=== PATIENT | male | born 1940 | race Caucasian/White ===

== ENCOUNTER 2018-10-17 14:52 | Inpatient (IN) | payer MEDICARE, OTHER ==
[2018-10-17] MEDS ORDERED: Albuterol/Ipratropium 3.0-0.5 MG/3 ML Neb Soln NEB ONE (15:00)
[2018-10-17] MEDS ORDERED: Albuterol/Ipratropium 3.0-0.5 MG/3 ML Neb Soln ONE (15:10)
[2018-10-17] MEDS ORDERED: Sodium Chloride 0.9% 10 ML Syringe FLUSH PRN (15:14)
[2018-10-17] MEDS ORDERED: Sodium Chloride 0.9% 2.5 ML Syringe FLUSH PRN (15:14)
--- NOTE | 2018-10-17 15:30 | EDM.PDOC ---
ED HPI GENERAL MEDICAL PROBLEM - General Chief Complaint: Respiratory Problem Stated Complaint: FLU SYMPTOMS Time Seen by Provider: 10/17/18 14:58 Source of Information: Reports: Patient History Limitations: Reports: No Limitations - History of Present Illness INITIAL COMMENTS - FREE TEXT/NARRATIVE: Presents to the ER reporting a 2 to three-day history of cough, fatigue, headache, low-grade fever. [id number] smoking history but quit 25 years ago. Long-standing chronic sinus problems with left deviated septum and inability to breathe through nose long-standing. No chest pain and denies a true sensation of shortness of breath. Headache Pain Score (Numeric/FACES): 9 - Related Data Allergies Allergy/AdvReac Type Severity Reaction Status Date / Time Penicillins Allergy Hives Verified 10/17/18 15:11 Home Meds: Home Meds Gabapentin [Neurontin] 10/17/18 [History] Hydrochlorothiazide [Microzide] 10/17/18 [History] Lisinopril 10/17/18 [History] Tamsulosin [Flomax] 10/17/18 [History] metFORMIN [Glucophage XR] 10/17/18 [History] Past Medical History Cardiovascular History: Reports: High Cholesterol, Hypertension Genitourinary History: Reports: BPH Neurological History: Reports: Neuropathy, Peripheral Endocrine/Metabolic History: Reports: Other (See Below) Other Endocrine/Metabolic History: pre-diabetic - Infectious Disease History Infectious Disease History: Reports: Chicken Pox, Measles, Mumps Social & Family History - Family History Family Medical History: Noncontributory - Tobacco Use Smoking Status *Q: Former Smoker Used Tobacco, but Quit: Yes Month/Year Tobacco Last Used: 25 years - Recreational Drug Use Recreational Drug Use: No ED ROS GENERAL - Review of Systems Review Of Systems: ROS reveals no pertinent complaints other than HPI. ED EXAM, GENERAL - Physical Exam Exam: See Below Exam Limited By: No Limitations General Appearance: Alert, Mild Distress Ears: Normal External Exam, Normal TMs Throat/Mouth: Normal Inspection, Normal Oropharynx Head: Atraumatic, Normocephalic Neck: Normal Inspection, Supple, Non-Tender. No: Lymphadenopathy (L), Lymphadenopathy (R) Respiratory/Chest: No Respiratory Distress, Lungs Clear, Normal Breath Sounds, No Accessory Muscle Use Cardiovascular: Normal Peripheral Pulses, Regular Rate, Rhythm Psychiatric: Normal Affect, Normal Mood Skin Exam: Warm, Dry, Intact, Normal Color, No Rash Lymphatic: No Adenopathy Course - Vital Signs Last Recorded V/S: Last Vital Signs Temp 37.2 C 10/17/18 15:00 Pulse 86 10/17/18 15:20 Resp 20 10/17/18 15:00 BP 125/71 10/17/18 15:00 Pulse Ox 78 L 10/17/18 15:00 - Orders/Labs/Meds Orders: Active Orders 24 hr Category Date Time Status EKG Documentation Completion [RC] STAT Care 10/17/18 15:14 Active RT Aerosol Therapy [RC] ASDIRECTED Care 10/17/18 15:50 Active CULTURE STREP A CONFIRMATION [] Stat Lab 10/17/18 15:27 Results STREP SCRN A RAPID W CULT CONF [] Stat Lab 10/17/18 15:27 Results Sodium Chloride 0.9% [Saline Flush] Med 10/17/18 15:14 Active 10 ml FLUSH ASDIRECTED PRN Sodium Chloride 0.9% [Saline Flush] Med 10/17/18 15:14 Active 2.5 ml FLUSH ASDIRECTED PRN Saline Lock Insert [OM.PC] Stat Oth 10/17/18 15:15 Ordered Medication Orders Sodium Chloride (Saline Flush) 10 ml FLUSH ASDIRECTED PRN PRN Reason: Keep Vein Open Sodium Chloride (Saline Flush) 2.5 ml FLUSH ASDIRECTED PRN PRN Reason: Keep Vein Open Labs: Laboratory Tests 10/17/18 10/17/18 10/17/18 Range/Units 15:20 15:20 15:20 WBC 6.27 (4.0-11.0) K/uL RBC 5.19 (4.50-5.90) M/uL Hgb 15.6 (13.0-17.0) g/dL Hct 49.7 (38.0-50.0) % MCV 95.8 (80.0-98.0) fL MCH 30.1 (27.0-32.0) pg MCHC 31.4 (31.0-37.0) g/dL RDW Std Deviation 55.0 (28.0-62.0) fl RDW Coeff of Edson 16 H (11.0-15.0) % Plt Count 151 (150-400) K/uL MPV 11.00 (7.40-12.00) fL Add Manual Diff YES Neutrophils % (Manual) 59 (48.0-80.0) % Band Neutrophils % 3 % Lymphocytes % (Manual) 21 (16.0-40.0) % Monocytes % (Manual) 16 H (0.0-15.0) % Eosinophils % (Manual) 1 (0.0-7.0) % Nucleated RBC % 0.0 /100WBC Absolute Seg Neuts 3.7 (1.4-5.7) Band Neutrophils # 0.2 Lymphocytes # (Manual) 1.3 (0.6-2.4) Monocytes # (Manual) 1.0 H (0.0-0.8) Eosinophils # (Manual) 0.1 (0.0-0.7) Nucleated RBCs # 0 K/uL Sodium 140 (136-148) mmol/L Potassium 3.9 (3.5-5.1) mmol/L Chloride 102 (98-107) mmol/L Carbon Dioxide 33.8 H (21.0-32.0) mmol/L BUN 25 H (7.0-18.0) mg/dL Creatinine 1.3 (0.8-1.3) mg/dL Est Cr Clr Drug Dosing 49.10 mL/min Estimated GFR (MDRD) 53.8 ml/min Glucose 119 H (74-106) mg/dL Calcium 9.4 (8.5-10.1) mg/dL Total Bilirubin 0.7 (0.2-1.0) mg/dL AST 31 (15-37) IU/L ALT 26 (14-63) IU/L Alkaline Phosphatase 104 (46-116) U/L Troponin I < 0.050 (0.000-0.056) ng/mL Total Protein 8.2 (6.4-8.2) g/dL Albumin 3.9 (3.4-5.0) g/dL Globulin 4.3 H (2.6-4.0) g/dL Albumin/Globulin Ratio 0.9 (0.9-1.6) Meds: Medications Generic Name Dose Route Start Last Admin Trade Name Freq PRN Reason Stop Dose Admin Sodium Chloride 10 ml 10/17/18 15:14 Saline Flush FLUSH ASDIRECTED PRN Keep Vein Open Sodium Chloride 2.5 ml 10/17/18 15:14 Saline Flush FLUSH ASDIRECTED PRN Keep Vein Open Discontinued Medications Generic Name Dose Route Start Last Admin Trade Name Adiel PRN Reason Stop Dose Admin Albuterol/Ipratropium Confirm 10/17/18 15:10 10/17/18 15:50 Duoneb 3.0-0.5 Mg/3 Ml Administered 10/17/18 15:11 Not Given Dose 3 ml .ROUTE .STK-MED ONE Albuterol/Ipratropium 3 ml 10/17/18 15:00 10/17/18 15:51 Duoneb 3.0-0.5 Mg/3 Ml NEB 10/17/18 15:01 3 ml ONETIME ONE Administration - Re-Assessments/Exams Free Text/Narrative Re-Assessment/Exam: 10/17/18 16:33 Dr. Allen here and reviewed case. Requires oxygen by mask at 8 L to keep his sat at 90%. Otherwise asymptomatic. Refer to observation Departure - Departure Time of Disposition: 16:33 Disposition: Refer to Observation Condition: Fair Clinical Impression: Influenza A - Discharge Information Referrals: PCP,None [Primary Care Provider] - Forms: ED Department Discharge - My Orders Last 24 Hours: My Active Orders 10/17/18 15:14 EKG Documentation Completion [RC] STAT Sodium Chloride 0.9% [Saline Flush] 10 ml FLUSH ASDIRECTED PRN Sodium Chloride 0.9% [Saline Flush] 2.5 ml FLUSH ASDIRECTED PRN 10/17/18 15:15 Saline Lock Insert [OM.PC] Stat 10/17/18 15:27 CULTURE STREP A CONFIRMATION [RM] Stat STREP SCRN A RAPID W CULT CONF [RM] Stat 10/17/18 15:50 RT Aerosol Therapy [RC] ASDIRECTED - Assessment/Plan Last 24 Hours: My Active Orders 10/17/18 15:14 EKG Documentation Completion [RC] STAT Sodium Chloride 0.9% [Saline Flush] 10 ml FLUSH ASDIRECTED PRN Sodium Chloride 0.9% [Saline Flush] 2.5 ml FLUSH ASDIRECTED PRN 10/17/18 15:15 Saline Lock Insert [OM.PC] Stat 10/17/18 15:27 CULTURE STREP A CONFIRMATION [RM] Stat STREP SCRN A RAPID W CULT CONF [RM] Stat 10/17/18 15:50 RT Aerosol Therapy [RC] ASDIRECTED
--- NOTE | 2018-10-17 15:52 | CR ---
EXAMINATION: Two-view chest (PA and Lateral views). HISTORY: Hypoxia. FINDINGS: The trachea is midline. The cardiomediastinal silhouette is within normal limits. Mild atelectasis and/or infiltrate within the lung bases. No pleural effusion. Interstitial prominence is also noted, likely representing emphysema. Osseous structures appear unremarkable. IMPRESSION: 1. Mild atelectasis and/or infiltrate.
[2018-10-17] MEDS ORDERED: Oseltamivir 75 MG Cap PO ONE (16:32)
[2018-10-17] MEDS ORDERED: Acetaminophen 500 MG Tab PO ONE (16:34)
[2018-10-17] MEDS ORDERED: Morphine 10 MG/ML Syringe IVPUSH PRN (16:48)
[2018-10-17] MEDS ORDERED: Ondansetron 4 MG Tab.DIS PO PRN (16:48)
[2018-10-17] MEDS ORDERED: Temazepam 15 MG Cap PO PRN (16:48)
[2018-10-17] MEDS ORDERED: Acetaminophen 325 MG Tab PO PRN (16:48)
[2018-10-17] MEDS ORDERED: Docusate Sodium 100 MG Cap PO PRN (16:48)
--- NOTE | 2018-10-17 16:57 | PCM.HP ---
H&P History of Present Illness - General Date of Service: 10/17/18 Admit Problem/Dx: Admission Diagnosis/Problem Admission Diagnosis/Problem Influenza Source of Information: Patient History Limitations: Reports: No Limitations - History of Present Illness Initial Comments - Free Text/Narative: The patient is a 77-year-old gentleman who has presented to the emergency department primarily with cough, chronic sinus congestion along with fever and chills. The patient says that he has been sick with these symptoms for approximately 2 days. The patient does not seek medical care locally. He was tested positive for influenza A in the emergency department. The patient has denied any pain. He has dizziness when coughing. The patient also has denied any nausea or vomiting. Patient says that other members in his family are sick as well. The patient's cough is dry although he feels like he needs to cough up something. He takes medication for prediabetes, hypertension and dyslipidemia. He has no other complaints presently. Onset of Symptoms: Reports: Gradual Duration of Symptoms: Reports: Day(s): Location: Reports: Chest Quality: Reports: Ache Severity: Moderate Improves with: Reports: Medication, Rest Worsens with: Reports: Breathing, Movement Context: Reports: Sick Contact Associated Symptoms: Reports: Cough, Fever/Chills Headache Pain Score (Numeric/FACES): 9 - Related Data Allergies/Adverse Reactions: Allergies Allergy/AdvReac Type Severity Reaction Status Date / Time Penicillins Allergy Hives Verified 10/17/18 15:11 Home Medications: Home Meds Gabapentin [Neurontin] 10/17/18 [History] Hydrochlorothiazide [Microzide] 10/17/18 [History] Lisinopril 10/17/18 [History] Tamsulosin [Flomax] 10/17/18 [History] metFORMIN [Glucophage XR] 10/17/18 [History] Past Medical History HEENT History: Reports: None Cardiovascular History: Reports: High Cholesterol, Hypertension Respiratory History: Reports: None Gastrointestinal History: Reports: None Genitourinary History: Reports: BPH Musculoskeletal History: Reports: None Neurological History: Reports: Neuropathy, Peripheral Psychiatric History: Reports: None Endocrine/Metabolic History: Reports: Other (See Below) Other Endocrine/Metabolic History: pre-diabetic Hematologic History: Reports: None Immunologic History: Reports: None Oncologic (Cancer) History: Reports: None Dermatologic History: Reports: None - Infectious Disease History Infectious Disease History: Reports: Chicken Pox, Measles, Mumps Social & Family History - Family History Family Medical History: Noncontributory - Tobacco Use Smoking Status *Q: Former Smoker Used Tobacco, but Quit: Yes Month/Year Tobacco Last Used: 25 years - Recreational Drug Use Recreational Drug Use: No - Living Situation & Occupation Living situation: Reports: , with Family Occupation: Retired H&P Review of Systems - Review of Systems: Review Of Systems: See Below General: Reports: Fever, Chills, Weakness HEENT: Reports: No Symptoms, Headaches Pulmonary: Reports: Shortness of Breath, Wheezing, Cough. Denies: Sputum, Hemoptysis Cardiovascular: Reports: Lightheadedness Gastrointestinal: Reports: No Symptoms Genitourinary: Reports: Retention Musculoskeletal: Reports: No Symptoms Skin: Reports: No Symptoms Psychiatric: Reports: No Symptoms Neurological: Reports: No Symptoms Hematologic/Lymphatic: Reports: No Symptoms Immunologic: Reports: No Symptoms Exam - Exam Exam: See Below - Vital Signs Vital Signs: Last Vital Signs Temp 36.6 C 10/17/18 16:33 Pulse 80 10/17/18 16:33 Resp 18 10/17/18 16:33 BP 166/75 H 10/17/18 16:33 Pulse Ox 90 L 10/17/18 16:33 Weight: 110.677 kg - Exam Quality Assessment: Supplemental Oxygen General: Alert, Oriented, Cooperative, Mild Distress HEENT: EACs Clear, EOMI, Hearing Intact, Nares Patent, PERRLA. No: Conjunctiva Clear (Inflamed), Mucosa Moist & [place] (Inflamed without pustular formations) Neck: Supple, Trachea Midline Lungs: Rales (Bibasilar) Cardiovascular: Regular Rate, Regular Rhythm GI/Abdominal Exam: Normal Bowel Sounds, Non-Tender, No Distention, Other (Obese) (Male) Exam: Deferred Rectal (Males) Exam: Deferred Back Exam: Normal Inspection, Full Range of Motion Extremities: Normal Inspection, No Pedal Edema Skin: Warm, Dry, Intact Neurological: Cranial Nerves Intact Neuro Extensive - Motor, Sensory, Reflexes: CN II-XII Intact Psychiatric: Alert, Normal Affect, Normal Mood - Patient Data Lab Results Last 24 hrs: Laboratory Results - last 24 hr 10/17/18 10/17/18 10/17/18 Range/Units 15:20 15:20 15:20 WBC 6.27 (4.0-11.0) K/uL RBC 5.19 (4.50-5.90) M/uL Hgb 15.6 (13.0-17.0) g/dL Hct 49.7 (38.0-50.0) % MCV 95.8 (80.0-98.0) fL MCH 30.1 (27.0-32.0) pg MCHC 31.4 (31.0-37.0) g/dL RDW Std Deviation 55.0 (28.0-62.0) fl RDW Coeff of Edson 16 H (11.0-15.0) % Plt Count 151 (150-400) K/uL MPV 11.00 (7.40-12.00) fL Add Manual Diff YES Neutrophils % (Manual) 59 (48.0-80.0) % Band Neutrophils % 3 % Lymphocytes % (Manual) 21 (16.0-40.0) % Monocytes % (Manual) 16 H (0.0-15.0) % Eosinophils % (Manual) 1 (0.0-7.0) % Nucleated RBC % 0.0 /100WBC Absolute Seg Neuts 3.7 (1.4-5.7) Band Neutrophils # 0.2 Lymphocytes # (Manual) 1.3 (0.6-2.4) Monocytes # (Manual) 1.0 H (0.0-0.8) Eosinophils # (Manual) 0.1 (0.0-0.7) Nucleated RBCs # 0 K/uL Sodium 140 (136-148) mmol/L Potassium 3.9 (3.5-5.1) mmol/L Chloride 102 (98-107) mmol/L Carbon Dioxide 33.8 H (21.0-32.0) mmol/L BUN 25 H (7.0-18.0) mg/dL Creatinine 1.3 (0.8-1.3) mg/dL Est Cr Clr Drug Dosing 49.10 mL/min Estimated GFR (MDRD) 53.8 ml/min Glucose 119 H (74-106) mg/dL Calcium 9.4 (8.5-10.1) mg/dL Total Bilirubin 0.7 (0.2-1.0) mg/dL AST 31 (15-37) IU/L ALT 26 (14-63) IU/L Alkaline Phosphatase 104 (46-116) U/L Troponin I < 0.050 (0.000-0.056) ng/mL Total Protein 8.2 (6.4-8.2) g/dL Albumin 3.9 (3.4-5.0) g/dL Globulin 4.3 H (2.6-4.0) g/dL Albumin/Globulin Ratio 0.9 (0.9-1.6) Result Diagrams: 10/18/18 06:00 10/18/18 06:00 Sammy Results Last 24 hrs: Microbiology 10/17/18 15:27 Group A Streptococcus Rapid Screen - Final Throat NEGATIVE STREP A SCREEN 10/17/18 15:27 Influenza Type A Antigen Screen - Final Nasopharyngeal Swab Positive Influenza A Ag Influenza Type B Antigen Screen - Final NEGATIVE INFLUENZA B VIRUS AG - Problem List (1) Acute respiratory failure SNOMED Code(s): 85579316 ICD Code: J96.00 - ACUTE RESPIRATORY FAILURE, UNSP W HYPOXIA OR HYPERCAPNIA Status: Acute Priority: High Current Visit: Yes Qualifiers: Respiratory failure complication: hypoxia Qualified Code(s): J96.01 - Acute respiratory failure with hypoxia (2) Influenza A SNOMED Code(s): 423107728 ICD Code: J10.1 - FLU DUE TO OTH IDENT INFLUENZA VIRUS W OTH RESP MANIFEST Status: Acute Priority: High Current Visit: Yes (3) BPH (benign prostatic hyperplasia) SNOMED Code(s): 441717281 ICD Code: N40.0 - BENIGN PROSTATIC HYPERPLASIA WITHOUT LOWER URINRY TRACT SYMP Status: Chronic Priority: Medium Current Visit: Yes Qualifiers: Lower urinary tract symptom presence: symptoms present Lower urinary tract symptom detail: urinary hesitancy Qualified Code(s): N40.1 - Benign prostatic hyperplasia with lower urinary tract symptoms; R39.11 - Hesitancy of micturition (4) Dyslipidemia associated with type 2 diabetes mellitus SNOMED Code(s): 60563394 ICD Code: E11.69 - TYPE 2 DIABETES MELLITUS WITH OTHER SPECIFIED COMPLICATION ; E78.5 - HYPERLIPIDEMIA, UNSPECIFIED Status: Chronic Priority: High Current Visit: Yes (5) Hypertension SNOMED Code(s): 97169087 ICD Code: I10 - ESSENTIAL (PRIMARY) HYPERTENSION Status: Chronic Priority : High Current Visit: Yes Qualifiers: Hypertension type: essential hypertension Qualified Code(s): I10 - Essential (primary) hypertension (6) Obesity (BMI 30-39.9) SNOMED Code(s): 429772780, 527846972 ICD Code: E66.9 - OBESITY, UNSPECIFIED Status: Chronic Priority: Medium Current Visit: Yes (7) Pre-diabetes SNOMED Code(s): 988686138 ICD Code: R73.03 - PREDIABETES Status: Chronic Priority: Medium Current Visit: Yes Problem List Initiated/Reviewed/Updated: Yes Orders Last 24hrs: Active Orders 24 hr Category Date Time Status Patient Status [ADT] Stat ADT 10/17/18 16:34 Active Blood Glucose Check, Bedside [RC] WITHMEALSANDBED Care 10/17/18 16:48 Active Blood Glucose Check, Bedside [RC] WITHMEALSANDBED Care 10/17/18 16:48 Active Diabetes Education [RC] Click to Edit Care 10/17/18 16:53 Active EKG Documentation Completion [RC] STAT Care 10/17/18 15:14 Active Oxygen Therapy [RC] PRN Care 10/17/18 16:48 Active RT Aerosol Therapy [RC] ASDIRECTED Care 10/17/18 15:50 Active RT Aerosol Therapy [RC] ASDIRECTED Care 10/17/18 16:53 Active Up ad Zahraa [RC] ASDIRECTED Care 10/17/18 16:48 Active VTE/DVT Education [RC] PER UNIT ROUTINE Care 10/17/18 16:48 Active Vital Signs [RC] Q4H Care 10/17/18 16:48 Active Consistent Carbohydrate Diet [DIET] Diet 10/17/18 Breakfast Active CBC WITH AUTO DIFF [HEME] AM Lab 10/18/18 05:11 Ordered COMPREHENSIVE METABOLIC PN,CMP [CHEM] AM Lab 10/18/18 05:11 Ordered CULTURE STREP A CONFIRMATION [RM] Stat Lab 10/17/18 15:27 Results STREP SCRN A RAPID W CULT CONF [RM] Stat Lab 10/17/18 15:27 Results Acetaminophen [Tylenol] Med 10/17/18 16:48 Active 650 mg PO Q4H PRN Albuterol/Ipratropium [DuoNeb 3.0-0.5 MG/3 ML] Med 10/17/18 16:48 Active 3 ml NEB Q4HRRT PRN Azithromycin [Zithromax] 500 mg Med 10/17/18 17:00 Active Sodium Chloride 0.9% [Normal Saline] 250 ml IV Q24H Docusate Sodium [Colace] Med 10/17/18 16:48 Active 100 mg PO BID PRN Enoxaparin [Lovenox] Med 10/17/18 17:00 Active 30 mg SUBCUT Q24H Insulin Aspart [NovoLOG] Med 10/17/18 21:00 Active See Protocol SUBCUT ACBREAKFASTANDBED Morphine Med 10/17/18 16:48 Active 2 mg IVPUSH Q2H PRN Ondansetron [Zofran ODT] Med 10/17/18 16:48 Active 4 mg PO Q4H PRN Oseltamivir [Tamiflu] Med 10/18/18 09:00 Active 75 mg PO DAILY Sodium Chloride 0.9% [Normal Saline] 1,000 ml Med 10/17/18 17:00 Active IV ASDIRECTED Sodium Chloride 0.9% [Saline Flush] Med 10/17/18 15:14 Active 10 ml FLUSH ASDIRECTED PRN Sodium Chloride 0.9% [Saline Flush] Med 10/17/18 15:14 Active 2.5 ml FLUSH ASDIRECTED PRN Temazepam [Restoril] Med 10/17/18 16:48 Active 15 mg PO BEDTIME PRN oxyCODONE Med 10/17/18 16:48 Active 5 mg PO Q4H PRN Glucose Management Sub Q Reflex [OM.PC] Click To Edit Oth 10/17/18 16:48 Ordered Saline Lock Insert [OM.PC] Stat Oth 10/17/18 15:15 Ordered Resuscitation Status Routine Resus Stat 10/17/18 16:48 Ordered Medication Orders Acetaminophen (Tylenol) 650 mg PO Q4H PRN PRN Reason: Pain (Mild 1-3)/fever Albuterol/Ipratropium (Duoneb 3.0-0.5 Mg/3 Ml) 3 ml NEB Q4HRRT PRN PRN Reason: Shortness Of Breath/wheezing Docusate Sodium (Colace) 100 mg PO BID PRN PRN Reason: Constipation Enoxaparin Sodium (Lovenox) 30 mg SUBCUT Q24H JANAE Sodium Chloride (Normal Saline) 1,000 mls @ 75 mls/hr IV ASDIRECTED JANAE Azithromycin 500 mg/ Sodium (Chloride) 250 mls @ 250 mls/hr IV Q24H [facility] Insulin Aspart (Novolog) 0 unit SUBCUT ACBREAKFASTANDBED JANAE; Protocol Morphine Sulfate (Morphine) 2 mg IVPUSH Q2H PRN PRN Reason: Pain (severe 7-10) Stop: 10/18/18 16:50 Ondansetron HCl (Zofran Odt) 4 mg PO Q4H PRN PRN Reason: nausea, able to take PO Oseltamivir Phosphate (Tamiflu) 75 mg PO DAILY [facility] Oxycodone HCl (Oxycodone) 5 mg PO Q4H PRN PRN Reason: Pain (moderate 4-6) Sodium Chloride (Saline Flush) 10 ml FLUSH ASDIRECTED PRN PRN Reason: Keep Vein Open Last Admin: 10/17/18 16:40 Dose: 10 ml Sodium Chloride (Saline Flush) 2.5 ml FLUSH ASDIRECTED PRN PRN Reason: Keep Vein Open Last Admin: 10/17/18 16:40 Dose: 2.5 ml Temazepam (Restoril) 15 mg PO BEDTIME PRN PRN Reason: Sleep Assessment/Plan Comment:: The patient is a 77-year-old gentleman who had been admitted to the emergency department secondary to respiratory distress from influenza A. His home medication had also included hydrochlorothiazide, lisinopril, metformin and tamsulosin. These problems were addressed and his problem list. The patient will be admitted as an inpatient and he will be kept on an appropriate ADA diet along with Accu-Cheks before meals and at bedtime. Patient had previously denied being diabetic however, he says that his metformin was designed to prevent diabetes. Hemoglobin A1c was ordered. I've also ordered repeat laboratory studies in the morning. The patient will be kept on Lovenox for DVT prophylaxis at 30 mg subcutaneous daily. The patient also has been started on Tamiflu as he is with in 48-72 hour window for this to be effective. Because of the patient's respiratory status I've also elected to start him on azithromycin 500 mg IV daily to assist with any other coinfections. The patient says that he has had to use CPAP at home however this is been extremely uncomfortable for him. He quit using this many years ago. Patient says that he has extreme difficulty in breathing out of the left side of his naris and this has been going on for many years.
[2018-10-17] MEDS ORDERED: Azithromycin 500 MG in Sodium Chloride 0.9% 250 ML IV SCH ×3 (17:00→18:00)
[2018-10-17 17:36] LABS: HEMOGLOBIN A1C 6.2 % (4.5-6.2)
[2018-10-17] MEDS: Azithromycin 500 MG in Sodium Chloride 0.9% 250 ML IV SCH (17:58)
[2018-10-17] MEDS: Enoxaparin 30 MG/0.3 ML Syringe SUBCUT SCH (18:01)
[2018-10-17] MEDS: Sodium Chloride 0.9% 1,000 ML IV SCH (18:01)
[2018-10-17] MEDS ORDERED: Insulin Aspart 100 Units/ML 3 ML Pen SUBCUT SCH (21:00)
[2018-10-17] MEDS: Insulin Aspart 100 Units/ML 3 ML Pen SUBCUT SCH (22:35)
[2018-10-18] MEDS: Albuterol/Ipratropium 3.0-0.5 MG/3 ML Neb Soln NEB PRN (06:20)
[2018-10-18] MEDS: Insulin Aspart 100 Units/ML 3 ML Pen SUBCUT SCH ×4 (06:50→21:10)
[2018-10-18] MEDS: Sodium Chloride 0.9% 1,000 ML IV SCH ×2 (07:40→21:58)
--- NOTE | 2018-10-18 07:47 | PCM.PN ---
- General Info Date of Service: 10/18/18 Admission Dx/Problem (Free Text): Admission Diagnosis/Problem Admission Diagnosis/Problem Influenza Subjective Update: The patient is a 77-year-old gentleman who had presented to the emergency department with cough, chronic sinus congestion fever and chills. He was positive for influenza A. Overnight the patient had required intervention with BiPAP to help maintain oxygen saturations. The patient tolerated this poorly. He has had difficulty with CPAP in the past. The patient today has improved somewhat. He is requiring less FiO2 and his oxygen demands have improved. Patient says that his pain is controlled. Functional Status: Reports: Pain Controlled, Tolerating Diet - Review of Systems General: Reports: Weakness HEENT: Reports: Headaches Pulmonary: Reports: Shortness of Breath, Wheezing Cardiovascular: Reports: No Symptoms Gastrointestinal: Reports: No Symptoms Genitourinary: Reports: No Symptoms Musculoskeletal: Reports: No Symptoms Skin: Reports: No Symptoms Neurological: Reports: No Symptoms Psychiatric: Reports: No Symptoms - Patient Data Vitals - Most Recent: Last Vital Signs Temp 37.7 C 10/18/18 04:00 Pulse 81 10/18/18 00:49 Resp 23 H 10/18/18 04:00 BP 145/78 H 10/18/18 04:00 Pulse Ox 95 10/18/18 04:00 Weight - Most Recent: 110.677 kg I&O - Last 24 Hours: Intake & Output 10/17/18 10/18/18 10/18/18 22:59 06:59 14:59 Intake Total 250 820 Output Total 380 Balance 250 440 Lab Results Last 24 Hours: Laboratory Results - last 24 hr 10/17/18 10/17/18 10/17/18 Range/Units 15:20 15:20 15:20 WBC 6.27 (4.0-11.0) K/uL RBC 5.19 (4.50-5.90) M/uL Hgb 15.6 (13.0-17.0) g/dL Hct 49.7 (38.0-50.0) % MCV 95.8 (80.0-98.0) fL MCH 30.1 (27.0-32.0) pg MCHC 31.4 (31.0-37.0) g/dL RDW Std Deviation 55.0 (28.0-62.0) fl RDW Coeff of Edson 16 H (11.0-15.0) % Plt Count 151 (150-400) K/uL MPV 11.00 (7.40-12.00) fL Neut % (Auto) (48.0-80.0) % Lymph % (Auto) (16.0-40.0) % [place] % (Auto) (0.0-15.0) % Eos % (Auto) (0.0-7.0) % Baso % (Auto) (0.0-1.5) % Neut # (Auto) (1.4-5.7) K/uL Lymph # (Auto) (0.6-2.4) K/uL [place] # (Auto) (0.0-0.8) K/uL Eos # (Auto) (0.0-0.7) K/uL Baso # (Auto) (0.0-0.1) K/uL Add Manual Diff YES Neutrophils % (Manual) 59 (48.0-80.0) % Band Neutrophils % 3 % Lymphocytes % (Manual) 21 (16.0-40.0) % Monocytes % (Manual) 16 H (0.0-15.0) % Eosinophils % (Manual) 1 (0.0-7.0) % Nucleated RBC % 0.0 /100WBC Absolute Seg Neuts 3.7 (1.4-5.7) Band Neutrophils # 0.2 Lymphocytes # (Manual) 1.3 (0.6-2.4) Monocytes # (Manual) 1.0 H (0.0-0.8) Eosinophils # (Manual) 0.1 (0.0-0.7) Nucleated RBCs # 0 K/uL ABG pH (7.35-7.45) ABG pCO2 (35-45) mmHG ABG pO2 (75-100) mmHG ABG HCO3 (22-26) mEq/L ABG Total CO2 ABG Base Excess (-2.0-2.0) Sodium 140 (136-148) mmol/L Potassium 3.9 (3.5-5.1) mmol/L Chloride 102 (98-107) mmol/L Carbon Dioxide 33.8 H (21.0-32.0) mmol/L BUN 25 H (7.0-18.0) mg/dL Creatinine 1.3 (0.8-1.3) mg/dL Est Cr Clr Drug Dosing 49.10 mL/min Estimated GFR (MDRD) 53.8 ml/min Glucose 119 H (74-106) mg/dL POC Glucose (60-110) mg/dL Hemoglobin A1c (4.5-6.2) % Calcium 9.4 (8.5-10.1) mg/dL Total Bilirubin 0.7 (0.2-1.0) mg/dL AST 31 (15-37) IU/L ALT 26 (14-63) IU/L Alkaline Phosphatase 104 (46-116) U/L Troponin I < 0.050 (0.000-0.056) ng/mL Total Protein 8.2 (6.4-8.2) g/dL Albumin 3.9 (3.4-5.0) g/dL Globulin 4.3 H (2.6-4.0) g/dL Albumin/Globulin Ratio 0.9 (0.9-1.6) 10/17/18 10/17/18 10/17/18 Range/Units 15:20 17:43 19:38 WBC (4.0-11.0) K/uL RBC (4.50-5.90) M/uL Hgb (13.0-17.0) g/dL Hct (38.0-50.0) % MCV (80.0-98.0) fL MCH (27.0-32.0) pg MCHC (31.0-37.0) g/dL RDW Std Deviation (28.0-62.0) fl RDW Coeff of Edson (11.0-15.0) % Plt Count (150-400) K/uL MPV (7.40-12.00) fL Neut % (Auto) (48.0-80.0) % Lymph % (Auto) (16.0-40.0) % [place] % (Auto) (0.0-15.0) % Eos % (Auto) (0.0-7.0) % Baso % (Auto) (0.0-1.5) % Neut # (Auto) (1.4-5.7) K/uL Lymph # (Auto) (0.6-2.4) K/uL [place] # (Auto) (0.0-0.8) K/uL Eos # (Auto) (0.0-0.7) K/uL Baso # (Auto) (0.0-0.1) K/uL Add Manual Diff Neutrophils % (Manual) (48.0-80.0) % Band Neutrophils % % Lymphocytes % (Manual) (16.0-40.0) % Monocytes % (Manual) (0.0-15.0) % Eosinophils % (Manual) (0.0-7.0) % Nucleated RBC % /100WBC Absolute Seg Neuts (1.4-5.7) Band Neutrophils # Lymphocytes # (Manual) (0.6-2.4) Monocytes # (Manual) (0.0-0.8) Eosinophils # (Manual) (0.0-0.7) Nucleated RBCs # K/uL ABG pH 7.278 L (7.35-7.45) ABG pCO2 73 H (35-45) mmHG ABG pO2 78 (75-100) mmHG ABG HCO3 34 H (22-26) mEq/L ABG Total CO2 30.8 ABG Base Excess 4.5 H (-2.0-2.0) Sodium (136-148) mmol/L Potassium (3.5-5.1) mmol/L Chloride (98-107) mmol/L Carbon Dioxide (21.0-32.0) mmol/L BUN (7.0-18.0) mg/dL Creatinine (0.8-1.3) mg/dL Est Cr Clr Drug Dosing mL/min Estimated GFR (MDRD) ml/min Glucose (74-106) mg/dL POC Glucose 86 (60-110) mg/dL Hemoglobin A1c 6.2 (4.5-6.2) % Calcium (8.5-10.1) mg/dL Total Bilirubin (0.2-1.0) mg/dL AST (15-37) IU/L ALT (14-63) IU/L Alkaline Phosphatase (46-116) U/L Troponin I (0.000-0.056) ng/mL Total Protein (6.4-8.2) g/dL Albumin (3.4-5.0) g/dL Globulin (2.6-4.0) g/dL Albumin/Globulin Ratio (0.9-1.6) 02/05/19 02/05/19 02/06/19 Range/Units 21:41 22:26 06:00 WBC 6.23 (4.0-11.0) K/uL RBC 4.85 (4.50-5.90) M/uL Hgb 14.5 (13.0-17.0) g/dL Hct 47.4 (38.0-50.0) % MCV 97.7 (80.0-98.0) fL MCH 29.9 (27.0-32.0) pg MCHC 30.6 L (31.0-37.0) g/dL RDW Std Deviation 56.6 (28.0-62.0) fl RDW Coeff of Edson 16 H (11.0-15.0) % Plt Count 130 L (150-400) K/uL MPV 10.60 (7.40-12.00) fL Neut % (Auto) 63.0 (48.0-80.0) % Lymph % (Auto) 20.1 (16.0-40.0) % [place] % (Auto) 16.7 H (0.0-15.0) % Eos % (Auto) 0.2 (0.0-7.0) % Baso % (Auto) 0.0 (0.0-1.5) % Neut # (Auto) 3.9 (1.4-5.7) K/uL Lymph # (Auto) 1.3 (0.6-2.4) K/uL [place] # (Auto) 1.0 H (0.0-0.8) K/uL Eos # (Auto) 0.0 (0.0-0.7) K/uL Baso # (Auto) 0.0 (0.0-0.1) K/uL Add Manual Diff Neutrophils % (Manual) (48.0-80.0) % Band Neutrophils % % Lymphocytes % (Manual) (16.0-40.0) % Monocytes % (Manual) (0.0-15.0) % Eosinophils % (Manual) (0.0-7.0) % Nucleated RBC % 0.0 /100WBC Absolute Seg Neuts (1.4-5.7) Band Neutrophils # Lymphocytes # (Manual) (0.6-2.4) Monocytes # (Manual) (0.0-0.8) Eosinophils # (Manual) (0.0-0.7) Nucleated RBCs # 0 K/uL ABG pH 7.286 L (7.35-7.45) ABG pCO2 73 H (35-45) mmHG ABG pO2 80 (75-100) mmHG ABG HCO3 35 H (22-26) mEq/L ABG Total CO2 31.3 ABG Base Excess 5.2 H (-2.0-2.0) Sodium (136-148) mmol/L Potassium (3.5-5.1) mmol/L Chloride (98-107) mmol/L Carbon Dioxide (21.0-32.0) mmol/L BUN (7.0-18.0) mg/dL Creatinine (0.8-1.3) mg/dL Est Cr Clr Drug Dosing mL/min Estimated GFR (MDRD) ml/min Glucose (74-106) mg/dL POC Glucose 95 (60-110) mg/dL Hemoglobin A1c (4.5-6.2) % Calcium (8.5-10.1) mg/dL Total Bilirubin (0.2-1.0) mg/dL AST (15-37) IU/L ALT (14-63) IU/L Alkaline Phosphatase (46-116) U/L Troponin I (0.000-0.056) ng/mL Total Protein (6.4-8.2) g/dL Albumin (3.4-5.0) g/dL Globulin (2.6-4.0) g/dL Albumin/Globulin Ratio (0.9-1.6) 10/18/18 10/18/18 Range/Units 06:00 06:10 WBC (4.0-11.0) K/uL RBC (4.50-5.90) M/uL Hgb (13.0-17.0) g/dL Hct (38.0-50.0) % MCV (80.0-98.0) fL MCH (27.0-32.0) pg MCHC (31.0-37.0) g/dL RDW Std Deviation (28.0-62.0) fl RDW Coeff of Edson (11.0-15.0) % Plt Count (150-400) K/uL MPV (7.40-12.00) fL Neut % (Auto) (48.0-80.0) % Lymph % (Auto) (16.0-40.0) % [place] % (Auto) (0.0-15.0) % Eos % (Auto) (0.0-7.0) % Baso % (Auto) (0.0-1.5) % Neut # (Auto) (1.4-5.7) K/uL Lymph # (Auto) (0.6-2.4) K/uL [place] # (Auto) (0.0-0.8) K/uL Eos # (Auto) (0.0-0.7) K/uL Baso # (Auto) (0.0-0.1) K/uL Add Manual Diff Neutrophils % (Manual) (48.0-80.0) % Band Neutrophils % % Lymphocytes % (Manual) (16.0-40.0) % Monocytes % (Manual) (0.0-15.0) % Eosinophils % (Manual) (0.0-7.0) % Nucleated RBC % /100WBC Absolute Seg Neuts (1.4-5.7) Band Neutrophils # Lymphocytes # (Manual) (0.6-2.4) Monocytes # (Manual) (0.0-0.8) Eosinophils # (Manual) (0.0-0.7) Nucleated RBCs # K/uL ABG pH 7.304 L (7.35-7.45) ABG pCO2 70 H (35-45) mmHG ABG pO2 84 (75-100) mmHG ABG HCO3 35 H (22-26) mEq/L ABG Total CO2 31.4 ABG Base Excess 5.7 H (-2.0-2.0) Sodium 140 (136-148) mmol/L Potassium 4.6 (3.5-5.1) mmol/L Chloride 102 (98-107) mmol/L Carbon Dioxide 33.3 H (21.0-32.0) mmol/L BUN 20 H (7.0-18.0) mg/dL Creatinine 1.3 (0.8-1.3) mg/dL Est Cr Clr Drug Dosing 49.10 mL/min Estimated GFR (MDRD) 53.8 ml/min Glucose 109 H (74-106) mg/dL POC Glucose (60-110) mg/dL Hemoglobin A1c (4.5-6.2) % Calcium 8.8 (8.5-10.1) mg/dL Total Bilirubin 0.6 (0.2-1.0) mg/dL AST 33 (15-37) IU/L ALT 22 (14-63) IU/L Alkaline Phosphatase 93 (46-116) U/L Troponin I (0.000-0.056) ng/mL Total Protein 7.5 (6.4-8.2) g/dL Albumin 3.4 (3.4-5.0) g/dL Globulin 4.1 H (2.6-4.0) g/dL Albumin/Globulin Ratio 0.8 L (0.9-1.6) Sammy Results Last 24 Hours: Microbiology 10/17/18 15:27 Group A Streptococcus Rapid Screen - Final Throat NEGATIVE STREP A SCREEN 10/17/18 15:27 Influenza Type A Antigen Screen - Final Nasopharyngeal Swab Positive Influenza A Ag Influenza Type B Antigen Screen - Final NEGATIVE INFLUENZA B VIRUS AG Med Orders - Current: Current Medications Acetaminophen (Tylenol) 650 mg PO Q4H PRN PRN Reason: Pain (Mild 1-3)/fever Albuterol/Ipratropium (Duoneb 3.0-0.5 Mg/3 Ml) 3 ml NEB Q4HRRT PRN PRN Reason: Shortness Of Breath/wheezing Last Admin: 10/18/18 06:20 Dose: 3 ml Docusate Sodium (Colace) 100 mg PO BID PRN PRN Reason: Constipation Enoxaparin Sodium (Lovenox) 30 mg SUBCUT Q24H [facility] Last Admin: 10/17/18 18:01 Dose: 30 mg Sodium Chloride (Normal Saline) 1,000 mls @ 75 mls/hr IV ASDIRECTED [facility] Last Admin: 10/18/18 07:40 Dose: 75 mls/hr Azithromycin 500 mg/ Sodium (Chloride) 250 mls @ 250 mls/hr IV Q24H [facility] Last Admin: 10/17/18 17:58 Dose: 250 mls/hr Insulin Aspart (Novolog) 0 unit SUBCUT QIDACANDBED [facility]; Protocol Last Admin: 10/18/18 06:50 Dose: Not Given Morphine Sulfate (Morphine) 2 mg IVPUSH Q2H PRN PRN Reason: Pain (severe 7-10) Stop: 10/18/18 16:50 Ondansetron HCl (Zofran Odt) 4 mg PO Q4H PRN PRN Reason: nausea, able to take PO Oseltamivir Phosphate (Tamiflu) 75 mg PO DAILY [facility] Oxycodone HCl (Oxycodone) 5 mg PO Q4H PRN PRN Reason: Pain (moderate 4-6) Sodium Chloride (Saline Flush) 10 ml FLUSH ASDIRECTED PRN PRN Reason: Keep Vein Open Last Admin: 10/17/18 16:40 Dose: 10 ml Sodium Chloride (Saline Flush) 2.5 ml FLUSH ASDIRECTED PRN PRN Reason: Keep Vein Open Last Admin: 10/17/18 16:40 Dose: 2.5 ml Temazepam (Restoril) 15 mg PO BEDTIME PRN PRN Reason: Sleep Discontinued Medications Acetaminophen (Tylenol Extra Strength) 1,000 mg PO ONETIME ONE Stop: 10/17/18 16:35 Last Admin: 10/17/18 16:39 Dose: 1,000 mg Albuterol/Ipratropium (Duoneb 3.0-0.5 Mg/3 Ml) Confirm Administered Dose 3 ml .ROUTE .STK-MED ONE Stop: 10/17/18 15:11 Last Admin: 10/17/18 15:50 Dose: Not Given Albuterol/Ipratropium (Duoneb 3.0-0.5 Mg/3 Ml) 3 ml NEB ONETIME ONE Stop: 10/17/18 15:01 Last Admin: 10/17/18 15:51 Dose: 3 ml Azithromycin 500 mg/ Sodium (Chloride) 250 mls @ 250 mls/hr IV Q24H [facility] Last Admin: 10/17/18 18:08 Dose: Not Given Azithromycin 500 mg/ Sodium (Chloride) 250 mls @ 250 mls/hr IV Q24H [facility] Last Admin: 10/17/18 18:08 Dose: Not Given Azithromycin 500 mg/ Sodium (Chloride) 250 mls @ 250 mls/hr IV Q24H [facility] Insulin Aspart (Novolog) 0 unit SUBCUT ACBREAKFASTANDBED [facility]; Protocol Oseltamivir Phosphate (Tamiflu) 75 mg PO ONETIME ONE Stop: 10/17/18 16:33 Last Admin: 10/17/18 16:39 Dose: 75 mg - Exam Quality Assessment: Supplemental Oxygen General: Alert, Oriented, Cooperative, Mild Distress HEENT: Pupils Equal, Pupils Reactive, EOMI. No: Mucous Membr. Moist/[place] (Dry) Neck: Supple, Trachea Midline Lungs: Decreased Breath Sounds, Crackles, Rales Cardiovascular: Regular Rate, Regular Rhythm GI/Abdominal Exam: Normal Bowel Sounds, Soft, No Distention (Male) Exam: Deferred Back Exam: Normal Inspection, Full Range of Motion Extremities: Normal Inspection, No Pedal Edema Skin: Warm, Dry, Intact Psy/Mental Status: Alert, Normal Mood, Agitated - Problem List & Annotations (1) Acute respiratory failure SNOMED Code(s): 58074751 Code(s): J96.00 - ACUTE RESPIRATORY FAILURE, UNSP W HYPOXIA OR HYPERCAPNIA Status: Acute Priority: High Current Visit: Yes Qualifiers: Respiratory failure complication: hypoxia Qualified Code(s): J96.01 - Acute respiratory failure with hypoxia (2) Influenza A SNOMED Code(s): 064676492 Code(s): J10.1 - FLU DUE TO OTH IDENT INFLUENZA VIRUS W OTH RESP MANIFEST Status: Acute Priority: High Current Visit: Yes (3) BPH (benign prostatic hyperplasia) SNOMED Code(s): 322979535 Code(s): N40.0 - BENIGN PROSTATIC HYPERPLASIA WITHOUT LOWER URINRY TRACT SYMP Status: Chronic Priority: Medium Current Visit: Yes Qualifiers: Lower urinary tract symptom presence: symptoms present Lower urinary tract symptom detail: urinary hesitancy Qualified Code(s): N40.1 - Benign prostatic hyperplasia with lower urinary tract symptoms; R39.11 - Hesitancy of micturition (4) Dyslipidemia associated with type 2 diabetes mellitus SNOMED Code(s): 03802777 Code(s): E11.69 - TYPE 2 DIABETES MELLITUS WITH OTHER SPECIFIED COMPLICATION ; E78.5 - HYPERLIPIDEMIA, UNSPECIFIED Status: Resolved Priority: High Current Visit: Yes (5) Hypertension SNOMED Code(s): 10106351 Code(s): I10 - ESSENTIAL (PRIMARY) HYPERTENSION Status: Chronic Priority : High Current Visit: Yes Qualifiers: Hypertension type: essential hypertension Qualified Code(s): I10 - Essential (primary) hypertension (6) Obesity (BMI 30-39.9) SNOMED Code(s): 852989568, 294135452 Code(s): E66.9 - OBESITY, UNSPECIFIED Status: Chronic Priority: Medium Current Visit: Yes (7) Pre-diabetes SNOMED Code(s): 634647111 Code(s): R73.03 - PREDIABETES Status: Chronic Priority: Medium Current Visit: Yes - Problem List Review Problem List Initiated/Reviewed/Updated: Yes - My Orders Last 24 Hours: My Active Orders 10/17/18 16:48 Blood Glucose Check, Bedside [RC] WITHMEALSANDBED Oxygen Therapy [RC] PRN Up ad Zahraa [RC] ASDIRECTED VTE/DVT Education [RC] PER UNIT ROUTINE Vital Signs [RC] Q4HR Acetaminophen [Tylenol] 650 mg PO Q4H PRN Albuterol/Ipratropium [DuoNeb 3.0-0.5 MG/3 ML] 3 ml NEB Q4HRRT PRN Docusate Sodium [Colace] 100 mg PO BID PRN Morphine 2 mg IVPUSH Q2H PRN Ondansetron [Zofran ODT] 4 mg PO Q4H PRN Temazepam [Restoril] 15 mg PO BEDTIME PRN oxyCODONE 5 mg PO Q4H PRN Glucose Management Sub Q Reflex [OM.PC] Click To Edit Resuscitation Status Routine 10/17/18 16:53 Diabetes Education [RC] Click to Edit RT Aerosol Therapy [RC] ASDIRECTED 10/17/18 17:00 Enoxaparin [Lovenox] 30 mg SUBCUT Q24H Sodium Chloride 0.9% [Normal Saline] 1,000 ml IV ASDIRECTED 10/17/18 17:02 Isolation [COMM] Routine 10/17/18 18:00 Azithromycin [Zithromax] 500 mg Sodium Chloride 0.9% [Normal Saline] 250 ml IV Q24H 10/17/18 20:26 BIPAP [RT BiPAP/CPAP] [RC] ASDIRECTED 10/17/18 21:00 Insulin Aspart [NovoLOG] See Protocol SUBCUT QIDACANDBED 10/18/18 07:07 Admission Status [Patient Status] [ADT] Routine 10/18/18 09:00 Oseltamivir [Tamiflu] 75 mg PO DAILY - Plan Plan:: The patient is a 77-year-old gentleman who has influenza A with pneumonia as per chest x-ray. For now the patient with kept on high flow oxygen. This is to keep his saturations above 90%. The patient previously had been taking metformin and his hemoglobin A1c was at 6.2 indicating prediabetes. Regardless, the patient be kept on appropriate ADA diet while in hospital. Repeat laboratory studies have been ordered for the morning. The patient will be monitored by respiratory therapy and provided SVNs as necessary and also have his vital signs followed for signs of further respiratory distress the patient be placed back on BiPAP as necessary to ensure adequate oxygenation. A repeat blood gases been ordered. The patient will also be kept on Lovenox for DVT prophylaxis. He's been encouraged to ambulate.
--- NOTE | 2018-10-18 08:59 | CR ---
EXAMINATION: Portable chest radiograph. HISTORY: Hypoxia. FINDINGS: The image demonstrates moderate motion artifact. The trachea is midline. The cardiomediastinal silhouette is within normal limits. Mild bibasilar atelectasis and/or infiltrate. A trace left pleural effusion is not excluded. Osseous structures appear unremarkable. IMPRESSION: 1. Bibasilar atelectasis and/or infiltrate with likely a trace left pleural effusion.
[2018-10-18] MEDS: Oseltamivir 75 MG Cap PO SCH (09:37)
[2018-10-18] MEDS: Azithromycin 500 MG in Sodium Chloride 0.9% 250 ML IV SCH (18:01)
[2018-10-18] MEDS: oxyCODONE 5 MG Tab PO PRN (18:04)
[2018-10-18] MEDS: Enoxaparin 30 MG/0.3 ML Syringe SUBCUT SCH (18:04)
[2018-10-19] MEDS: oxyCODONE 5 MG Tab PO PRN (04:28)
[2018-10-19] MEDS: Insulin Aspart 100 Units/ML 3 ML Pen SUBCUT SCH ×4 (06:55→22:00)
[2018-10-19] MEDS: Oseltamivir 75 MG Cap PO SCH (08:37)
[2018-10-19] MEDS: Naproxen 500 MG Tab PO PRN ×2 (08:37→21:41)
--- NOTE | 2018-10-19 09:24 | PCM.PN ---
- General Info Date of Service: 10/19/18 Admission Dx/Problem (Free Text): Admission Diagnosis/Problem Admission Diagnosis/Problem Influenza Subjective Update: The patient is a 77-year-old gentleman who had been admitted through the emergency department on October 17, 2018 secondary to influenza A. The patient had been initially hypoxic however, he is improved today. The patient reports that he still has a nonproductive cough. He also admits to having pain in his back and lying in bed. The patient has been tolerating diet. The patient has no other complaints today. Functional Status: Reports: Pain Controlled, Tolerating Diet - Review of Systems General: Reports: Weakness, Fatigue HEENT: Reports: Sinus Congestion (Chronic) Pulmonary: Reports: Shortness of Breath, Wheezing Cardiovascular: Reports: No Symptoms Gastrointestinal: Reports: No Symptoms Genitourinary: Reports: No Symptoms Musculoskeletal: Reports: No Symptoms Skin: Reports: No Symptoms Neurological: Reports: No Symptoms Psychiatric: Reports: No Symptoms - Patient Data Vitals - Most Recent: Last Vital Signs Temp 37.3 C 10/19/18 08:00 Pulse 72 10/19/18 08:00 Resp 16 10/19/18 08:00 BP 143/72 H 10/19/18 08:00 Pulse Ox 91 L 10/19/18 08:00 Weight - Most Recent: 110.677 kg I&O - Last 24 Hours: Intake & Output 10/18/18 10/19/18 10/19/18 22:59 06:59 14:59 Intake Total 1524 979 Output Total 875 550 Balance 649 429 Lab Results Last 24 Hours: Laboratory Results - last 24 hr 10/18/18 10/18/18 10/18/18 Range/Units 06:31 12:02 12:02 ABG pH 7.309 L (7.35-7.45) ABG pCO2 71 H (35-45) mmHG ABG pO2 93 (75-100) mmHG ABG HCO3 36 H (22-26) mEq/L ABG Total CO2 32.3 ABG Base Excess 6.7 H (-2.0-2.0) POC Glucose 97 84 (60-110) mg/dL 10/18/18 10/18/18 10/19/18 Range/Units 15:49 21:07 06:42 ABG pH (7.35-7.45) ABG pCO2 (35-45) mmHG ABG pO2 (75-100) mmHG ABG HCO3 (22-26) mEq/L ABG Total CO2 ABG Base Excess (-2.0-2.0) POC Glucose 83 83 84 (60-110) mg/dL Med Orders - Current: Current Medications Acetaminophen (Tylenol) 650 mg PO Q4H PRN PRN Reason: Pain (Mild 1-3)/fever Albuterol/Ipratropium (Duoneb 3.0-0.5 Mg/3 Ml) 3 ml NEB Q4HRRT PRN PRN Reason: Shortness Of Breath/wheezing Last Admin: 10/18/18 06:20 Dose: 3 ml Allopurinol (Zyloprim) 300 mg PO BEDTIME [facility]NA[facility] Aspirin (Aspirin) 81 mg PO BEDTIME [facility]NA[facility] Atorvastatin Calcium (Lipitor) 20 mg PO BEDTIME [facility]NA[facility] Benazepril HCl (Lotensin) 40 mg PO BEDTIME [facility] Docusate Sodium (Colace) 100 mg PO BID PRN PRN Reason: Constipation Enoxaparin Sodium (Lovenox) 30 mg SUBCUT Q24H [facility] Last Admin: 10/18/18 18:04 Dose: 30 mg Gabapentin (Neurontin) 600 mg PO BEDTIME JANAE Hydrochlorothiazide (Hydrochlorothiazide) 25 mg PO BEDTIME [facility] Sodium Chloride (Normal Saline) 1,000 mls @ 75 mls/hr IV ASDIRECTED [facility] Last Admin: 10/18/18 21:58 Dose: 75 mls/hr Azithromycin 500 mg/ Sodium (Chloride) 250 mls @ 250 mls/hr IV Q24H [facility] Last Admin: 10/18/18 18:01 Dose: 250 mls/hr Insulin Aspart (Novolog) 0 unit SUBCUT QIDACANDBED [facility]; Protocol Last Admin: 10/19/18 06:55 Dose: Not Given Metformin HCl (Glucophage Xr) 500 mg PO BEDTIME [facility] Naproxen (Naprosyn) 500 mg PO BID PRN PRN Reason: Pain Last Admin: 10/19/18 08:37 Dose: 500 mg Ondansetron HCl (Zofran Odt) 4 mg PO Q4H PRN PRN Reason: nausea, able to take PO Oseltamivir Phosphate (Tamiflu) 75 mg PO DAILY [facility] Last Admin: 10/19/18 08:37 Dose: 75 mg Oxycodone HCl (Oxycodone) 5 mg PO Q4H PRN PRN Reason: Pain (moderate 4-6) Last Admin: 10/19/18 04:28 Dose: 5 mg Sodium Chloride (Saline Flush) 10 ml FLUSH ASDIRECTED PRN PRN Reason: Keep Vein Open Last Admin: 10/17/18 16:40 Dose: 10 ml Sodium Chloride (Saline Flush) 2.5 ml FLUSH ASDIRECTED PRN PRN Reason: Keep Vein Open Last Admin: 10/17/18 16:40 Dose: 2.5 ml Tamsulosin HCl (Flomax) 0.4 mg PO BEDTIME [facility]NAE Temazepam (Restoril) 15 mg PO BEDTIME PRN PRN Reason: Sleep Discontinued Medications Acetaminophen (Tylenol Extra Strength) 1,000 mg PO ONETIME ONE Stop: 10/17/18 16:35 Last Admin: 10/17/18 16:39 Dose: 1,000 mg Albuterol/Ipratropium (Duoneb 3.0-0.5 Mg/3 Ml) Confirm Administered Dose 3 ml .ROUTE .STK-MED ONE Stop: 10/17/18 15:11 Last Admin: 10/17/18 15:50 Dose: Not Given Albuterol/Ipratropium (Duoneb 3.0-0.5 Mg/3 Ml) 3 ml NEB ONETIME ONE Stop: 10/17/18 15:01 Last Admin: 10/17/18 15:51 Dose: 3 ml Azithromycin 500 mg/ Sodium (Chloride) 250 mls @ 250 mls/hr IV Q24H [facility] Last Admin: 10/17/18 18:08 Dose: Not Given Azithromycin 500 mg/ Sodium (Chloride) 250 mls @ 250 mls/hr IV Q24H [facility] Last Admin: 10/17/18 18:08 Dose: Not Given Azithromycin 500 mg/ Sodium (Chloride) 250 mls @ 250 mls/hr IV Q24H [facility] Insulin Aspart (Novolog) 0 unit SUBCUT ACBREAKFASTANDBED [facility]; Protocol Morphine Sulfate (Morphine) 2 mg IVPUSH Q2H PRN PRN Reason: Pain (severe 7-10) Stop: 10/18/18 16:50 Oseltamivir Phosphate (Tamiflu) 75 mg PO ONETIME ONE Stop: 10/17/18 16:33 Last Admin: 10/17/18 16:39 Dose: 75 mg - Exam Quality Assessment: Supplemental Oxygen General: Alert, Oriented, Cooperative, Mild Distress HEENT: Pupils Equal, Pupils Reactive Neck: Supple, Trachea Midline Lungs: Rales (Bibasilar). No: Normal Respiratory Effort (Shallow breathing) Cardiovascular: Regular Rate, Regular Rhythm GI/Abdominal Exam: Normal Bowel Sounds, Soft, Non-Tender, No Distention (Male) Exam: Deferred Back Exam: Normal Inspection (Appropriate for age) Extremities: Normal Inspection, No Pedal Edema Skin: Warm, Dry, Intact Neurological: No New Focal Deficit Psy/Mental Status: Alert, Normal Affect, Normal Mood - Problem List & Annotations (1) Acute respiratory failure SNOMED Code(s): 29447625 Code(s): J96.00 - ACUTE RESPIRATORY FAILURE, UNSP W HYPOXIA OR HYPERCAPNIA Status: Acute Priority: High Current Visit: Yes Qualifiers: Respiratory failure complication: hypoxia Qualified Code(s): J96.01 - Acute respiratory failure with hypoxia (2) Influenza A SNOMED Code(s): 093842568 Code(s): J10.1 - FLU DUE TO OTH IDENT INFLUENZA VIRUS W OTH RESP MANIFEST Status: Acute Priority: High Current Visit: Yes (3) BPH (benign prostatic hyperplasia) SNOMED Code(s): 000982019 Code(s): N40.0 - BENIGN PROSTATIC HYPERPLASIA WITHOUT LOWER URINRY TRACT SYMP Status: Chronic Priority: Medium Current Visit: Yes Qualifiers: Lower urinary tract symptom presence: symptoms present Lower urinary tract symptom detail: urinary hesitancy Qualified Code(s): N40.1 - Benign prostatic hyperplasia with lower urinary tract symptoms; R39.11 - Hesitancy of micturition (4) Dyslipidemia associated with type 2 diabetes mellitus SNOMED Code(s): 92385186 Code(s): E11.69 - TYPE 2 DIABETES MELLITUS WITH OTHER SPECIFIED COMPLICATION ; E78.5 - HYPERLIPIDEMIA, UNSPECIFIED Status: Resolved Priority: High Current Visit: Yes (5) Hypertension SNOMED Code(s): 75634362 Code(s): I10 - ESSENTIAL (PRIMARY) HYPERTENSION Status: Chronic Priority : High Current Visit: Yes Qualifiers: Hypertension type: essential hypertension Qualified Code(s): I10 - Essential (primary) hypertension (6) Obesity (BMI 30-39.9) SNOMED Code(s): 016451191, 030916933 Code(s): E66.9 - OBESITY, UNSPECIFIED Status: Chronic Priority: Medium Current Visit: Yes (7) Pre-diabetes SNOMED Code(s): 222149858 Code(s): R73.03 - PREDIABETES Status: Chronic Priority: Medium Current Visit: Yes - Problem List Review Problem List Initiated/Reviewed/Updated: Yes - My Orders Last 24 Hours: My Active Orders 10/18/18 09:00 Oseltamivir [Tamiflu] 75 mg PO DAILY 10/19/18 07:10 Naproxen [Naprosyn] 500 mg PO BID PRN 10/19/18 21:00 Allopurinol [Zyloprim] 300 mg PO BEDTIME Aspirin 81 mg PO BEDTIME Benazepril [Lotensin] 40 mg PO BEDTIME Gabapentin [Neurontin] 600 mg PO BEDTIME Tamsulosin [Flomax] 0.4 mg PO BEDTIME atorvaSTATin [Lipitor] 20 mg PO BEDTIME hydroCHLOROthiazide 25 mg PO BEDTIME metFORMIN [Glucophage XR] 500 mg PO BEDTIME - Plan Plan:: The patient is a 77-year-old gentleman who has influenza A with pneumonia as per chest x-ray. For now the patient with kept on high flow oxygen. This is to keep his saturations above 90%. The patient previously had been taking metformin and his hemoglobin A1c was at 6.2 indicating prediabetes. Regardless, the patient be kept on appropriate ADA diet while in hospital. Repeat laboratory studies have been ordered for the morning. The patient will be monitored by respiratory therapy and provided SVNs as necessary and also have his vital signs followed for signs of further respiratory distress the patient be placed back on BiPAP as necessary to ensure adequate oxygenation. A repeat blood gases been ordered. The patient will also be kept on Lovenox for DVT prophylaxis. He's been encouraged to ambulate. The patient is a 77-year-old gentleman who has influenza A with pneumonia. The patient's oxygenation has improved somewhat. He will be continued on oxygen support to help keep his saturations above 90%. The patient will also be kept on an ADA diet and Accu-Cheks. Patient has been encouraged to sit in chair. He also had been complaining of inability to sleep at night and temazepam 15 mg by mouth at bedtime as been ordered for him. The patient will also be kept on DVT prophylaxis with the use of Lovenox. PT OT has been ordered for the patient. Repeat laboratory testing is a been ordered. Patient should be appropriate for discharge in 1-2 days.
[2018-10-19 12:02] LABS: CHLORIDE,CL 101 mmol/L (98-107); SODIUM,NA 140 mmol/L (136-148)
[2018-10-19] MEDS: Sodium Chloride 0.9% 1,000 ML IV SCH (12:21)
[2018-10-19] MEDS: Enoxaparin 30 MG/0.3 ML Syringe SUBCUT SCH (17:11)
[2018-10-19] MEDS: Azithromycin 500 MG in Sodium Chloride 0.9% 250 ML IV SCH (17:42)
[2018-10-19] MEDS: Aspirin 81 MG Tab.Chew PO SCH (21:21)
[2018-10-19] MEDS: Gabapentin 300 MG Cap PO SCH (21:23)
[2018-10-19] MEDS: atorvaSTATin 20 MG Tab PO SCH (21:24)
[2018-10-19] MEDS: metFORMIN 500 MG Tab.ER PO SCH (21:24)
[2018-10-19] MEDS: Hydrochlorothiazide 12.5 MG Cap PO SCH (21:25)
[2018-10-19] MEDS: Allopurinol 300 MG Tab PO SCH (21:26)
[2018-10-19] MEDS: Benazepril 10 MG Tab PO SCH (21:30)
[2018-10-19] MEDS: Tamsulosin 0.4 MG Cap.ER PO SCH (21:34)
[2018-10-20] MEDS: Sodium Chloride 0.9% 1,000 ML IV SCH (03:01)
[2018-10-20] MEDS: Albuterol/Ipratropium 3.0-0.5 MG/3 ML Neb Soln NEB PRN ×3 (03:52→16:57)
[2018-10-20 05:15] LABS: CHLORIDE,CL 104 mmol/L (98-107); SODIUM,NA 141 mmol/L (136-148)
--- NOTE | 2018-10-20 08:28 | PCM.PN ---
- General Info Date of Service: 10/20/18 Admission Dx/Problem (Free Text): Admission Diagnosis/Problem Admission Diagnosis/Problem Influenza Subjective Update: The patient is a 78-year-old gentleman who was admitted to the emergency department due to influenza A. The patient has improved. He's been on Tamiflu. He has also been on Rocephin for concern for pneumonia. Patient says that he is tired. He is doing better and breathing better today. He has been setting up in a chair more. Functional Status: Reports: Pain Controlled, Tolerating Diet - Review of Systems General: Reports: Weakness, Fatigue HEENT: Reports: Sinus Congestion Pulmonary: Reports: Shortness of Breath, Wheezing Cardiovascular: Reports: No Symptoms Gastrointestinal: Reports: No Symptoms Genitourinary: Reports: No Symptoms Musculoskeletal: Reports: No Symptoms Skin: Reports: No Symptoms Neurological: Reports: No Symptoms Psychiatric: Reports: No Symptoms - Patient Data Vitals - Most Recent: Last Vital Signs Temp 36.9 C 10/20/18 04:00 Pulse 77 10/20/18 04:00 Resp 16 10/20/18 04:00 BP 128/70 10/20/18 04:00 Pulse Ox 90 L 10/20/18 04:00 Weight - Most Recent: 110.677 kg I&O - Last 24 Hours: Intake & Output 10/19/18 10/20/18 10/20/18 22:59 06:59 14:59 Intake Total 250 718 Output Total 380 Balance 250 338 Lab Results Last 24 Hours: Laboratory Results - last 24 hr 10/19/18 10/19/18 10/19/18 Range/Units 10:45 10:45 11:33 WBC 4.67 (4.0-11.0) K/uL RBC 4.52 (4.50-5.90) M/uL Hgb 13.4 (13.0-17.0) g/dL Hct 43.7 (38.0-50.0) % MCV 96.7 (80.0-98.0) fL MCH 29.6 (27.0-32.0) pg MCHC 30.7 L (31.0-37.0) g/dL RDW Std Deviation 56.2 (28.0-62.0) fl RDW Coeff of Edson 16 H (11.0-15.0) % Plt Count 119 L (150-400) K/uL MPV 10.70 (7.40-12.00) fL Neut % (Auto) 50.8 (48.0-80.0) % Lymph % (Auto) 35.3 (16.0-40.0) % [place] % (Auto) 13.3 (0.0-15.0) % Eos % (Auto) 0.4 (0.0-7.0) % Baso % (Auto) 0.2 (0.0-1.5) % Neut # (Auto) 2.4 (1.4-5.7) K/uL Lymph # (Auto) 1.7 (0.6-2.4) K/uL [place] # (Auto) 0.6 (0.0-0.8) K/uL Eos # (Auto) 0.0 (0.0-0.7) K/uL Baso # (Auto) 0.0 (0.0-0.1) K/uL Add Manual Diff Neutrophils % (Manual) (48.0-80.0) % Band Neutrophils % % Lymphocytes % (Manual) (16.0-40.0) % Monocytes % (Manual) (0.0-15.0) % Eosinophils % (Manual) (0.0-7.0) % Nucleated RBC % 0.0 /100WBC Absolute Seg Neuts (1.4-5.7) Band Neutrophils # Lymphocytes # (Manual) (0.6-2.4) Monocytes # (Manual) (0.0-0.8) Eosinophils # (Manual) (0.0-0.7) Nucleated RBCs # 0 K/uL Sodium 140 (136-148) mmol/L Potassium 4.0 (3.5-5.1) mmol/L Chloride 101 (98-107) mmol/L Carbon Dioxide 33.5 H (21.0-32.0) mmol/L BUN 21 H (7.0-18.0) mg/dL Creatinine 1.1 (0.8-1.3) mg/dL Est Cr Clr Drug Dosing 57.13 mL/min Estimated GFR (MDRD) > 60.0 ml/min Glucose 143 H (74-106) mg/dL POC Glucose 131 H (60-110) mg/dL Calcium 9.2 (8.5-10.1) mg/dL 10/19/18 10/19/18 10/20/18 Range/Units 17:17 21:52 04:44 WBC 5.15 (4.0-11.0) K/uL RBC 4.56 (4.50-5.90) M/uL Hgb 13.3 (13.0-17.0) g/dL Hct 44.3 (38.0-50.0) % MCV 97.1 (80.0-98.0) fL MCH 29.2 (27.0-32.0) pg MCHC 30.0 L (31.0-37.0) g/dL RDW Std Deviation 57.0 (28.0-62.0) fl RDW Coeff of Edson 16 H (11.0-15.0) % Plt Count 127 L (150-400) K/uL MPV 10.40 (7.40-12.00) fL Neut % (Auto) (48.0-80.0) % Lymph % (Auto) (16.0-40.0) % [place] % (Auto) (0.0-15.0) % Eos % (Auto) (0.0-7.0) % Baso % (Auto) (0.0-1.5) % Neut # (Auto) (1.4-5.7) K/uL Lymph # (Auto) (0.6-2.4) K/uL [place] # (Auto) (0.0-0.8) K/uL Eos # (Auto) (0.0-0.7) K/uL Baso # (Auto) (0.0-0.1) K/uL Add Manual Diff YES Neutrophils % (Manual) 38 L (48.0-80.0) % Band Neutrophils % 5 % Lymphocytes % (Manual) 42 H (16.0-40.0) % Monocytes % (Manual) 12 (0.0-15.0) % Eosinophils % (Manual) 3 (0.0-7.0) % Nucleated RBC % 0.0 /100WBC Absolute Seg Neuts 2.0 (1.4-5.7) Band Neutrophils # 0.3 Lymphocytes # (Manual) 2.2 (0.6-2.4) Monocytes # (Manual) 0.6 (0.0-0.8) Eosinophils # (Manual) 0.2 (0.0-0.7) Nucleated RBCs # 0 K/uL Sodium (136-148) mmol/L Potassium (3.5-5.1) mmol/L Chloride (98-107) mmol/L Carbon Dioxide (21.0-32.0) mmol/L BUN (7.0-18.0) mg/dL Creatinine (0.8-1.3) mg/dL Est Cr Clr Drug Dosing mL/min Estimated GFR (MDRD) ml/min Glucose (74-106) mg/dL POC Glucose 143 H 155 H (60-110) mg/dL Calcium (8.5-10.1) mg/dL 10/20/18 10/20/18 Range/Units 04:44 07:03 WBC (4.0-11.0) K/uL RBC (4.50-5.90) M/uL Hgb (13.0-17.0) g/dL Hct (38.0-50.0) % MCV (80.0-98.0) fL MCH (27.0-32.0) pg MCHC (31.0-37.0) g/dL RDW Std Deviation (28.0-62.0) fl RDW Coeff of Edson (11.0-15.0) % Plt Count (150-400) K/uL MPV (7.40-12.00) fL Neut % (Auto) (48.0-80.0) % Lymph % (Auto) (16.0-40.0) % [place] % (Auto) (0.0-15.0) % Eos % (Auto) (0.0-7.0) % Baso % (Auto) (0.0-1.5) % Neut # (Auto) (1.4-5.7) K/uL Lymph # (Auto) (0.6-2.4) K/uL [place] # (Auto) (0.0-0.8) K/uL Eos # (Auto) (0.0-0.7) K/uL Baso # (Auto) (0.0-0.1) K/uL Add Manual Diff Neutrophils % (Manual) (48.0-80.0) % Band Neutrophils % % Lymphocytes % (Manual) (16.0-40.0) % Monocytes % (Manual) (0.0-15.0) % Eosinophils % (Manual) (0.0-7.0) % Nucleated RBC % /100WBC Absolute Seg Neuts (1.4-5.7) Band Neutrophils # Lymphocytes # (Manual) (0.6-2.4) Monocytes # (Manual) (0.0-0.8) Eosinophils # (Manual) (0.0-0.7) Nucleated RBCs # K/uL Sodium 141 (136-148) mmol/L Potassium 4.3 (3.5-5.1) mmol/L Chloride 104 (98-107) mmol/L Carbon Dioxide 35.3 H (21.0-32.0) mmol/L BUN 20 H (7.0-18.0) mg/dL Creatinine 1.1 (0.8-1.3) mg/dL Est Cr Clr Drug Dosing 57.13 mL/min Estimated GFR (MDRD) > 60.0 ml/min Glucose 102 (74-106) mg/dL POC Glucose 101 (60-110) mg/dL Calcium 8.8 (8.5-10.1) mg/dL Sammy Results Last 24 Hours: Microbiology 10/17/18 15:27 Quick Strep Confirmation Culture - Final Throat NO GROUP A STREP ISOLATED Group A Streptococcus Rapid Screen - Final NEGATIVE STREP A SCREEN Med Orders - Current: Current Medications Acetaminophen (Tylenol) 650 mg PO Q4H PRN PRN Reason: Pain (Mild 1-3)/fever Last Admin: 10/20/18 04:30 Dose: 650 mg Albuterol/Ipratropium (Duoneb 3.0-0.5 Mg/3 Ml) 3 ml NEB Q4HRRT PRN PRN Reason: Shortness Of Breath/wheezing Last Admin: 10/20/18 03:52 Dose: 3 ml Allopurinol (Zyloprim) 300 mg PO BEDTIME JANAE Last Admin: 10/19/18 21:26 Dose: 300 mg Aspirin (Aspirin) 81 mg PO BEDTIME [facility]NAE Last Admin: 10/19/18 21:21 Dose: 81 mg Atorvastatin Calcium (Lipitor) 20 mg PO BEDTIME [facility] Last Admin: 10/19/18 21:24 Dose: 20 mg Benazepril HCl (Lotensin) 40 mg PO BEDTIME [facility] Last Admin: 10/19/18 21:30 Dose: 40 mg Docusate Sodium (Colace) 100 mg PO BID PRN PRN Reason: Constipation Enoxaparin Sodium (Lovenox) 30 mg SUBCUT Q24H [facility] Last Admin: 10/19/18 17:11 Dose: 30 mg Gabapentin (Neurontin) 600 mg PO BEDTIME [facility] Last Admin: 10/19/18 21:23 Dose: 600 mg Hydrochlorothiazide (Hydrochlorothiazide) 25 mg PO BEDTIME [facility] Last Admin: 10/19/18 21:25 Dose: 25 mg Sodium Chloride (Normal Saline) 1,000 mls @ 75 mls/hr IV ASDIRECTED [facility] Last Admin: 10/20/18 03:01 Dose: 75 mls/hr Azithromycin 500 mg/ Sodium (Chloride) 250 mls @ 250 mls/hr IV Q24H [facility] Last Admin: 10/19/18 17:42 Dose: 250 mls/hr Insulin Aspart (Novolog) 0 unit SUBCUT QIDACANDBED [facility]; Protocol Last Admin: 10/19/18 22:00 Dose: Not Given Metformin HCl (Glucophage Xr) 500 mg PO BEDTIME [facility] Last Admin: 10/19/18 21:24 Dose: 500 mg Naproxen (Naprosyn) 500 mg PO BID PRN PRN Reason: Pain Last Admin: 10/19/18 21:41 Dose: 500 mg Ondansetron HCl (Zofran Odt) 4 mg PO Q4H PRN PRN Reason: nausea, able to take PO Oseltamivir Phosphate (Tamiflu) 75 mg PO DAILY [facility] Last Admin: 10/19/18 08:37 Dose: 75 mg Oxycodone HCl (Oxycodone) 5 mg PO Q4H PRN PRN Reason: Pain (moderate 4-6) Last Admin: 10/19/18 04:28 Dose: 5 mg Sodium Chloride (Saline Flush) 10 ml FLUSH ASDIRECTED PRN PRN Reason: Keep Vein Open Last Admin: 10/17/18 16:40 Dose: 10 ml Sodium Chloride (Saline Flush) 2.5 ml FLUSH ASDIRECTED PRN PRN Reason: Keep Vein Open Last Admin: 10/17/18 16:40 Dose: 2.5 ml Tamsulosin HCl (Flomax) 0.4 mg PO BEDTIME [facility] Last Admin: 10/19/18 21:34 Dose: 0.4 mg Temazepam (Restoril) 15 mg PO BEDTIME PRN PRN Reason: Sleep Discontinued Medications Acetaminophen (Tylenol Extra Strength) 1,000 mg PO ONETIME ONE Stop: 10/17/18 16:35 Last Admin: 10/17/18 16:39 Dose: 1,000 mg Albuterol/Ipratropium (Duoneb 3.0-0.5 Mg/3 Ml) Confirm Administered Dose 3 ml .ROUTE .STK-MED ONE Stop: 10/17/18 15:11 Last Admin: 10/17/18 15:50 Dose: Not Given Albuterol/Ipratropium (Duoneb 3.0-0.5 Mg/3 Ml) 3 ml NEB ONETIME ONE Stop: 10/17/18 15:01 Last Admin: 10/17/18 15:51 Dose: 3 ml Azithromycin 500 mg/ Sodium (Chloride) 250 mls @ 250 mls/hr IV Q24H [facility] Last Admin: 10/17/18 18:08 Dose: Not Given Azithromycin 500 mg/ Sodium (Chloride) 250 mls @ 250 mls/hr IV Q24H [facility] Last Admin: 10/17/18 18:08 Dose: Not Given Azithromycin 500 mg/ Sodium (Chloride) 250 mls @ 250 mls/hr IV Q24H [facility] Insulin Aspart (Novolog) 0 unit SUBCUT ACBREAKFASTANDBED [facility]; Protocol Morphine Sulfate (Morphine) 2 mg IVPUSH Q2H PRN PRN Reason: Pain (severe 7-10) Stop: 10/18/18 16:50 Oseltamivir Phosphate (Tamiflu) 75 mg PO ONETIME ONE Stop: 10/17/18 16:33 Last Admin: 10/17/18 16:39 Dose: 75 mg - Exam Quality Assessment: Supplemental Oxygen General: Alert, Oriented, Cooperative, No Acute Distress HEENT: Pupils Equal, Pupils Reactive, EOMI. No: Mucous Membr. Moist/[place] (Dry) Neck: Supple, Trachea Midline Lungs: Clear to Auscultation, Normal Respiratory Effort Cardiovascular: Regular Rate, Regular Rhythm GI/Abdominal Exam: Normal Bowel Sounds, Soft, Non-Tender, No Distention (Male) Exam: Deferred Back Exam: Normal Inspection, Full Range of Motion Extremities: Normal Inspection, Normal Range of Motion, No Pedal Edema Skin: Warm, Dry, Intact Neurological: No New Focal Deficit Psy/Mental Status: Alert, Normal Affect, Normal Mood - Problem List & Annotations (1) Acute respiratory failure SNOMED Code(s): 67547770 Code(s): J96.00 - ACUTE RESPIRATORY FAILURE, UNSP W HYPOXIA OR HYPERCAPNIA Status: Acute Priority: High Current Visit: Yes Qualifiers: Respiratory failure complication: hypoxia Qualified Code(s): J96.01 - Acute respiratory failure with hypoxia Annotation/Comment:: Improved (2) Influenza A SNOMED Code(s): 603722787 Code(s): J10.1 - FLU DUE TO OTH IDENT INFLUENZA VIRUS W OTH RESP MANIFEST Status: Acute Priority: High Current Visit: Yes (3) BPH (benign prostatic hyperplasia) SNOMED Code(s): 884180354 Code(s): N40.0 - BENIGN PROSTATIC HYPERPLASIA WITHOUT LOWER URINRY TRACT SYMP Status: Chronic Priority: Medium Current Visit: Yes Qualifiers: Lower urinary tract symptom presence: symptoms present Lower urinary tract symptom detail: urinary hesitancy Qualified Code(s): N40.1 - Benign prostatic hyperplasia with lower urinary tract symptoms; R39.11 - Hesitancy of micturition (4) Dyslipidemia associated with type 2 diabetes mellitus SNOMED Code(s): 70077022 Code(s): E11.69 - TYPE 2 DIABETES MELLITUS WITH OTHER SPECIFIED COMPLICATION ; E78.5 - HYPERLIPIDEMIA, UNSPECIFIED Status: Resolved Priority: High Current Visit: Yes (5) Hypertension SNOMED Code(s): 04520374 Code(s): I10 - ESSENTIAL (PRIMARY) HYPERTENSION Status: Chronic Priority : High Current Visit: Yes Qualifiers: Hypertension type: essential hypertension Qualified Code(s): I10 - Essential (primary) hypertension (6) Obesity (BMI 30-39.9) SNOMED Code(s): 242708673, 522916164 Code(s): E66.9 - OBESITY, UNSPECIFIED Status: Chronic Priority: Medium Current Visit: Yes (7) Pre-diabetes SNOMED Code(s): 529096806 Code(s): R73.03 - PREDIABETES Status: Chronic Priority: Medium Current Visit: Yes - Problem List Review Problem List Initiated/Reviewed/Updated: Yes - My Orders Last 24 Hours: My Active Orders 10/19/18 10:45 Consult to Physical Therapy [PT Evaluation and Treatment] [CONS] Routine OT Evaluation and Treatment [CONS] Routine 10/19/18 21:00 Allopurinol [Zyloprim] 300 mg PO BEDTIME Aspirin 81 mg PO BEDTIME Benazepril [Lotensin] 40 mg PO BEDTIME Gabapentin [Neurontin] 600 mg PO BEDTIME Tamsulosin [Flomax] 0.4 mg PO BEDTIME atorvaSTATin [Lipitor] 20 mg PO BEDTIME hydroCHLOROthiazide 25 mg PO BEDTIME metFORMIN [Glucophage XR] 500 mg PO BEDTIME - Plan Plan:: The patient is a 77-year-old gentleman who has influenza A with pneumonia as per chest x-ray. For now the patient with kept on high flow oxygen. This is to keep his saturations above 90%. The patient previously had been taking metformin and his hemoglobin A1c was at 6.2 indicating prediabetes. Regardless, the patient be kept on appropriate ADA diet while in hospital. Repeat laboratory studies have been ordered for the morning. The patient will be monitored by respiratory therapy and provided SVNs as necessary and also have his vital signs followed for signs of further respiratory distress the patient be placed back on BiPAP as necessary to ensure adequate oxygenation. A repeat blood gases been ordered. The patient will also be kept on Lovenox for DVT prophylaxis. He's been encouraged to ambulate. The patient is a 77-year-old gentleman who has influenza A with pneumonia. The patient's oxygenation has improved somewhat. He will be continued on oxygen support to help keep his saturations above 90%. The patient will also be kept on an ADA diet and Accu-Cheks. Patient has been encouraged to sit in chair. He also had been complaining of inability to sleep at night and temazepam 15 mg by mouth at bedtime as been ordered for him. The patient will also be kept on DVT prophylaxis with the use of Lovenox. PT OT has been ordered for the patient. Repeat laboratory testing is a been ordered. Patient should be appropriate for discharge in 1-2 days. The patient is a 78-year-old gentleman who had been previously diagnosed by laboratory standard of influenza A. His oxygenation has improved. Overall the patient has improved and will continue on his current antibiotics. We'll continue the Tamiflu for now. He is also on oxygen support to keep his saturation above 90%. The patient has had temazepam to help with his sleep and this is improved somewhat. He'll also be kept on Lovenox for DVT prophylaxis. PT OT will be following patient. Repeat laboratory studies a been ordered. He should be appropriate for discharge once his oxygen demands have improved and he is able to adequately care for himself.
[2018-10-20] MEDS: Insulin Aspart 100 Units/ML 3 ML Pen SUBCUT SCH ×4 (08:30→21:13)
[2018-10-20] MEDS: Oseltamivir 75 MG Cap PO SCH (09:13)
[2018-10-20] MEDS: Enoxaparin 30 MG/0.3 ML Syringe SUBCUT SCH (16:57)
[2018-10-20] MEDS: Azithromycin 500 MG in Sodium Chloride 0.9% 250 ML IV SCH (17:04)
[2018-10-20] MEDS: Tamsulosin 0.4 MG Cap.ER PO SCH (21:08)
[2018-10-20] MEDS: Aspirin 81 MG Tab.Chew PO SCH (21:09)
[2018-10-20] MEDS: metFORMIN 500 MG Tab.ER PO SCH (21:09)
[2018-10-20] MEDS: atorvaSTATin 20 MG Tab PO SCH (21:09)
[2018-10-20] MEDS: Allopurinol 300 MG Tab PO SCH (21:10)
[2018-10-20] MEDS: Hydrochlorothiazide 12.5 MG Cap PO SCH (21:11)
[2018-10-20] MEDS: Gabapentin 300 MG Cap PO SCH (21:12)
[2018-10-20] MEDS: Benazepril 10 MG Tab PO SCH (21:12)
[2018-10-20] MEDS: Naproxen 500 MG Tab PO PRN (22:58)
[2018-10-21] MEDS: Insulin Aspart 100 Units/ML 3 ML Pen SUBCUT SCH ×4 (06:35→20:43)
[2018-10-21 08:01] LABS: CHLORIDE,CL 103 mmol/L (98-107); SODIUM,NA 141 mmol/L (136-148)
[2018-10-21] MEDS: Oseltamivir 75 MG Cap PO SCH (08:32)
--- NOTE | 2018-10-21 11:08 | PCM.PN ---
- General Info Date of Service: 10/21/18 Admission Dx/Problem (Free Text): Admission Diagnosis/Problem Admission Diagnosis/Problem Influenza Subjective Update: The patient is a 77-year-old gentleman who had been admitted to acute hospitalization on October 17, 2018. He was diagnosed with influenza A and is also being treated for pneumonia. Today the patient says that he has not been sleeping very well. He's had some nasal congestion which is chronic for him. Patient says that he still somewhat short of breath. Still on oxygen. He has denied any additional pain. Functional Status: Reports: Pain Controlled, Tolerating Diet - Review of Systems General: Reports: Weakness, Fatigue HEENT: Reports: No Symptoms Pulmonary: Reports: Cough Cardiovascular: Reports: No Symptoms Gastrointestinal: Reports: No Symptoms Genitourinary: Reports: No Symptoms Musculoskeletal: Reports: No Symptoms Skin: Reports: No Symptoms Neurological: Reports: No Symptoms Psychiatric: Reports: No Symptoms - Patient Data Vitals - Most Recent: Last Vital Signs Temp 36.3 C 10/21/18 08:00 Pulse 68 10/21/18 08:00 Resp 18 10/21/18 08:00 BP 136/66 10/21/18 08:00 Pulse Ox 92 L 10/21/18 08:00 Weight - Most Recent: 110.677 kg I&O - Last 24 Hours: Intake & Output 10/20/18 10/21/18 10/21/18 22:59 06:59 14:59 Intake Total 400 100 Output Total 300 Balance 100 100 Lab Results Last 24 Hours: Laboratory Results - last 24 hr 10/20/18 10/20/18 10/20/18 Range/Units 11:44 16:49 20:55 WBC (4.0-11.0) K/uL RBC (4.50-5.90) M/uL Hgb (13.0-17.0) g/dL Hct (38.0-50.0) % MCV (80.0-98.0) fL MCH (27.0-32.0) pg MCHC (31.0-37.0) g/dL RDW Std Deviation (28.0-62.0) fl RDW Coeff of Edson (11.0-15.0) % Plt Count (150-400) K/uL MPV (7.40-12.00) fL Neut % (Auto) (48.0-80.0) % Lymph % (Auto) (16.0-40.0) % [place] % (Auto) (0.0-15.0) % Eos % (Auto) (0.0-7.0) % Baso % (Auto) (0.0-1.5) % Neut # (Auto) (1.4-5.7) K/uL Lymph # (Auto) (0.6-2.4) K/uL [place] # (Auto) (0.0-0.8) K/uL Eos # (Auto) (0.0-0.7) K/uL Baso # (Auto) (0.0-0.1) K/uL Nucleated RBC % /100WBC Nucleated RBCs # K/uL Sodium (136-148) mmol/L Potassium (3.5-5.1) mmol/L Chloride (98-107) mmol/L Carbon Dioxide (21.0-32.0) mmol/L BUN (7.0-18.0) mg/dL Creatinine (0.8-1.3) mg/dL Est Cr Clr Drug Dosing mL/min Estimated GFR (MDRD) ml/min Glucose (74-106) mg/dL POC Glucose 97 141 H 80 (60-110) mg/dL Calcium (8.5-10.1) mg/dL 10/21/18 10/21/18 Range/Units 07:40 07:40 WBC 5.42 (4.0-11.0) K/uL RBC 4.50 (4.50-5.90) M/uL Hgb 13.4 (13.0-17.0) g/dL Hct 43.6 (38.0-50.0) % MCV 96.9 (80.0-98.0) fL MCH 29.8 (27.0-32.0) pg MCHC 30.7 L (31.0-37.0) g/dL RDW Std Deviation 55.5 (28.0-62.0) fl RDW Coeff of Edson 16 H (11.0-15.0) % Plt Count 105 L (150-400) K/uL MPV 10.40 (7.40-12.00) fL Neut % (Auto) 50.2 (48.0-80.0) % Lymph % (Auto) 34.3 (16.0-40.0) % [place] % (Auto) 12.5 (0.0-15.0) % Eos % (Auto) 2.8 (0.0-7.0) % Baso % (Auto) 0.2 (0.0-1.5) % Neut # (Auto) 2.7 (1.4-5.7) K/uL Lymph # (Auto) 1.9 (0.6-2.4) K/uL [place] # (Auto) 0.7 (0.0-0.8) K/uL Eos # (Auto) 0.2 (0.0-0.7) K/uL Baso # (Auto) 0.0 (0.0-0.1) K/uL Nucleated RBC % 0.0 /100WBC Nucleated RBCs # 0 K/uL Sodium 141 (136-148) mmol/L Potassium 4.6 (3.5-5.1) mmol/L Chloride 103 (98-107) mmol/L Carbon Dioxide 37.8 H (21.0-32.0) mmol/L BUN 19 H (7.0-18.0) mg/dL Creatinine 1.1 (0.8-1.3) mg/dL Est Cr Clr Drug Dosing 57.13 mL/min Estimated GFR (MDRD) > 60.0 ml/min Glucose 102 (74-106) mg/dL POC Glucose (60-110) mg/dL Calcium 9.0 (8.5-10.1) mg/dL Med Orders - Current: Current Medications Acetaminophen (Tylenol) 650 mg PO Q4H PRN PRN Reason: Pain (Mild 1-3)/fever Last Admin: 10/20/18 04:30 Dose: 650 mg Albuterol/Ipratropium (Duoneb 3.0-0.5 Mg/3 Ml) 3 ml NEB Q4HRRT PRN PRN Reason: Shortness Of Breath/wheezing Last Admin: 10/20/18 16:57 Dose: 3 ml Allopurinol (Zyloprim) 300 mg PO BEDTIME [facility] Last Admin: 10/20/18 21:10 Dose: 300 mg Aspirin (Aspirin) 81 mg PO BEDTIME [facility] Last Admin: 10/20/18 21:09 Dose: 81 mg Atorvastatin Calcium (Lipitor) 20 mg PO BEDTIME [facility] Last Admin: 10/20/18 21:09 Dose: 20 mg Benazepril HCl (Lotensin) 40 mg PO BEDTIME [facility] Last Admin: 10/20/18 21:12 Dose: 40 mg Docusate Sodium (Colace) 100 mg PO BID PRN PRN Reason: Constipation Enoxaparin Sodium (Lovenox) 30 mg SUBCUT Q24H [facility] Last Admin: 10/20/18 16:57 Dose: 30 mg Gabapentin (Neurontin) 600 mg PO BEDTIME [facility] Last Admin: 10/20/18 21:12 Dose: 600 mg Hydrochlorothiazide (Hydrochlorothiazide) 25 mg PO BEDTIME [facility] Last Admin: 10/20/18 21:11 Dose: 25 mg Azithromycin 500 mg/ Sodium (Chloride) 250 mls @ 250 mls/hr IV Q24H [facility] Last Admin: 10/20/18 17:04 Dose: 250 mls/hr Insulin Aspart (Novolog) 0 unit SUBCUT QIDACANDBED [facility]; Protocol Last Admin: 10/21/18 06:35 Dose: Not Given Metformin HCl (Glucophage Xr) 500 mg PO BEDTIME [facility] Last Admin: 10/20/18 21:09 Dose: 500 mg Naproxen (Naprosyn) 500 mg PO BID PRN PRN Reason: Pain Last Admin: 10/20/18 22:58 Dose: 500 mg Ondansetron HCl (Zofran Odt) 4 mg PO Q4H PRN PRN Reason: nausea, able to take PO Oseltamivir Phosphate (Tamiflu) 75 mg PO DAILY [facility] Last Admin: 10/21/18 08:32 Dose: 75 mg Oxycodone HCl (Oxycodone) 5 mg PO Q4H PRN PRN Reason: Pain (moderate 4-6) Last Admin: 10/19/18 04:28 Dose: 5 mg Sodium Chloride (Saline Flush) 10 ml FLUSH ASDIRECTED PRN PRN Reason: Keep Vein Open Last Admin: 10/17/18 16:40 Dose: 10 ml Sodium Chloride (Saline Flush) 2.5 ml FLUSH ASDIRECTED PRN PRN Reason: Keep Vein Open Last Admin: 10/17/18 16:40 Dose: 2.5 ml Tamsulosin HCl (Flomax) 0.4 mg PO BEDTIME [facility] Last Admin: 10/20/18 21:08 Dose: 0.4 mg Temazepam (Restoril) 15 mg PO BEDTIME PRN PRN Reason: Sleep Discontinued Medications Acetaminophen (Tylenol Extra Strength) 1,000 mg PO ONETIME ONE Stop: 10/17/18 16:35 Last Admin: 10/17/18 16:39 Dose: 1,000 mg Albuterol/Ipratropium (Duoneb 3.0-0.5 Mg/3 Ml) Confirm Administered Dose 3 ml .ROUTE .STK-MED ONE Stop: 10/17/18 15:11 Last Admin: 10/17/18 15:50 Dose: Not Given Albuterol/Ipratropium (Duoneb 3.0-0.5 Mg/3 Ml) 3 ml NEB ONETIME ONE Stop: 10/17/18 15:01 Last Admin: 10/17/18 15:51 Dose: 3 ml Sodium Chloride (Normal Saline) 1,000 mls @ 75 mls/hr IV ASDIRECTED [facility] Last Admin: 10/20/18 03:01 Dose: 75 mls/hr Azithromycin 500 mg/ Sodium (Chloride) 250 mls @ 250 mls/hr IV Q24H [facility] Last Admin: 10/17/18 18:08 Dose: Not Given Azithromycin 500 mg/ Sodium (Chloride) 250 mls @ 250 mls/hr IV Q24H [facility] Last Admin: 10/17/18 18:08 Dose: Not Given Azithromycin 500 mg/ Sodium (Chloride) 250 mls @ 250 mls/hr IV Q24H [facility] Insulin Aspart (Novolog) 0 unit SUBCUT ACBREAKFASTANDBED [facility]; Protocol Morphine Sulfate (Morphine) 2 mg IVPUSH Q2H PRN PRN Reason: Pain (severe 7-10) Stop: 10/18/18 16:50 Oseltamivir Phosphate (Tamiflu) 75 mg PO ONETIME ONE Stop: 10/17/18 16:33 Last Admin: 10/17/18 16:39 Dose: 75 mg - Exam Quality Assessment: Supplemental Oxygen General: Alert, Oriented, Cooperative, No Acute Distress HEENT: Pupils Equal, Pupils Reactive, EOMI. No: Mucous Membr. Moist/[place] ( Currently) Neck: Supple, Trachea Midline Lungs: Clear to Auscultation, Normal Respiratory Effort Cardiovascular: Regular Rate, Regular Rhythm GI/Abdominal Exam: Normal Bowel Sounds, Soft, No Distention (Male) Exam: Deferred Back Exam: Normal Inspection (Age-appropriate), Full Range of Motion Extremities: Normal Inspection, No Pedal Edema Skin: Warm, Dry, Intact Neurological: No New Focal Deficit Psy/Mental Status: Alert, Normal Affect, Normal Mood - Problem List & Annotations (1) Acute respiratory failure SNOMED Code(s): 78467030 Code(s): J96.00 - ACUTE RESPIRATORY FAILURE, UNSP W HYPOXIA OR HYPERCAPNIA Status: Acute Priority: High Current Visit: Yes Qualifiers: Respiratory failure complication: hypoxia Qualified Code(s): J96.01 - Acute respiratory failure with hypoxia Annotation/Comment:: Improved (2) Influenza A SNOMED Code(s): 803757066 Code(s): J10.1 - FLU DUE TO OTH IDENT INFLUENZA VIRUS W OTH RESP MANIFEST Status: Acute Priority: High Current Visit: Yes (3) BPH (benign prostatic hyperplasia) SNOMED Code(s): 252397098 Code(s): N40.0 - BENIGN PROSTATIC HYPERPLASIA WITHOUT LOWER URINRY TRACT SYMP Status: Chronic Priority: Medium Current Visit: Yes Qualifiers: Lower urinary tract symptom presence: symptoms present Lower urinary tract symptom detail: urinary hesitancy Qualified Code(s): N40.1 - Benign prostatic hyperplasia with lower urinary tract symptoms; R39.11 - Hesitancy of micturition (4) Dyslipidemia associated with type 2 diabetes mellitus SNOMED Code(s): 23707279 Code(s): E11.69 - TYPE 2 DIABETES MELLITUS WITH OTHER SPECIFIED COMPLICATION ; E78.5 - HYPERLIPIDEMIA, UNSPECIFIED Status: Resolved Priority: High Current Visit: Yes (5) Hypertension SNOMED Code(s): 14956951 Code(s): I10 - ESSENTIAL (PRIMARY) HYPERTENSION Status: Chronic Priority : High Current Visit: Yes Qualifiers: Hypertension type: essential hypertension Qualified Code(s): I10 - Essential (primary) hypertension (6) Obesity (BMI 30-39.9) SNOMED Code(s): 652667222, 546851667 Code(s): E66.9 - OBESITY, UNSPECIFIED Status: Chronic Priority: Medium Current Visit: Yes (7) Pre-diabetes SNOMED Code(s): 030239295 Code(s): R73.03 - PREDIABETES Status: Chronic Priority: Medium Current Visit: Yes - Problem List Review Problem List Initiated/Reviewed/Updated: Yes - Plan Plan:: The patient is a 78-year-old gentleman who is doing better today. He had been diagnosed originally upon admission with influenza A. Since that time the patient has been on Tamiflu. This will be discontinued. I've also ordered repeat laboratories on with a chest x-ray in the morning. It may be necessary or appropriate to discontinue his antibiotics. Cultures thus far are negative. The patient will be continued on temazepam to help in to sleep. He also be kept on Lovenox for DVT prophylaxis. PT OT is also following patient and this will continue.
[2018-10-21] MEDS: Enoxaparin 30 MG/0.3 ML Syringe SUBCUT SCH (17:40)
[2018-10-21] MEDS: Azithromycin 500 MG in Sodium Chloride 0.9% 250 ML IV SCH (17:40)
[2018-10-21] MEDS: Aspirin 81 MG Tab.Chew PO SCH (20:33)
[2018-10-21] MEDS: Tamsulosin 0.4 MG Cap.ER PO SCH (20:36)
[2018-10-21] MEDS: Allopurinol 300 MG Tab PO SCH (20:36)
[2018-10-21] MEDS: atorvaSTATin 20 MG Tab PO SCH (20:36)
[2018-10-21] MEDS: Gabapentin 300 MG Cap PO SCH (20:36)
[2018-10-21] MEDS: Hydrochlorothiazide 12.5 MG Cap PO SCH (20:38)
[2018-10-21] MEDS: Benazepril 10 MG Tab PO SCH (20:43)
[2018-10-21] MEDS: metFORMIN 500 MG Tab.ER PO SCH (20:45)
[2018-10-22 06:09] LABS: CHLORIDE,CL 104 mmol/L (98-107); SODIUM,NA 141 mmol/L (136-148)
[2018-10-22] MEDS: Insulin Aspart 100 Units/ML 3 ML Pen SUBCUT SCH ×4 (07:05→20:59)
--- NOTE | 2018-10-22 08:47 | PCM.PN ---
- General Info Date of Service: 10/22/18 Admission Dx/Problem (Free Text): Admission Diagnosis/Problem Admission Diagnosis/Problem Influenza Subjective Update: The patient is a 77-year-old gentleman who was admitted previously to acute hospitalization on October 17, 2018 secondary to influenza A and pneumonia. The patient has been complaining of nasal congestion which has been chronic for him for many decades. Reportedly he has a deviated septum and has been questioning that his oxygen levels might be low because of this. He is still on oxygen. The patient says that he still feels somewhat short of breath. He has been tolerating diet. He does feel weak and fatigued. Functional Status: Reports: Pain Controlled, Tolerating Diet - Review of Systems General: Reports: Weakness, Fatigue HEENT: Reports: Sinus Congestion Pulmonary: Reports: Shortness of Breath, Cough Cardiovascular: Reports: No Symptoms Gastrointestinal: Reports: No Symptoms Genitourinary: Reports: No Symptoms Musculoskeletal: Reports: Back Pain Skin: Reports: No Symptoms Neurological: Reports: No Symptoms Psychiatric: Reports: No Symptoms - Patient Data Vitals - Most Recent: Last Vital Signs Temp 36.3 C 10/22/18 08:00 Pulse 64 10/22/18 08:00 Resp 17 10/22/18 08:00 BP 129/61 10/22/18 08:00 Pulse Ox 90 L 10/22/18 08:00 Weight - Most Recent: 110.677 kg I&O - Last 24 Hours: Intake & Output 10/21/18 10/22/18 10/22/18 22:59 06:59 14:59 Intake Total 400 330 Balance 400 330 Lab Results Last 24 Hours: Laboratory Results - last 24 hr 10/21/18 10/21/18 10/21/18 Range/Units 06:21 12:08 16:32 WBC (4.0-11.0) K/uL RBC (4.50-5.90) M/uL Hgb (13.0-17.0) g/dL Hct (38.0-50.0) % MCV (80.0-98.0) fL MCH (27.0-32.0) pg MCHC (31.0-37.0) g/dL RDW Std Deviation (28.0-62.0) fl RDW Coeff of Edson (11.0-15.0) % Plt Count (150-400) K/uL MPV (7.40-12.00) fL Neut % (Auto) (48.0-80.0) % Lymph % (Auto) (16.0-40.0) % [place] % (Auto) (0.0-15.0) % Eos % (Auto) (0.0-7.0) % Baso % (Auto) (0.0-1.5) % Neut # (Auto) (1.4-5.7) K/uL Lymph # (Auto) (0.6-2.4) K/uL [place] # (Auto) (0.0-0.8) K/uL Eos # (Auto) (0.0-0.7) K/uL Baso # (Auto) (0.0-0.1) K/uL Nucleated RBC % /100WBC Nucleated RBCs # K/uL Sodium (136-148) mmol/L Potassium (3.5-5.1) mmol/L Chloride (98-107) mmol/L Carbon Dioxide (21.0-32.0) mmol/L BUN (7.0-18.0) mg/dL Creatinine (0.8-1.3) mg/dL Est Cr Clr Drug Dosing mL/min Estimated GFR (MDRD) ml/min Glucose (74-106) mg/dL POC Glucose 94 85 147 H (60-110) mg/dL Calcium (8.5-10.1) mg/dL 10/21/18 10/22/18 10/22/18 Range/Units 20:41 05:46 05:46 WBC 5.12 (4.0-11.0) K/uL RBC 4.63 (4.50-5.90) M/uL Hgb 13.5 (13.0-17.0) g/dL Hct 44.5 (38.0-50.0) % MCV 96.1 (80.0-98.0) fL MCH 29.2 (27.0-32.0) pg MCHC 30.3 L (31.0-37.0) g/dL RDW Std Deviation 54.0 (28.0-62.0) fl RDW Coeff of Edson 15 (11.0-15.0) % Plt Count 108 L (150-400) K/uL MPV 10.20 (7.40-12.00) fL Neut % (Auto) 47.3 L (48.0-80.0) % Lymph % (Auto) 37.9 (16.0-40.0) % [place] % (Auto) 12.1 (0.0-15.0) % Eos % (Auto) 2.5 (0.0-7.0) % Baso % (Auto) 0.2 (0.0-1.5) % Neut # (Auto) 2.4 (1.4-5.7) K/uL Lymph # (Auto) 1.9 (0.6-2.4) K/uL [place] # (Auto) 0.6 (0.0-0.8) K/uL Eos # (Auto) 0.1 (0.0-0.7) K/uL Baso # (Auto) 0.0 (0.0-0.1) K/uL Nucleated RBC % 0.0 /100WBC Nucleated RBCs # 0 K/uL Sodium 141 (136-148) mmol/L Potassium 4.2 (3.5-5.1) mmol/L Chloride 104 (98-107) mmol/L Carbon Dioxide 37.0 H (21.0-32.0) mmol/L BUN 20 H (7.0-18.0) mg/dL Creatinine 1.1 (0.8-1.3) mg/dL Est Cr Clr Drug Dosing 57.13 mL/min Estimated GFR (MDRD) > 60.0 ml/min Glucose 103 (74-106) mg/dL POC Glucose 155 H (60-110) mg/dL Calcium 9.1 (8.5-10.1) mg/dL 10/22/18 Range/Units 07:00 WBC (4.0-11.0) K/uL RBC (4.50-5.90) M/uL Hgb (13.0-17.0) g/dL Hct (38.0-50.0) % MCV (80.0-98.0) fL MCH (27.0-32.0) pg MCHC (31.0-37.0) g/dL RDW Std Deviation (28.0-62.0) fl RDW Coeff of Edson (11.0-15.0) % Plt Count (150-400) K/uL MPV (7.40-12.00) fL Neut % (Auto) (48.0-80.0) % Lymph % (Auto) (16.0-40.0) % [place] % (Auto) (0.0-15.0) % Eos % (Auto) (0.0-7.0) % Baso % (Auto) (0.0-1.5) % Neut # (Auto) (1.4-5.7) K/uL Lymph # (Auto) (0.6-2.4) K/uL [place] # (Auto) (0.0-0.8) K/uL Eos # (Auto) (0.0-0.7) K/uL Baso # (Auto) (0.0-0.1) K/uL Nucleated RBC % /100WBC Nucleated RBCs # K/uL Sodium (136-148) mmol/L Potassium (3.5-5.1) mmol/L Chloride (98-107) mmol/L Carbon Dioxide (21.0-32.0) mmol/L BUN (7.0-18.0) mg/dL Creatinine (0.8-1.3) mg/dL Est Cr Clr Drug Dosing mL/min Estimated GFR (MDRD) ml/min Glucose (74-106) mg/dL POC Glucose 92 (60-110) mg/dL Calcium (8.5-10.1) mg/dL Med Orders - Current: Current Medications Acetaminophen (Tylenol) 650 mg PO Q4H PRN PRN Reason: Pain (Mild 1-3)/fever Last Admin: 10/20/18 04:30 Dose: 650 mg Albuterol/Ipratropium (Duoneb 3.0-0.5 Mg/3 Ml) 3 ml NEB Q4HRRT PRN PRN Reason: Shortness Of Breath/wheezing Last Admin: 10/20/18 16:57 Dose: 3 ml Allopurinol (Zyloprim) 300 mg PO BEDTIME [facility] Last Admin: 10/21/18 20:36 Dose: 300 mg Aspirin (Aspirin) 81 mg PO BEDTIME [facility] Last Admin: 10/21/18 20:33 Dose: 81 mg Atorvastatin Calcium (Lipitor) 20 mg PO BEDTIME [facility] Last Admin: 10/21/18 20:36 Dose: 20 mg Benazepril HCl (Lotensin) 40 mg PO BEDTIME [facility] Last Admin: 10/21/18 20:43 Dose: 40 mg Docusate Sodium (Colace) 100 mg PO BID PRN PRN Reason: Constipation Enoxaparin Sodium (Lovenox) 30 mg SUBCUT Q24H [facility] Last Admin: 10/21/18 17:40 Dose: 30 mg Gabapentin (Neurontin) 600 mg PO BEDTIME [facility] Last Admin: 10/21/18 20:36 Dose: 600 mg Hydrochlorothiazide (Hydrochlorothiazide) 25 mg PO BEDTIME [facility] Last Admin: 10/21/18 20:38 Dose: 25 mg Azithromycin 500 mg/ Sodium (Chloride) 250 mls @ 250 mls/hr IV Q24H [facility] Last Admin: 10/21/18 17:40 Dose: 250 mls/hr Insulin Aspart (Novolog) 0 unit SUBCUT QIDACANDBED [facility]; Protocol Last Admin: 10/22/18 07:05 Dose: Not Given Metformin HCl (Glucophage Xr) 500 mg PO BEDTIME [facility] Last Admin: 10/21/18 20:45 Dose: 500 mg Naproxen (Naprosyn) 500 mg PO BID PRN PRN Reason: Pain Last Admin: 10/20/18 22:58 Dose: 500 mg Ondansetron HCl (Zofran Odt) 4 mg PO Q4H PRN PRN Reason: nausea, able to take PO Oseltamivir Phosphate (Tamiflu) 75 mg PO DAILY [facility] Last Admin: 10/21/18 08:32 Dose: 75 mg Oxycodone HCl (Oxycodone) 5 mg PO Q4H PRN PRN Reason: Pain (moderate 4-6) Last Admin: 10/19/18 04:28 Dose: 5 mg Sodium Chloride (Saline Flush) 10 ml FLUSH ASDIRECTED PRN PRN Reason: Keep Vein Open Last Admin: 10/17/18 16:40 Dose: 10 ml Sodium Chloride (Saline Flush) 2.5 ml FLUSH ASDIRECTED PRN PRN Reason: Keep Vein Open Last Admin: 10/17/18 16:40 Dose: 2.5 ml Tamsulosin HCl (Flomax) 0.4 mg PO BEDTIME [facility] Last Admin: 10/21/18 20:36 Dose: 0.4 mg Temazepam (Restoril) 15 mg PO BEDTIME PRN PRN Reason: Sleep Discontinued Medications Acetaminophen (Tylenol Extra Strength) 1,000 mg PO ONETIME ONE Stop: 10/17/18 16:35 Last Admin: 10/17/18 16:39 Dose: 1,000 mg Albuterol/Ipratropium (Duoneb 3.0-0.5 Mg/3 Ml) Confirm Administered Dose 3 ml .ROUTE .STK-MED ONE Stop: 10/17/18 15:11 Last Admin: 10/17/18 15:50 Dose: Not Given Albuterol/Ipratropium (Duoneb 3.0-0.5 Mg/3 Ml) 3 ml NEB ONETIME ONE Stop: 10/17/18 15:01 Last Admin: 10/17/18 15:51 Dose: 3 ml Sodium Chloride (Normal Saline) 1,000 mls @ 75 mls/hr IV ASDIRECTED [facility] Last Admin: 10/20/18 03:01 Dose: 75 mls/hr Azithromycin 500 mg/ Sodium (Chloride) 250 mls @ 250 mls/hr IV Q24H [facility] Last Admin: 10/17/18 18:08 Dose: Not Given Azithromycin 500 mg/ Sodium (Chloride) 250 mls @ 250 mls/hr IV Q24H [facility] Last Admin: 10/17/18 18:08 Dose: Not Given Azithromycin 500 mg/ Sodium (Chloride) 250 mls @ 250 mls/hr IV Q24H [facility] Insulin Aspart (Novolog) 0 unit SUBCUT ACBREAKFASTANDBED [facility]; Protocol Morphine Sulfate (Morphine) 2 mg IVPUSH Q2H PRN PRN Reason: Pain (severe 7-10) Stop: 10/18/18 16:50 Oseltamivir Phosphate (Tamiflu) 75 mg PO ONETIME ONE Stop: 10/17/18 16:33 Last Admin: 10/17/18 16:39 Dose: 75 mg - Exam Quality Assessment: Supplemental Oxygen General: Alert, Oriented, Cooperative HEENT: Pupils Equal, Pupils Reactive. No: Mucous Membr. Moist/[place] (Dry) Neck: Supple, Trachea Midline Lungs: Rales (Bibasilar) Cardiovascular: Regular Rate, Regular Rhythm GI/Abdominal Exam: Normal Bowel Sounds, Soft, Non-Tender, No Distention (Male) Exam: Deferred Back Exam: Normal Inspection, Full Range of Motion (Age appropriate changes) Extremities: Normal Inspection, No Pedal Edema Skin: Warm, Dry, Intact Neurological: No New Focal Deficit Psy/Mental Status: Alert, Normal Affect - Problem List & Annotations (1) Acute respiratory failure SNOMED Code(s): 59875856 Code(s): J96.00 - ACUTE RESPIRATORY FAILURE, UNSP W HYPOXIA OR HYPERCAPNIA Status: Acute Priority: High Current Visit: Yes Qualifiers: Respiratory failure complication: hypoxia Qualified Code(s): J96.01 - Acute respiratory failure with hypoxia Annotation/Comment:: Improved (2) Influenza A SNOMED Code(s): 132200191 Code(s): J10.1 - FLU DUE TO OTH IDENT INFLUENZA VIRUS W OTH RESP MANIFEST Status: Acute Priority: High Current Visit: Yes (3) BPH (benign prostatic hyperplasia) SNOMED Code(s): 281090350 Code(s): N40.0 - BENIGN PROSTATIC HYPERPLASIA WITHOUT LOWER URINRY TRACT SYMP Status: Chronic Priority: Medium Current Visit: Yes Qualifiers: Lower urinary tract symptom presence: symptoms present Lower urinary tract symptom detail: urinary hesitancy Qualified Code(s): N40.1 - Benign prostatic hyperplasia with lower urinary tract symptoms; R39.11 - Hesitancy of micturition (4) Dyslipidemia associated with type 2 diabetes mellitus SNOMED Code(s): 72558068 Code(s): E11.69 - TYPE 2 DIABETES MELLITUS WITH OTHER SPECIFIED COMPLICATION ; E78.5 - HYPERLIPIDEMIA, UNSPECIFIED Status: Resolved Priority: High Current Visit: Yes (5) Hypertension SNOMED Code(s): 29934939 Code(s): I10 - ESSENTIAL (PRIMARY) HYPERTENSION Status: Chronic Priority : High Current Visit: Yes Qualifiers: Hypertension type: essential hypertension Qualified Code(s): I10 - Essential (primary) hypertension (6) Obesity (BMI 30-39.9) SNOMED Code(s): 069735669, 859541654 Code(s): E66.9 - OBESITY, UNSPECIFIED Status: Chronic Priority: Medium Current Visit: Yes (7) Pre-diabetes SNOMED Code(s): 366612135 Code(s): R73.03 - PREDIABETES Status: Chronic Priority: Medium Current Visit: Yes - Problem List Review Problem List Initiated/Reviewed/Updated: Yes - My Orders Last 24 Hours: My Active Orders 10/22/18 05:11 Chest 1V Frontal [CR] AM - Plan Plan:: The patient is a 78-year-old gentleman who is doing better today. He had been diagnosed originally upon admission with influenza A. Since that time the patient has been on Tamiflu. This will be discontinued. I've also ordered repeat laboratories on with a chest x-ray in the morning. It may be necessary or appropriate to discontinue his antibiotics. Cultures thus far are negative. The patient will be continued on temazepam to help in to sleep. He also be kept on Lovenox for DVT prophylaxis. PT OT is also following patient and this will continue. The patient is a 78-year-old gentleman who has been admitted secondary initially to influenza A with pneumonia. The Tamiflu is been discontinued. The patient is still having some issues with shortness of breath and he'll be kept on oxygen support to keep his saturations around 92%. Repeat chest x-ray does show bibasilar atelectasis and the patient has been encouraged to continue to use incentive spirometer. The patient does have difficulty in taking a full deep breath although this is chronic for him. The patient will be continued on his diabetic diet as tolerated. He'll have Accu-Cheks before meals and at bedtime. The patient also be afforded insulin for glycemic control. It should be noted that patient has refused at times insulin coverage. He is also on Lovenox for DVT prophylaxis. The patient has been encouraged to ambulate. Repeat laboratory studies have been ordered and he should be appropriate for discharge in 1-2 days.
[2018-10-22] MEDS: Oseltamivir 75 MG Cap PO SCH (08:57)
--- NOTE | 2018-10-22 09:29 | CR ---
INDICATION: PNA. FINDINGS: A portable AP upright view of the chest was obtained. The cardiac silhouette and pulmonary vasculature are within normal limits. There is bibasilar atelectasis. There is atelectasis or scarring in the right midlung. The lungs otherwise are clear. IMPRESSION : Bibasilar atelectasis. Dictated by Kole Kent MD @ 10/22/2018 9:26:58 AM Dictated by: Kole Kent MD @ 10/22/2018 09:27:05 (Electronically Signed)
[2018-10-22] MEDS: Benzonatate 100 MG Cap PO PRN (10:53)
[2018-10-22] MEDS: Azithromycin 500 MG in Sodium Chloride 0.9% 250 ML IV SCH (17:32)
[2018-10-22] MEDS: Enoxaparin 30 MG/0.3 ML Syringe SUBCUT SCH (17:33)
[2018-10-22] MEDS: Aspirin 81 MG Tab.Chew PO SCH (20:50)
[2018-10-22] MEDS: metFORMIN 500 MG Tab.ER PO SCH (20:52)
[2018-10-22] MEDS: Gabapentin 300 MG Cap PO SCH (20:52)
[2018-10-22] MEDS: Benazepril 10 MG Tab PO SCH (20:52)
[2018-10-22] MEDS: Tamsulosin 0.4 MG Cap.ER PO SCH (20:53)
[2018-10-22] MEDS: atorvaSTATin 20 MG Tab PO SCH (20:54)
[2018-10-22] MEDS: Hydrochlorothiazide 12.5 MG Cap PO SCH (20:54)
[2018-10-22] MEDS: Allopurinol 300 MG Tab PO SCH (20:55)
[2018-10-23] MEDS: Insulin Aspart 100 Units/ML 3 ML Pen SUBCUT SCH ×4 (06:36→21:15)
[2018-10-23 06:54] LABS: CHLORIDE,CL 100 mmol/L (98-107); SODIUM,NA 139 mmol/L (136-148)
[2018-10-23] MEDS: Azithromycin 250 MG Tab PO SCH (11:26)
[2018-10-23] MEDS: Fluticasone Propionate Nasal Spray 16 GM Bottle NASBOTH SCH (11:26)
[2018-10-23] MEDS: Albuterol/Ipratropium 3.0-0.5 MG/3 ML Neb Soln NEB SCH ×3 (13:20→21:14)
--- NOTE | 2018-10-23 14:00 | PCM.PN ---
- General Info Date of Service: 10/23/18 Subjective Update: Pt doing well from a infection standpoint, still requiring O2 supplementation due to desaturation once on RA. Pt still complaining of cough and nasal congestion as well. He has had nose bleeds likely secondary to the deviated septum. - Patient Data Vitals - Most Recent: Last Vital Signs Temp 36.4 C 10/23/18 11:56 Pulse 65 10/23/18 11:56 Resp 18 10/23/18 11:56 BP 136/73 10/23/18 11:56 Pulse Ox 97 10/23/18 11:56 Weight - Most Recent: 110.677 kg I&O - Last 24 Hours: Intake & Output 10/22/18 10/23/18 10/23/18 22:59 06:59 14:59 Intake Total 600 200 Balance 600 200 Lab Results Last 24 Hours: Laboratory Results - last 24 hr 10/22/18 10/22/18 10/23/18 Range/Units 17:15 20:49 06:10 WBC 5.07 (4.0-11.0) K/uL RBC 4.68 (4.50-5.90) M/uL Hgb 13.7 (13.0-17.0) g/dL Hct 44.6 (38.0-50.0) % MCV 95.3 (80.0-98.0) fL MCH 29.3 (27.0-32.0) pg MCHC 30.7 L (31.0-37.0) g/dL RDW Std Deviation 53.3 (28.0-62.0) fl RDW Coeff of Edson 15 (11.0-15.0) % Plt Count 120 L (150-400) K/uL MPV 10.50 (7.40-12.00) fL Neut % (Auto) 49.0 (48.0-80.0) % Lymph % (Auto) 39.1 (16.0-40.0) % [place] % (Auto) 8.5 (0.0-15.0) % Eos % (Auto) 3.2 (0.0-7.0) % Baso % (Auto) 0.2 (0.0-1.5) % Neut # (Auto) 2.5 (1.4-5.7) K/uL Lymph # (Auto) 2.0 (0.6-2.4) K/uL [place] # (Auto) 0.4 (0.0-0.8) K/uL Eos # (Auto) 0.2 (0.0-0.7) K/uL Baso # (Auto) 0.0 (0.0-0.1) K/uL Nucleated RBC % 0.0 /100WBC Nucleated RBCs # 0 K/uL Sodium (136-148) mmol/L Potassium (3.5-5.1) mmol/L Chloride (98-107) mmol/L Carbon Dioxide (21.0-32.0) mmol/L BUN (7.0-18.0) mg/dL Creatinine (0.8-1.3) mg/dL Est Cr Clr Drug Dosing mL/min Estimated GFR (MDRD) ml/min Glucose (74-106) mg/dL POC Glucose 143 H 83 (60-110) mg/dL Calcium (8.5-10.1) mg/dL 10/23/18 10/23/18 10/23/18 Range/Units 06:10 06:35 11:44 WBC (4.0-11.0) K/uL RBC (4.50-5.90) M/uL Hgb (13.0-17.0) g/dL Hct (38.0-50.0) % MCV (80.0-98.0) fL MCH (27.0-32.0) pg MCHC (31.0-37.0) g/dL RDW Std Deviation (28.0-62.0) fl RDW Coeff of Edson (11.0-15.0) % Plt Count (150-400) K/uL MPV (7.40-12.00) fL Neut % (Auto) (48.0-80.0) % Lymph % (Auto) (16.0-40.0) % [place] % (Auto) (0.0-15.0) % Eos % (Auto) (0.0-7.0) % Baso % (Auto) (0.0-1.5) % Neut # (Auto) (1.4-5.7) K/uL Lymph # (Auto) (0.6-2.4) K/uL [place] # (Auto) (0.0-0.8) K/uL Eos # (Auto) (0.0-0.7) K/uL Baso # (Auto) (0.0-0.1) K/uL Nucleated RBC % /100WBC Nucleated RBCs # K/uL Sodium 139 (136-148) mmol/L Potassium 4.2 (3.5-5.1) mmol/L Chloride 100 (98-107) mmol/L Carbon Dioxide 34.0 H (21.0-32.0) mmol/L BUN 21 H (7.0-18.0) mg/dL Creatinine 1.0 (0.8-1.3) mg/dL Est Cr Clr Drug Dosing 62.84 mL/min Estimated GFR (MDRD) > 60.0 ml/min Glucose 104 (74-106) mg/dL POC Glucose 99 98 (60-110) mg/dL Calcium 9.1 (8.5-10.1) mg/dL Med Orders - Current: Current Medications Acetaminophen (Tylenol) 650 mg PO Q4H PRN PRN Reason: Pain (Mild 1-3)/fever Last Admin: 10/20/18 04:30 Dose: 650 mg Albuterol/Ipratropium (Duoneb 3.0-0.5 Mg/3 Ml) 3 ml NEB Q4HRRT [facility] Last Admin: 10/23/18 13:20 Dose: 3 ml Allopurinol (Zyloprim) 300 mg PO BEDTIME [facility] Last Admin: 10/22/18 20:55 Dose: 300 mg Aspirin (Aspirin) 81 mg PO BEDTIME [facility] Last Admin: 10/22/18 20:50 Dose: 81 mg Atorvastatin Calcium (Lipitor) 20 mg PO BEDTIME [facility] Last Admin: 10/22/18 20:54 Dose: 20 mg Azithromycin (Zithromax) 250 mg PO Q24H [facility] Last Admin: 10/23/18 11:26 Dose: 250 mg Benazepril HCl (Lotensin) 40 mg PO BEDTIME [facility] Last Admin: 10/22/18 20:52 Dose: 40 mg Benzonatate (Tessalon Perles) 100 mg PO Q8H PRN PRN Reason: Cough Last Admin: 10/22/18 10:53 Dose: 100 mg Docusate Sodium (Colace) 100 mg PO BID PRN PRN Reason: Constipation Last Admin: 10/22/18 09:24 Dose: 100 mg Enoxaparin Sodium (Lovenox) 40 mg SUBCUT Q24H [facility] Fluticasone Propionate (Flonase) 0 gm NASBOTH DAILY [facility] Last Admin: 10/23/18 11:26 Dose: 1 sprays Gabapentin (Neurontin) 600 mg PO BEDTIME [facility] Last Admin: 10/22/18 20:52 Dose: 600 mg Hydrochlorothiazide (Hydrochlorothiazide) 25 mg PO BEDTIME [facility] Last Admin: 10/22/18 20:54 Dose: 25 mg Insulin Aspart (Novolog) 0 unit SUBCUT QIDACANDBED [facility]; Protocol Last Admin: 10/23/18 11:54 Dose: Not Given Metformin HCl (Glucophage Xr) 500 mg PO BEDTIME [facility] Last Admin: 10/22/18 20:52 Dose: 500 mg Ondansetron HCl (Zofran Odt) 4 mg PO Q4H PRN PRN Reason: nausea, able to take PO Oxycodone HCl (Oxycodone) 5 mg PO Q4H PRN PRN Reason: Pain (moderate 4-6) Last Admin: 10/19/18 04:28 Dose: 5 mg Sodium Chloride (Saline Flush) 10 ml FLUSH ASDIRECTED PRN PRN Reason: Keep Vein Open Last Admin: 10/17/18 16:40 Dose: 10 ml Sodium Chloride (Saline Flush) 2.5 ml FLUSH ASDIRECTED PRN PRN Reason: Keep Vein Open Last Admin: 10/17/18 16:40 Dose: 2.5 ml Tamsulosin HCl (Flomax) 0.4 mg PO BEDTIME [facility] Last Admin: 10/22/18 20:53 Dose: 0.4 mg Temazepam (Restoril) 15 mg PO BEDTIME PRN PRN Reason: Sleep Discontinued Medications Acetaminophen (Tylenol Extra Strength) 1,000 mg PO ONETIME ONE Stop: 10/17/18 16:35 Last Admin: 10/17/18 16:39 Dose: 1,000 mg Albuterol/Ipratropium (Duoneb 3.0-0.5 Mg/3 Ml) Confirm Administered Dose 3 ml .ROUTE .STK-MED ONE Stop: 10/17/18 15:11 Last Admin: 10/17/18 15:50 Dose: Not Given Albuterol/Ipratropium (Duoneb 3.0-0.5 Mg/3 Ml) 3 ml NEB ONETIME ONE Stop: 10/17/18 15:01 Last Admin: 10/17/18 15:51 Dose: 3 ml Albuterol/Ipratropium (Duoneb 3.0-0.5 Mg/3 Ml) 3 ml NEB Q4HRRT PRN PRN Reason: Shortness Of Breath/wheezing Last Admin: 10/20/18 16:57 Dose: 3 ml Enoxaparin Sodium (Lovenox) 30 mg SUBCUT Q24H [facility] Last Admin: 10/22/18 17:33 Dose: 30 mg Sodium Chloride (Normal Saline) 1,000 mls @ 75 mls/hr IV ASDIRECTED [facility] Last Admin: 10/20/18 03:01 Dose: 75 mls/hr Azithromycin 500 mg/ Sodium (Chloride) 250 mls @ 250 mls/hr IV Q24H [facility] Last Admin: 10/17/18 18:08 Dose: Not Given Azithromycin 500 mg/ Sodium (Chloride) 250 mls @ 250 mls/hr IV Q24H [facility] Last Admin: 10/17/18 18:08 Dose: Not Given Azithromycin 500 mg/ Sodium (Chloride) 250 mls @ 250 mls/hr IV Q24H [facility] Azithromycin 500 mg/ Sodium (Chloride) 250 mls @ 250 mls/hr IV Q24H [facility] Last Admin: 10/22/18 17:32 Dose: 250 mls/hr Insulin Aspart (Novolog) 0 unit SUBCUT ACBREAKFASTANDBED [facility]; Protocol Morphine Sulfate (Morphine) 2 mg IVPUSH Q2H PRN PRN Reason: Pain (severe 7-10) Stop: 10/18/18 16:50 Naproxen (Naprosyn) 500 mg PO BID PRN PRN Reason: Pain Last Admin: 10/20/18 22:58 Dose: 500 mg Oseltamivir Phosphate (Tamiflu) 75 mg PO ONETIME ONE Stop: 10/17/18 16:33 Last Admin: 10/17/18 16:39 Dose: 75 mg Oseltamivir Phosphate (Tamiflu) 75 mg PO DAILY [facility] Last Admin: 10/22/18 08:57 Dose: 75 mg - Exam Quality Assessment: Supplemental Oxygen General: Alert, Oriented Lungs: Clear to Auscultation, Normal Respiratory Effort, Decreased Breath Sounds Cardiovascular: Regular Rate, Regular Rhythm Extremities: Normal Inspection - Problem List Review Problem List Initiated/Reviewed/Updated: Yes - My Orders Last 24 Hours: My Active Orders 10/23/18 10:30 Azithromycin [Zithromax] 250 mg PO Q24H 10/23/18 10:45 Fluticasone Propionate [Flonase] See Dose Instructions NASBOTH DAILY 10/23/18 14:00 Albuterol/Ipratropium [DuoNeb 3.0-0.5 MG/3 ML] 3 ml NEB Q4HRRT - Plan Plan:: The patient is a 78-year-old gentleman who is doing better today. He had been diagnosed originally upon admission with influenza A. Since that time the patient has been on Tamiflu. This will be discontinued. I've also ordered repeat laboratories on with a chest x-ray in the morning. It may be necessary or appropriate to discontinue his antibiotics. Cultures thus far are negative. The patient will be continued on temazepam to help in to sleep. He also be kept on Lovenox for DVT prophylaxis. PT OT is also following patient and this will continue. Problems: #1. Influenza and Pna coinfection -Pt has completed his tamiflu dosing -Pt to be switched from IV 500mg of Azithromycin to 250mg Oral azithromycin. -WBC within normal limits. -Continue with contact precautions #2. Hypoxia secondary to coinfection in #1. - PT on O2 3L currently -Titrate as tolerated -PT to get scheduled dounebs Q4hr, Flonase -PT to do incentive spirometry every 1-2 hours for his bibasilar atelectasis which is also contributing to the hypoxia.
[2018-10-23] MEDS ORDERED: Enoxaparin 40 MG/0.4 ML Syringe SUBCUT SCH (17:00)
[2018-10-23] MEDS: Aspirin 81 MG Tab.Chew PO SCH (21:06)
[2018-10-23] MEDS: Allopurinol 300 MG Tab PO SCH (21:07)
[2018-10-23] MEDS: atorvaSTATin 20 MG Tab PO SCH (21:07)
[2018-10-23] MEDS: Gabapentin 300 MG Cap PO SCH (21:07)
[2018-10-23] MEDS: Tamsulosin 0.4 MG Cap.ER PO SCH (21:07)
[2018-10-23] MEDS: Benazepril 10 MG Tab PO SCH (21:07)
[2018-10-23] MEDS: Hydrochlorothiazide 12.5 MG Cap PO SCH (21:07)
[2018-10-23] MEDS: Benzonatate 100 MG Cap PO PRN (21:08)
[2018-10-23] MEDS: metFORMIN 500 MG Tab.ER PO SCH (21:08)
[2018-10-24] MEDS: Albuterol/Ipratropium 3.0-0.5 MG/3 ML Neb Soln NEB SCH ×6 (01:27→21:02)
[2018-10-24] MEDS: Insulin Aspart 100 Units/ML 3 ML Pen SUBCUT SCH ×4 (06:52→20:55)
[2018-10-24] MEDS: Fluticasone Propionate Nasal Spray 16 GM Bottle NASBOTH SCH (09:56)
[2018-10-24] MEDS: Azithromycin 250 MG Tab PO SCH (10:13)
--- NOTE | 2018-10-24 18:39 | PCM.PN ---
- General Info Date of Service: 10/24/18 Subjective Update: Patient doing better from a respiratory standpoint, however still having nosebleeds, when being assessed T had an active nosebleed. - Patient Data Vitals - Most Recent: Last Vital Signs Temp 36.6 C 10/24/18 15:56 Pulse 72 10/24/18 15:56 Resp 18 10/24/18 15:56 BP 129/61 10/24/18 15:56 Pulse Ox 92 L 10/24/18 15:56 Weight - Most Recent: 110.677 kg I&O - Last 24 Hours: Intake & Output 10/24/18 10/24/18 10/24/18 06:59 14:59 22:59 Intake Total 600 600 Balance 600 600 Lab Results Last 24 Hours: Laboratory Results - last 24 hr 10/24/18 10/24/18 10/24/18 Range/Units 05:28 05:28 06:17 WBC 5.77 (4.0-11.0) K/uL RBC 4.65 (4.50-5.90) M/uL Hgb 13.5 (13.0-17.0) g/dL Hct 43.9 (38.0-50.0) % MCV 94.4 (80.0-98.0) fL MCH 29.0 (27.0-32.0) pg MCHC 30.8 L (31.0-37.0) g/dL RDW Std Deviation 52.9 (28.0-62.0) fl RDW Coeff of Edson 15 (11.0-15.0) % Plt Count 133 L (150-400) K/uL MPV 10.80 (7.40-12.00) fL Neut % (Auto) 47.5 L (48.0-80.0) % Lymph % (Auto) 39.3 (16.0-40.0) % [place] % (Auto) 11.1 (0.0-15.0) % Eos % (Auto) 1.9 (0.0-7.0) % Baso % (Auto) 0.2 (0.0-1.5) % Neut # (Auto) 2.7 (1.4-5.7) K/uL Lymph # (Auto) 2.3 (0.6-2.4) K/uL [place] # (Auto) 0.6 (0.0-0.8) K/uL Eos # (Auto) 0.1 (0.0-0.7) K/uL Baso # (Auto) 0.0 (0.0-0.1) K/uL Nucleated RBC % 0.0 /100WBC Nucleated RBCs # 0 K/uL Sodium 139 (136-148) mmol/L Potassium 3.9 (3.5-5.1) mmol/L Chloride 100 (98-107) mmol/L Carbon Dioxide 35.1 H (21.0-32.0) mmol/L BUN 24 H (7.0-18.0) mg/dL Creatinine 1.2 (0.8-1.3) mg/dL Est Cr Clr Drug Dosing 52.37 mL/min Estimated GFR (MDRD) 58.9 ml/min Glucose 100 (74-106) mg/dL POC Glucose 96 (60-110) mg/dL Calcium 9.2 (8.5-10.1) mg/dL Total Bilirubin 0.6 (0.2-1.0) mg/dL AST 27 (15-37) IU/L ALT 22 (14-63) IU/L Alkaline Phosphatase 78 (46-116) U/L Total Protein 7.0 (6.4-8.2) g/dL Albumin 3.2 L (3.4-5.0) g/dL Globulin 3.8 (2.6-4.0) g/dL Albumin/Globulin Ratio 0.8 L (0.9-1.6) 10/24/18 10/24/18 Range/Units 11:10 16:09 WBC (4.0-11.0) K/uL RBC (4.50-5.90) M/uL Hgb (13.0-17.0) g/dL Hct (38.0-50.0) % MCV (80.0-98.0) fL MCH (27.0-32.0) pg MCHC (31.0-37.0) g/dL RDW Std Deviation (28.0-62.0) fl RDW Coeff of Edson (11.0-15.0) % Plt Count (150-400) K/uL MPV (7.40-12.00) fL Neut % (Auto) (48.0-80.0) % Lymph % (Auto) (16.0-40.0) % [place] % (Auto) (0.0-15.0) % Eos % (Auto) (0.0-7.0) % Baso % (Auto) (0.0-1.5) % Neut # (Auto) (1.4-5.7) K/uL Lymph # (Auto) (0.6-2.4) K/uL [place] # (Auto) (0.0-0.8) K/uL Eos # (Auto) (0.0-0.7) K/uL Baso # (Auto) (0.0-0.1) K/uL Nucleated RBC % /100WBC Nucleated RBCs # K/uL Sodium (136-148) mmol/L Potassium (3.5-5.1) mmol/L Chloride (98-107) mmol/L Carbon Dioxide (21.0-32.0) mmol/L BUN (7.0-18.0) mg/dL Creatinine (0.8-1.3) mg/dL Est Cr Clr Drug Dosing mL/min Estimated GFR (MDRD) ml/min Glucose (74-106) mg/dL POC Glucose 94 141 H (60-110) mg/dL Calcium (8.5-10.1) mg/dL Total Bilirubin (0.2-1.0) mg/dL AST (15-37) IU/L ALT (14-63) IU/L Alkaline Phosphatase (46-116) U/L Total Protein (6.4-8.2) g/dL Albumin (3.4-5.0) g/dL Globulin (2.6-4.0) g/dL Albumin/Globulin Ratio (0.9-1.6) Med Orders - Current: Current Medications Acetaminophen (Tylenol) 650 mg PO Q4H PRN PRN Reason: Pain (Mild 1-3)/fever Last Admin: 10/20/18 04:30 Dose: 650 mg Albuterol/Ipratropium (Duoneb 3.0-0.5 Mg/3 Ml) 3 ml NEB Q4HRRT [facility] Last Admin: 10/24/18 17:35 Dose: 3 ml Allopurinol (Zyloprim) 300 mg PO BEDTIME [facility] Last Admin: 10/23/18 21:07 Dose: 300 mg Aspirin (Aspirin) 81 mg PO BEDTIME [facility] Last Admin: 10/23/18 21:06 Dose: 81 mg Atorvastatin Calcium (Lipitor) 20 mg PO BEDTIME [facility] Last Admin: 10/23/18 21:07 Dose: 20 mg Azithromycin (Zithromax) 250 mg PO Q24H [facility] Last Admin: 10/24/18 10:13 Dose: 250 mg Benazepril HCl (Lotensin) 40 mg PO BEDTIME [facility] Last Admin: 10/23/18 21:07 Dose: 40 mg Benzonatate (Tessalon Perles) 100 mg PO Q8H PRN PRN Reason: Cough Last Admin: 10/23/18 21:08 Dose: 100 mg Docusate Sodium (Colace) 100 mg PO BID PRN PRN Reason: Constipation Last Admin: 10/22/18 09:24 Dose: 100 mg Fluticasone Propionate (Flonase) 0 gm NASBOTH DAILY [facility] Last Admin: 10/24/18 09:56 Dose: 1 sprays Gabapentin (Neurontin) 600 mg PO BEDTIME [facility] Last Admin: 10/23/18 21:07 Dose: 600 mg Hydrochlorothiazide (Hydrochlorothiazide) 25 mg PO BEDTIME [facility] Last Admin: 10/23/18 21:07 Dose: 25 mg Insulin Aspart (Novolog) 0 unit SUBCUT QIDACANDBED [facility]; Protocol Last Admin: 10/24/18 17:09 Dose: Not Given Latanoprost (Xalatan 0.005% Ophth Soln) 2.5 ml EYEBOTH BEDTIME [facility] Metformin HCl (Glucophage Xr) 500 mg PO BEDTIME [facility] Last Admin: 10/23/18 21:08 Dose: 500 mg Ondansetron HCl (Zofran Odt) 4 mg PO Q4H PRN PRN Reason: nausea, able to take PO Oxycodone HCl (Oxycodone) 5 mg PO Q4H PRN PRN Reason: Pain (moderate 4-6) Last Admin: 10/19/18 04:28 Dose: 5 mg Sodium Chloride (Saline Flush) 10 ml FLUSH ASDIRECTED PRN PRN Reason: Keep Vein Open Last Admin: 10/17/18 16:40 Dose: 10 ml Sodium Chloride (Saline Flush) 2.5 ml FLUSH ASDIRECTED PRN PRN Reason: Keep Vein Open Last Admin: 10/17/18 16:40 Dose: 2.5 ml Tamsulosin HCl (Flomax) 0.4 mg PO BEDTIME [facility] Last Admin: 10/23/18 21:07 Dose: 0.4 mg Temazepam (Restoril) 15 mg PO BEDTIME PRN PRN Reason: Sleep Last Admin: 10/23/18 21:08 Dose: 15 mg Timolol Maleate (Timoptic 0.5% Ophth Soln) 15 ml EYELF BID [facility] Discontinued Medications Acetaminophen (Tylenol Extra Strength) 1,000 mg PO ONETIME ONE Stop: 10/17/18 16:35 Last Admin: 10/17/18 16:39 Dose: 1,000 mg Albuterol/Ipratropium (Duoneb 3.0-0.5 Mg/3 Ml) Confirm Administered Dose 3 ml .ROUTE .STK-MED ONE Stop: 10/17/18 15:11 Last Admin: 10/17/18 15:50 Dose: Not Given Albuterol/Ipratropium (Duoneb 3.0-0.5 Mg/3 Ml) 3 ml NEB ONETIME ONE Stop: 10/17/18 15:01 Last Admin: 10/17/18 15:51 Dose: 3 ml Albuterol/Ipratropium (Duoneb 3.0-0.5 Mg/3 Ml) 3 ml NEB Q4HRRT PRN PRN Reason: Shortness Of Breath/wheezing Last Admin: 10/20/18 16:57 Dose: 3 ml Enoxaparin Sodium (Lovenox) 30 mg SUBCUT Q24H [facility] Last Admin: 10/22/18 17:33 Dose: 30 mg Enoxaparin Sodium (Lovenox) 40 mg SUBCUT Q24H [facility] Last Admin: 10/23/18 18:15 Dose: 40 mg Sodium Chloride (Normal Saline) 1,000 mls @ 75 mls/hr IV ASDIRECTED [facility] Last Admin: 10/20/18 03:01 Dose: 75 mls/hr Azithromycin 500 mg/ Sodium (Chloride) 250 mls @ 250 mls/hr IV Q24H [facility] Last Admin: 10/17/18 18:08 Dose: Not Given Azithromycin 500 mg/ Sodium (Chloride) 250 mls @ 250 mls/hr IV Q24H [facility] Last Admin: 10/17/18 18:08 Dose: Not Given Azithromycin 500 mg/ Sodium (Chloride) 250 mls @ 250 mls/hr IV Q24H [facility] Azithromycin 500 mg/ Sodium (Chloride) 250 mls @ 250 mls/hr IV Q24H [facility] Last Admin: 10/22/18 17:32 Dose: 250 mls/hr Insulin Aspart (Novolog) 0 unit SUBCUT ACBREAKFASTANDBED [facility]; Protocol Morphine Sulfate (Morphine) 2 mg IVPUSH Q2H PRN PRN Reason: Pain (severe 7-10) Stop: 10/18/18 16:50 Naproxen (Naprosyn) 500 mg PO BID PRN PRN Reason: Pain Last Admin: 10/20/18 22:58 Dose: 500 mg Oseltamivir Phosphate (Tamiflu) 75 mg PO ONETIME ONE Stop: 10/17/18 16:33 Last Admin: 10/17/18 16:39 Dose: 75 mg Oseltamivir Phosphate (Tamiflu) 75 mg PO DAILY [facility] Last Admin: 10/22/18 08:57 Dose: 75 mg - Exam Quality Assessment: Supplemental Oxygen General: Alert, Oriented Lungs: Clear to Auscultation, Normal Respiratory Effort Cardiovascular: Regular Rate, Regular Rhythm Extremities: Normal Inspection - Problem List Review Problem List Initiated/Reviewed/Updated: Yes - My Orders Last 24 Hours: My Active Orders 10/24/18 21:00 Latanoprost [Xalatan 0.005% Ophth Soln] 2.5 ml EYEBOTH BEDTIME Timolol Maleate [Timoptic 0.5% Ophth Soln] 15 ml EYELF BID - Plan Plan:: The patient is a 78-year-old who has been diagnosed with an influenza infection along with possible pneumonia infection he is been treated with Tamiflu already and has completed his therapy and is also on azithromycin for his pneumonia infection. Problems: #1. Influenza and Pna coinfection -Pt has completed his tamiflu dosing -Pt to be switched from IV 500mg of Azithromycin to 250mg Oral azithromycin. -His white blood cell count continues to be within normal limits -Continue with contact precautions #2. Hypoxia secondary to coinfection in #1. - PT on O2 4L currently which is an increase from his O2 requirements yesterday -Patient likely will need to be discharged home on oxygen while requiring oxygen test to qualify for home O2. -There is likely an underlying COPD component as well patient likely one discharge will also need to be on COPD medications and have a follow-up arranged with her primary care physician for spirometry assessment. -PT to get scheduled dounebs Q4hr, Flonase -PT to do incentive spirometry every 1-2 hours for his bibasilar atelectasis which is also contributing to the hypoxia. #3. Nosebleeds in [place] to a deviated septum - Patient continues to have nosebleeds shall discontinue the Lovenox which is there for DVT prophylaxis and simply have the patient on SCDs this hopefully should control the extent of the patient's nosebleeds. Anticipated discharge shall be in the a.m.
[2018-10-24] MEDS: Aspirin 81 MG Tab.Chew PO SCH (20:56)
[2018-10-24] MEDS: Tamsulosin 0.4 MG Cap.ER PO SCH (20:57)
[2018-10-24] MEDS: metFORMIN 500 MG Tab.ER PO SCH (20:57)
[2018-10-24] MEDS: atorvaSTATin 20 MG Tab PO SCH (20:58)
[2018-10-24] MEDS: Hydrochlorothiazide 12.5 MG Cap PO SCH (20:58)
[2018-10-24] MEDS: Gabapentin 300 MG Cap PO SCH (20:59)
[2018-10-24] MEDS: Allopurinol 300 MG Tab PO SCH (20:59)
[2018-10-24] MEDS: Benazepril 10 MG Tab PO SCH (21:00)
[2018-10-24] MEDS ORDERED: Latanoprost 0.005% Ophth Soln 2.5 ML Bottle EYEBOTH SCH (21:00)
[2018-10-24] MEDS: Timolol Maleate 0.5% Ophth Soln 15 ML Bottle EYELF SCH (21:03)
[2018-10-25] MEDS: Albuterol/Ipratropium 3.0-0.5 MG/3 ML Neb Soln NEB SCH ×3 (02:35→09:56)
[2018-10-25] MEDS: Insulin Aspart 100 Units/ML 3 ML Pen SUBCUT SCH ×2 (06:36→14:25)
[2018-10-25] MEDS: Fluticasone Propionate Nasal Spray 16 GM Bottle NASBOTH SCH (10:10)
[2018-10-25] MEDS: Timolol Maleate 0.5% Ophth Soln 15 ML Bottle EYELF SCH (10:12)
[2018-10-25] MEDS: Azithromycin 250 MG Tab PO SCH (11:08)
--- NOTE | 2018-10-25 11:57 | PCM.DCSUM1 ---
Discharge Summary - Hospital Course HPI Initial Comments: Discharge Summary Date of admission: 10/18/18 Date of discharge: 10/25/18 Admitting diagnosis: #1. Acute respiratory distress secondary to a positive influenza #2. Co-infection with pneumonia infection based on imaging #3. Deviated septum resulting in sinusitis/nasal congestion/history of nosebleeds Discharge diagnoses: #1. Acute respiratory distress secondary to positive influenza and pneumonia improving #2. Patient is hypoxic and will require home O2 #3. Deviated septum resulting in nasal congestion nosebleeds now under better control #4. Likely underlying COPD #5. Consultations: None Procedures: None Hospitalization course: Patient was admitted secondary to his respiratory distress due to his positive influenza infection and imaging indicating a co- infection with possible pneumonia. Patient was treated with Tamiflu for a total of 6 days at therapeutic dose as well as treated for his pneumonia with azithromycin. Patient was clinically improving however continued to be hypoxic requiring increased levels of O2 support to maintain a saturation above 88%. Patient likely had complications secondary to post viral syndrome due to his influenza diagnosis along with likely underlying undiagnosed COPD that have prolonged his symptoms and resulted in his hypoxia. For the patient's deviated septum he was having nosebleeds whenever he would blow his nose very hard as a result we did end up stopping any anticoagulation which did result in cessation of his nosebleeds. By date of discharge patient still continue to be hypoxic so requiring 3-4 L of O2 support to maintain a saturation above 88% at rest, patient however was comfortable being discharged home. Decision was made to have the patient discharged home on home O2 as he qualified , also be placed on a long-acting inhaler Advair, patient is to have establish care with the [facility] residency clinic here in [place], where it is recommended that the resident get a outpatient spirometry to assess for any underlying COPD that the patient may have as well as assess the deviated septum issues as the patient improves clinically. Patient was agreeable to this plan as was subsequently discharged on 10/25/18. Diagnosis: Stroke: No Modified Crocheron Scale: No Symptoms at All Modified Crocheron Scale Score: 0 - Discharge Data Discharge Date: 10/25/18 Discharge Disposition: Home, Self-Care 01 Condition: Fair - Patient Summary/Data Consults: Consultations 10/19/18 10:45 Consult to Physical Therapy [PT Evaluation and Treatment] [CONS] Routine OT Evaluation and Treatment [CONS] Routine - Patient Instructions Diet: Usual Diet as Tolerated Activity: As Tolerated Driving: Do Not Drive Showering/Bathing: May Shower Notify Provider of: Fever, Increased Pain, Swelling and Redness, Drainage, Nausea and/or Vomiting - Discharge Plan Prescriptions/Med Rec: Benzonatate [Tessalon Perle] 100 mg PO TID PRN 10 Days #30 capsule PRN Reason: Cough Fluticasone Propionate [Flonase Allergy Relief] 9.9 ml NS DAILY 30 Days #1 spray.susp Fluticasone/Salmeterol [Advair 250-50] 2 puff INH BID 30 Days #1 diskus predniSONE [Prednisone] 5 mg PO DAILY 7 Days #1 tab.ds.pk Home Medications: Home Meds Gabapentin [Neurontin] 600 mg PO BEDTIME 10/17/18 [History] Hydrochlorothiazide [Microzide] 25 mg PO BEDTIME 10/17/18 [History] Tamsulosin [Flomax] 0.4 mg PO BEDTIME 10/17/18 [History] Allopurinol [Zyloprim] 300 mg PO BEDTIME 10/18/18 [History] Aspirin 81 mg PO BEDTIME 10/18/18 [History] Benazepril HCl [Lotensin] 40 mg PO BEDTIME 10/18/18 [History] Naproxen 500 mg PO BID PRN 10/18/18 [History] atorvaSTATin [Lipitor] 20 mg PO BEDTIME 10/18/18 [History] Latanoprost 1 drop EYEBOTH BEDTIME 10/23/18 [History] Timolol Maleate [Timoptic 0.5% Ophth Soln] 1 drop EYELF BID 10/23/18 [History] metFORMIN HCl [Metformin HCl] 500 mg PO DAILY@0800 10/23/18 [History] Benzonatate [Tessalon Perle] 100 mg PO TID PRN 10 Days #30 capsule 10/25/18 [Rx] Fluticasone Propionate [Flonase Allergy Relief] 9.9 ml NS DAILY 30 Days #1 spray.susp 10/25/18 [Rx] Fluticasone/Salmeterol [Advair 250-50] 2 puff INH BID 30 Days #1 diskus [Rx] predniSONE [Prednisone] 5 mg PO DAILY 7 Days #1 tab.ds.pk 10/25/18 [Rx] Oxygen Therapy Mode: Nasal Cannula Forms: ED Department Discharge Referrals: PCP,None [Primary Care Provider] - Amadeo Hutchins MD [Resident] - - Discharge Summary/Plan Comment DC Time >30 min.: No - Patient Data Vitals - Most Recent: Last Vital Signs Temp 36.6 C 10/25/18 08:00 Pulse 70 10/25/18 08:00 Resp 18 10/25/18 08:00 BP 109/56 L 10/25/18 08:00 Pulse Ox 89 L 10/25/18 08:00 Weight - Most Recent: 110.677 kg I&O - Last 24 hours: Intake & Output 10/24/18 10/25/18 10/25/18 22:59 06:59 14:59 Intake Total 600 390 Balance 600 390 Lab Results - Last 24 hrs: Laboratory Results - last 24 hr 10/24/18 10/24/18 10/25/18 Range/Units 16:09 20:48 06:31 POC Glucose 141 H 144 H 91 (60-110) mg/dL 10/25/18 Range/Units 11:22 POC Glucose 83 (60-110) mg/dL Med Orders - Current: Current Medications Acetaminophen (Tylenol) 650 mg PO Q4H PRN PRN Reason: Pain (Mild 1-3)/fever Last Admin: 10/20/18 04:30 Dose: 650 mg Albuterol/Ipratropium (Duoneb 3.0-0.5 Mg/3 Ml) 3 ml NEB Q4HRRT [facility] Last Admin: 10/25/18 09:56 Dose: Not Given Allopurinol (Zyloprim) 300 mg PO BEDTIME [facility] Last Admin: 10/24/18 20:59 Dose: 300 mg Aspirin (Aspirin) 81 mg PO BEDTIME [facility] Last Admin: 10/24/18 20:56 Dose: 81 mg Atorvastatin Calcium (Lipitor) 20 mg PO BEDTIME [facility] Last Admin: 10/24/18 20:58 Dose: 20 mg Azithromycin (Zithromax) 250 mg PO Q24H [facility] Last Admin: 10/25/18 11:08 Dose: 250 mg Benazepril HCl (Lotensin) 40 mg PO BEDTIME [facility] Last Admin: 10/24/18 21:00 Dose: 40 mg Benzonatate (Tessalon Perles) 100 mg PO Q8H PRN PRN Reason: Cough Last Admin: 10/23/18 21:08 Dose: 100 mg Docusate Sodium (Colace) 100 mg PO BID PRN PRN Reason: Constipation Last Admin: 10/22/18 09:24 Dose: 100 mg Fluticasone Propionate (Flonase) 0 gm NASBOTH DAILY [facility] Last Admin: 10/25/18 10:10 Dose: 1 sprays Gabapentin (Neurontin) 600 mg PO BEDTIME [facility] Last Admin: 10/24/18 20:59 Dose: 600 mg Hydrochlorothiazide (Hydrochlorothiazide) 25 mg PO BEDTIME [facility] Last Admin: 10/24/18 20:58 Dose: 25 mg Insulin Aspart (Novolog) 0 unit SUBCUT QIDACANDBED [facility]; Protocol Last Admin: 10/25/18 06:36 Dose: Not Given Latanoprost (Xalatan 0.005% Ophth Soln) 2.5 ml EYEBOTH BEDTIME [facility] Last Admin: 10/24/18 21:04 Dose: 1 drop Metformin HCl (Glucophage Xr) 500 mg PO BEDTIME [facility] Last Admin: 10/24/18 20:57 Dose: 500 mg Ondansetron HCl (Zofran Odt) 4 mg PO Q4H PRN PRN Reason: nausea, able to take PO Oxycodone HCl (Oxycodone) 5 mg PO Q4H PRN PRN Reason: Pain (moderate 4-6) Last Admin: 10/19/18 04:28 Dose: 5 mg Sodium Chloride (Saline Flush) 10 ml FLUSH ASDIRECTED PRN PRN Reason: Keep Vein Open Last Admin: 10/17/18 16:40 Dose: 10 ml Sodium Chloride (Saline Flush) 2.5 ml FLUSH ASDIRECTED PRN PRN Reason: Keep Vein Open Last Admin: 10/17/18 16:40 Dose: 2.5 ml Tamsulosin HCl (Flomax) 0.4 mg PO BEDTIME [facility] Last Admin: 10/24/18 20:57 Dose: 0.4 mg Temazepam (Restoril) 15 mg PO BEDTIME PRN PRN Reason: Sleep Last Admin: 10/23/18 21:08 Dose: 15 mg Timolol Maleate (Timoptic 0.5% Ophth Soln) 15 ml EYELF BID [facility] Last Admin: 10/25/18 10:12 Dose: 1 drop Discontinued Medications Acetaminophen (Tylenol Extra Strength) 1,000 mg PO ONETIME ONE Stop: 10/17/18 16:35 Last Admin: 10/17/18 16:39 Dose: 1,000 mg Albuterol/Ipratropium (Duoneb 3.0-0.5 Mg/3 Ml) Confirm Administered Dose 3 ml .ROUTE .STK-MED ONE Stop: 10/17/18 15:11 Last Admin: 10/17/18 15:50 Dose: Not Given Albuterol/Ipratropium (Duoneb 3.0-0.5 Mg/3 Ml) 3 ml NEB ONETIME ONE Stop: 10/17/18 15:01 Last Admin: 10/17/18 15:51 Dose: 3 ml Albuterol/Ipratropium (Duoneb 3.0-0.5 Mg/3 Ml) 3 ml NEB Q4HRRT PRN PRN Reason: Shortness Of Breath/wheezing Last Admin: 10/20/18 16:57 Dose: 3 ml Enoxaparin Sodium (Lovenox) 30 mg SUBCUT Q24H [facility] Last Admin: 10/22/18 17:33 Dose: 30 mg Enoxaparin Sodium (Lovenox) 40 mg SUBCUT Q24H [facility] Last Admin: 10/23/18 18:15 Dose: 40 mg Sodium Chloride (Normal Saline) 1,000 mls @ 75 mls/hr IV ASDIRECTED [facility] Last Admin: 10/20/18 03:01 Dose: 75 mls/hr Azithromycin 500 mg/ Sodium (Chloride) 250 mls @ 250 mls/hr IV Q24H [facility] Last Admin: 10/17/18 18:08 Dose: Not Given Azithromycin 500 mg/ Sodium (Chloride) 250 mls @ 250 mls/hr IV Q24H [facility] Last Admin: 10/17/18 18:08 Dose: Not Given Azithromycin 500 mg/ Sodium (Chloride) 250 mls @ 250 mls/hr IV Q24H [facility] Azithromycin 500 mg/ Sodium (Chloride) 250 mls @ 250 mls/hr IV Q24H [facility] Last Admin: 10/22/18 17:32 Dose: 250 mls/hr Insulin Aspart (Novolog) 0 unit SUBCUT ACBREAKFASTANDBED [facility]; Protocol Morphine Sulfate (Morphine) 2 mg IVPUSH Q2H PRN PRN Reason: Pain (severe 7-10) Stop: 10/18/18 16:50 Naproxen (Naprosyn) 500 mg PO BID PRN PRN Reason: Pain Last Admin: 10/20/18 22:58 Dose: 500 mg Oseltamivir Phosphate (Tamiflu) 75 mg PO ONETIME ONE Stop: 10/17/18 16:33 Last Admin: 10/17/18 16:39 Dose: 75 mg Oseltamivir Phosphate (Tamiflu) 75 mg PO DAILY [facility] Last Admin: 10/22/18 08:57 Dose: 75 mg
== END 2018-10-25 15:35 | disposition home or self-care (01) | DRG 193 ==
LOC: MW.ED 14:52 → MW.MS 16:43 → OBSVTOIN 10-18 07:07
PROVIDERS: ADMIT Internal Medicine; ATTEND Internal Medicine
PROC: 5A09357 Assistance with Respiratory Ventilation, Less than 24 Consecutive Hours, Continuous Positive Airway Pressure (ICD-10-PCS; principal; 2018-10-17)
DX: J10.1 Influenza due to other identified influenza virus with other respiratory manifestations (principal); J10.00 Influenza due to other identified influenza virus with unspecified type of pneumonia; J96.01 Acute respiratory failure with hypoxia; J44.0 Chronic obstructive pulmonary disease with (acute) lower respiratory infection; N40.0 Benign prostatic hyperplasia without lower urinary tract symptoms; J34.2 Deviated nasal septum; R73.03 Prediabetes; E78.00 Pure hypercholesterolemia, unspecified; E78.5 Hyperlipidemia, unspecified; I10 Essential (primary) hypertension; R50.9 Fever, unspecified; R53.83 Other fatigue; R05 Cough; R51 Headache; G62.9 Polyneuropathy, unspecified; N40.1 Benign prostatic hyperplasia with lower urinary tract symptoms; R39.11 Hesitancy of micturition; E66.9 Obesity, unspecified; J18.9 Pneumonia, unspecified organism; R04.0 Epistaxis; E11.69 Type 2 diabetes mellitus with other specified complication; Z88.0 Allergy status to penicillin; Z79.899 Other long term (current) drug therapy; Z79.84 Long term (current) use of oral hypoglycemic drugs; Z87.891 Personal history of nicotine dependence
CPT/HCPCS: 36415; 36600; 71045; 71045-26; 71046; 71046-26; 80048; 80053; 82803; 82962; 83036; 84484; 85025; 87081; 87804; 87880-QW; 93005; 94640; 94660; 96361; 96365; 96372; 97161-GP; 97165-GO; 99285-25; A9270-GY; G0378; J0456; J1650; J7040; J7050; J7620-GY

== ENCOUNTER 2021-03-24 21:43 | Inpatient (IN) | payer MEDICARE, OTHER ==
[2021-03-24 23:24] LABS: BLOOD UREA NITROGEN,BUN 25 mg/dL (7.0-18.0); CARBON DIOXIDE,CO2 31.9 mmol/L (21.0-32.0); CHLORIDE,CL 101 mmol/L (98-107); GLUCOSE RANDOM 156 mg/dL (74-106); POTASSIUM,K 4.2 mmol/L (3.5-5.1); SODIUM,NA 140 mmol/L (136-148)
--- NOTE | 2021-03-24 23:25 | PCM.EKG ---
#1 Interpretation EKG Date: 03/24/21 Time: 23:14 Rhythm: NSR Rate (Beats/Min): 76 Willard: LAD-Left Willard Deviation P-Wave: Present QRS: Normal ST-T: Normal QT: Normal (Anterolateral and inferior Q waves) Comparison: No Change (10/27/18) EKG Interpretation Comments: Sinus Rhythm unchanged from prior
[2021-03-25] MEDS ORDERED: Iopamidol 755 MG/ML 500 ML Multipack Bottle IVPUSH STA (00:08)
--- NOTE | 2021-03-25 00:29 | CT ---
INDICATION: Lower abdominal pain TECHNIQUE: CT abdomen and pelvis acquired with 100 cc Isovue 370 IV contrast. COMPARISON: None FINDINGS: Lower chest: Atelectasis at both lung bases. Liver: Unremarkable. Spleen: Calcified granulomata. Pancreas: Unremarkable. Gallbladder and bile ducts: Questionable gallbladder wall thickening. Adrenal glands: Unremarkable. Kidneys: Left extrarenal pelvis. Simple cysts on both kidneys. GI tract: Colonic diverticulosis. Appendix is normal. Vascular structures: Unremarkable. Lymph nodes: Unremarkable. Miscellaneous: Unremarkable. No free air or significant free fluid. Pelvic Organs: Unremarkable. Bones: Unremarkable for age. IMPRESSION: Questionable gallbladder wall thickening. Consider right upper quadrant ultrasound for further evaluation. Colonic diverticulosis. Atelectasis at both lung bases. Please note that all CT scans at this facility use dose modulation, iterative reconstruction, and/or weight-based dosing when appropriate to reduce radiation dose to as low as reasonably achievable. Dictated by Yumiko Ramon MD @ 03/25/2021 12:29:[address] Yumiko Ramon @ Mar 25 2021 12:29AM
--- NOTE | 2021-03-25 00:48 | CT ---
INDICATION: Hypoxia TECHNIQUE: CT chest pulmonary PE protocol acquired with 100 cc Omnipaque 350 IV contrast. COMPARISON: None FINDINGS: Cardiovascular structures: Normal vascular enhancement of the pulmonary arteries, no sign of pulmonary embolism. Heart size is normal. Coronary artery calcifications. No sign of aneurysm or dissection in the thoracic aorta. Mediastinum and judi: No mass or adenopathy. Lungs: Dependent atelectasis at both lung bases. Emphysema. 3 mm pulmonary nodule right upper lobe image 38 series 402. Pleura and pericardium: No effusions. Chest wall and axilla: No mass or adenopathy. Upper abdomen: Calcified splenic granulomata. Bones: No significant findings. IMPRESSION: No pulmonary embolism or pneumonia. Emphysema. 3 mm pulmonary nodule on the right upper lobe. Recommend follow-up per Fleischner society guidelines, as listed below. Coronary artery disease. FLEISCHNER SOCIETY GUIDELINES - SOLID NODULES: SINGLE LOW RISK - nodule less than 6 mm: No routine follow-up. - nodule 6-8 mm: CT at 6-12 months, then consider CT at 18-24 months. - nodule greater than 8 mm: Consider CT at 3 months, PET/CT or tissue sampling. SINGLE HIGH RISK - nodule less than 6 mm: Optional CT at 12 months. - nodule 6-8 mm: CT at 6-12 months, then CT at 18-24 months. - nodule greater than 8 mm: Consider CT at 3 months, PET/CT or tissue sampling. Please note that all CT scans at this facility use dose modulation, iterative reconstruction, and/or weight-based dosing when appropriate to reduce radiation dose to as low as reasonably achievable. Dictated by Yumiko Ramon MD @ 03/25/2021 12:48:[address] Yumiko Ramon @ Mar 25 2021 12:48AM
[2021-03-25] MEDS ORDERED: Albuterol/Ipratropium 3.0-0.5 MG/3 ML Neb Soln NEB ONE (00:59)
[2021-03-25] MEDS ORDERED: Morphine 2 MG/ML SYRINGE IVPUSH ONE (01:57)
--- NOTE | 2021-03-25 03:12 | US ---
INDICATION: Right upper quadrant abdomen pain TECHNIQUE: Ultrasound abdomen limited. Sonographic images of the right upper quadrant were obtained using bailey-scale and color Doppler images. COMPARISON: None FINDINGS: Liver: Mild hepatomegaly. No masses. No intrahepatic biliary dilatation. Gallbladder: Gallbladder sludge with gallbladder wall and cholelithiasis positive sonographic Brar sign. Common bile duct: 2 mm. Pancreas: Obscured by bowel gas. Right kidney: Normal in size. Normal echotexture and cortex. No masses, stones, or hydronephrosis. IMPRESSION: 1. Cholelithiasis with gallbladder sludge, gallbladder wall thickening and positive sonographic Brar sign suggesting acute cholecystitis. 2. Mild hepatomegaly. Dictated by Param Torre MD @ 03/25/2021 3:10:[address] Param Torre @ Mar 25 2021 3:10AM
[2021-03-25] MEDS ORDERED: methylPREDNISolone Sodium Succinate 40 MG/1 ML SDV IVPUSH ONE ×2 (03:15→08:12)
[2021-03-25] MEDS ORDERED: Lactated Ringers 1,000 ML IV SCH ×2 (03:15→09:15)
[2021-03-25] MEDS ORDERED: Piperacillin/Tazobactam 4.5 GM in Sodium Chloride 0.9% 100 ML IV ONE (03:16)
--- NOTE | 2021-03-25 03:42 | EDM.PDOC ---
ED HPI GENERAL MEDICAL PROBLEM - General Chief Complaint: Abdominal Pain Stated Complaint: ABDOMINAL PAIN Time Seen by Provider: 03/24/21 22:06 - History of Present Illness INITIAL COMMENTS - FREE TEXT/NARRATIVE: CHIEF COMPLAINT(S): "I got a whole bunch of pain." HISTORY OF PRESENT ILLNESS: This is a 80-year-old man with a past medical history of diabetes mellitus, hypertension, hyperlipidemia, BPH, and possible COPD not on home oxygen who comes to the emergency department with a chief complaint of "I got a whole bunch of pain." The patient states "I got a whole bunch of pain. The patient states that the pain starts around his waist, goes to his right side and radiates to his back and all over including his chest, back, legs. He describes it as intermittent and it possibly like a knife all over. He denies any shortness of breath, diaphoresis, nausea or vomiting. He states that he cannot sleep when he cannot do anything because of the pain. He rates his pain as 8 out of 10 and it is worse when he takes a deep breath. He states there is no relieving factors as he has tried ibuprofen. In addition he states that his legs are swollen and he is unable to get them to go down. He denies any history of CHF, CAD but states that he is on hydrochlorothiazide but it does not seem to be working. He states that he does have a cough but is not changed for the last 35 years. He states that he was evaluated outpatient in addition for a rash that was on his back which he describes as little knives all over his back when he is exposed to water. He states that they gave him doxycycline which does not seem to be helping. He denies any fevers, purulent drainage. REVIEW OF SYSTEMS: Constitutional: Denies fever, chills. Eyes: Denies eye pain Ears, Nose, Mouth, & Throat: Denies earache Cardiovascular: Positive for chest pain Respiratory: Denies shortness of breath Gastrointestinal: Positive for abdominal pain. Denies nausea, vomiting, diarrhea, hematochezia, hematemesis, bilious emesis Genitourinary: Positive for suprapubic pain. Denies hematuria, dysuria, penile discharge, testicular pain or swelling Skin: Positive for rash to back and chest MSK: Positive for bilateral upper and lower extremity pain, and back pain. Neurological: Denies blurred vision, headache, numbness, tingling, trouble speaking, trouble swallowing Psychiatric: Denies depression PAST MEDICAL HISTORY: As per history of present illness and as reviewed below otherwise noncontributory. SURGICAL HISTORY: As per history of present illness and as reviewed below otherwise noncontributory. SOCIAL HISTORY: As per history of present illness and as reviewed below otherwise noncontributory. FAMILY HISTORY: As per history of present illness and as reviewed below otherwise noncontributory. EXAMINATION OF ORGAN SYSTEMS/BODY AREAS: Constitutional: Blood pressure is 154/80, heart rate 82, respiratory rate 24 with an oxygen saturation of 76% on room air. Temperature 36.2. On 6 L nasal cannula patient is saturating 92 to 94%. General: Elderly man who does not appear to be in any acute respiratory distress but does not overall appear well Psychiatric: Appropriate mood and affect. Eyes: No scleral icterus or conjunctival erythema pupils are equal round and reactive to light. Extraocular movements intact. No nystagmus noted ENMT: Moist mucous membranes. No pharyngeal erythema tongue protrudes midline. No stridor, no trismus, no drooling Cardiovascular: Regular, rate, and rhythm. No gallops, murmurs, or rubs. Bilateral upper extremity pulses symmetric and intact. 3+ lower extremity pitting edema up to the knees bilaterally. No JVD. Respiratory: Lungs clear to auscultation bilaterally. No wheezes, rales, or rhonchi. No prolonged expiratory phase or wheezing. The patient is speaking in full sentences. Gastrointestinal: Soft, non-tender, non-distended. No rebound or guarding. Negative Brar's and McBurney's. Patient has a protuberant abdomen normoactive bowel sounds Genitourinary: There is suprapubic tenderness to palpation. Musculoskeletal: Normal range of motion. No deformity. No midline cervical, thoracic, or lumbar tenderness. Skin: There is a erythematous rash on the patient's posterior back and anterior chest and up to his neck with some papules which are blanchable and nontender to touch. Neurological: Alert, GCS 15 distal sensation is intact. MEDICAL DECISION MAKING AND COURSE IN THE ED WITH INTERPRETATION/REVIEW OF DIAGNOSTIC STUDIES: This is a 80-year-old man with a past medical history of diabetes mellitus, hypertension, hyperlipidemia, BPH, and possible COPD not on home oxygen who comes to the emergency department with essentially total body pain with an examination revealing a protuberant abdomen with clear lung sounds, lower extremity edema and only suprapubic tenderness on examination. At this time differential remains broad. Is uncertain as to what is causing the patient's hypoxia given that he has no wheezing, is speaking in full sentences and has no prolonged expiratory phase. We will treat provide the patient with 1 DuoNeb treatment however differential does include pulmonary embolism. We will obtain a CT angiogram of the chest for further evaluation. In addition given the lower extremity edema and hypoxia new onset CHF is also a consideration. We did obtain an EKG which was unremarkable. 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 Given the protuberant abdomen, lower extremity edema differential also includes acute liver failure or hypoalbuminemia as the cause of the lower extremity edema. Will obtain broad laboratory analysis including CBC, CMP, BNP, troponin, coags, TSH, T4 and urinalysis. Will obtain a Covid swab even though the patient is vaccinated this could be a breakthrough infection given the degree of hypoxia. We did place the patient on bakery technician and pulse oximetry. Given the abdominal pain given that his suprapubic urinary tract infection secondary to BPH is on the differential however given the degree of his pain throughout his body that he is describing will obtain a CT abdomen pelvis for further evaluation. After DuoNeb treatment the patient was saturating 94% on 6 L nasal cannula. Again his lung sounds were clear however we were unable to titrate the patient off oxygen or titrate the oxygen down at this time. We will repeat DuoNeb treatments and provide the patient with Solu-Medrol IV. Laboratory: CBC reveals macrocytosis with an MCV of 100 and thrombocytopenia at 139 otherwise unremarkable. Coags are within normal limits. CMP reveals elevated BUN at 25, hyperglycemia at 156, hypoalbuminemia at 3.0. Troponin and BNP are negative. TSH is 5.45 and T4 0.56 Covid is negative. Urinalysis was a clean catch and was negative for leukocyte esterase, negative for nitrites, and small for blood. Proteinuria interpretation: Microscopic hematuria The radiological images were viewed by myself along with reading the report from the radiologist. CT angiogram of the chest for pulmonary embolism does not reveal any evidence of pulmonary embolism, pneumonia. There is a 3 mm pulmonary nodule on the right upper lobe. The heart is normal in size there is coronary artery calcifications and there is dependent atelectasis at both lung bases. There is emphysema without any evidence of pulmonary edema or pleural effusion. CT abdomen pelvis with contrast reveals questionable gallbladder wall thickening, colonic diverticulosis and atelectasis at both lungs. There are small cysts on both kidneys. On reevaluation I did repeat the patient's abdominal examination he does have a positive Brar sign at this time. Therefore we will obtain a right upper quadrant ultrasound. The patient has pain therefore I did provide him with 2 mg of IV morphine given the hypoxia I did not want to provide any further to decrease his respiratory drive. The radiological images were viewed by myself along with reading the report from the radiologist. Right upper quadrant abdominal ultrasound reveals cholelithiasis with gallbladder sludge, gallbladder wall thickening and positive sonographic Brar sign to suggest acute cholecystitis. There is mild hepatomegaly. No CBD dilation. After ultrasound I did start the patient on Zosyn for acute cholecystitis and made the patient n.p.o. and started him on maintenance fluids with lactated Ringer's. I did schedule the patient's albuterol treatments every 2 hours given the hypoxia. I did discuss the results at this time and he was amenable to admission and consultation with general surgery. I contacted Dr. Cristobal who stated that given the hypoxia she recommends admission to medicine and they will consider surgical intervention tomorrow after reevaluation. Therefore I contacted Dr. Conley who accepted the patient for admission. DISPOSITION: The patient was admitted to the hospital in stable condition CONDITION: Serious PROCEDURES: Cardiac monitoring interpretation, pulse oximetry interpretation FINAL IMPRESSION(S)/DIAGNOSES: 1. Acute hypoxic respiratory failure secondary to COPD exacerbation 2. Acute abdominal pain secondary to acute cholecystitis Critical Care Procedure Note Authorized and performed by: Joshua Gerardo M.D. Critical Care Time: 64 minutes Due to a high probability of clinically significant, life threatening deterioration, the patient required my highest level of preparedness to intervene emergently and I personally spent this critical care time directly and personally managing the patient. This critical care time included obtaining a history, examining the patient, pulse oximetry; ordering and review of studies; arranging urgent treatment with development of a management plan; evaluation of a patients reponse to treatment; frequent assessment; and discussions with other providers. This critical care time was performed to assess and manage the high probability of imminent, life threatening deterioration that could result in multiorgan failure. It was exclusive of separate billable procedures and treating other patients. Please see MDM section and rest of the note for further information on patient assessment and treatment. Please see MDM section and rest of the note for further information on patient assessment and treatment. Joshua Gerardo M.D. Abdomen Pain Score (Numeric/FACES): 8 - Related Data Allergies Allergy/AdvReac Type Severity Reaction Status Date / Time Penicillins Allergy Hives Verified 03/24/21 22:02 Home Meds: Home Meds Tamsulosin [Flomax] 0.4 mg PO BEDTIME 10/17/18 [History] hydroCHLOROthiazide [Microzide] 25 mg PO BEDTIME 10/17/18 [History] Aspirin 81 mg PO BEDTIME 10/18/18 [History] Benazepril HCl [Lotensin] 40 mg PO BEDTIME 10/18/18 [History] Naproxen 500 mg PO BID PRN 10/18/18 [History] allopurinoL [Zyloprim] 300 mg PO BEDTIME 10/18/18 [History] atorvaSTATin [Lipitor] 20 mg PO BEDTIME 10/18/18 [History] Latanoprost 1 drop EYEBOTH BEDTIME 10/23/18 [History] metFORMIN HCl [Metformin HCl] 500 mg PO DAILY@0800 10/23/18 [History] timoloL maleate [Timoptic 0.5% Ophth Soln] 1 drop EYELF BID 10/23/18 [History] Fluticasone Propionate [Flonase Allergy Relief] 9.9 ml NS DAILY 30 Days #1 spray.susp 10/25/18 [Rx] Fluticasone/Salmeterol [Advair 250-50] 2 puff INH BID 30 Days #1 diskus 10/25/18 [Rx] Past Medical History HEENT History: Reports: None Cardiovascular History: Reports: High Cholesterol, Hypertension Respiratory History: Reports: None Gastrointestinal History: Reports: None Genitourinary History: Reports: BPH Musculoskeletal History: Reports: None Neurological History: Reports: Neuropathy, Peripheral Psychiatric History: Reports: None Endocrine/Metabolic History: Reports: Other (See Below) Other Endocrine/Metabolic History: pre-diabetic Hematologic History: Reports: None Immunologic History: Reports: None Oncologic (Cancer) History: Reports: None Dermatologic History: Reports: None - Infectious Disease History Infectious Disease History: Reports: Chicken Pox, Measles, Mumps - Past Surgical History HEENT Surgical History: Reports: Cataract Surgery Cardiovascular Surgical History: Reports: None Musculoskeletal Surgical History: Reports: None Social & Family History - Family History Family Medical History: No Pertinent Family History - Tobacco Use Tobacco Use Status *Q: Former Tobacco User Used Tobacco, but Quit: Yes Month/Year Tobacco Last Used: 1993 - Caffeine Use Caffeine Use: Reports: Coffee, Soda Caffeine Use Comment: 1x/week - Recreational Drug Use Recreational Drug Use: No - Living Situation & Occupation Living situation: Reports: , with Family Occupation: Retired ED ROS GENERAL - Review of Systems Review Of Systems: See Below ED EXAM, GENERAL - Physical Exam Exam: See Below Course - Vital Signs Last Recorded V/S: Last Vital Signs Temp 36.2 C 03/24/21 22:05 Pulse 64 03/25/21 05:02 Resp 20 03/25/21 05:02 BP 153/80 H 03/25/21 05:02 Pulse Ox 93 L 03/25/21 05:02 - Orders/Labs/Meds Orders: Active Orders 24 hr Category Date Time Status Admission Status [Patient Status] [ADT] Stat ADT 03/25/21 03:41 Active EKG Documentation Completion [RC] STAT Care 03/24/21 22:58 Active RT Aerosol Therapy [RC] ASDIRECTED Care 03/25/21 00:59 Active RT Aerosol Therapy [RC] ASDIRECTED Care 03/25/21 03:26 Active NPO [Nothing Per Oral Diet] [DIET] Diet 03/25/21 Breakfast Active Albuterol/Ipratropium [DuoNeb 3.0-0.5 MG/3 ML] Med 03/25/21 03:30 Active 3 ml NEB Q2H Lactated Ringers [Ringers, Lactated] 1,000 ml Med 03/25/21 03:15 Active IV ASDIRECTED Medication Orders Albuterol/Ipratropium (Albuterol/Ipratropium 3.0-0.5 Mg/3 Ml Neb Soln) 3 ml NEB Q2H JANAE Last Admin: 03/25/21 03:48 Dose: 3 ml Documented by: VENESSA Lactated Ringer's (Ringers, Lactated) 1,000 mls @ 120 mls/hr IV ASDIRECTED [facility] Labs: Laboratory Tests 03/24/21 03/24/21 03/24/21 Range/Units 22:20 22:20 22:20 WBC 7.93 (4.0-11.0) K/uL RBC 5.92 H (4.50-5.90) M/uL Hgb 18.5 H (13.0-17.0) g/dL Hct 59.2 H (38.0-50.0) % MCV 100.0 H (80.0-98.0) fL MCH 31.3 (27.0-32.0) pg MCHC 31.3 (31.0-37.0) g/dL RDW Std Deviation 62.3 H (28.0-62.0) fl RDW Coeff of Edson 17 H (11.0-15.0) % Plt Count 139 L (150-400) K/uL MPV 10.60 (7.40-12.00) fL Neut % (Auto) 66.4 (48.0-80.0) % Lymph % (Auto) 21.8 (16.0-40.0) % [place] % (Auto) 10.0 (0.0-15.0) % Eos % (Auto) 1.8 (0.0-7.0) % Baso % (Auto) 0.0 (0.0-1.5) % Neut # (Auto) 5.3 (1.4-5.7) K/uL Lymph # (Auto) 1.7 (0.6-2.4) K/uL [place] # (Auto) 0.8 (0.0-0.8) K/uL Eos # (Auto) 0.1 (0.0-0.7) K/uL Baso # (Auto) 0.0 (0.0-0.1) K/uL Nucleated RBC % 0.0 /100WBC Nucleated RBCs # 0 K/uL INR 1.14 APTT 27.9 (18.6-31.3) SEC Sodium 140 (136-148) mmol/L Potassium 4.2 (3.5-5.1) mmol/L Chloride 101 (98-107) mmol/L Carbon Dioxide 31.9 (21.0-32.0) mmol/L BUN 25 H (7.0-18.0) mg/dL Creatinine 1.1 (0.8-1.3) mg/dL Est Cr Clr Drug Dosing 55.35 mL/min Estimated GFR (MDRD) > 60.0 ml/min Glucose 156 H (74-106) mg/dL Calcium 8.8 (8.5-10.1) mg/dL Phosphorus 3.7 (2.6-4.7) mg/dL Magnesium 2.0 (1.8-2.4) mg/dL Total Bilirubin 0.8 (0.2-1.0) mg/dL AST 25 (15-37) IU/L ALT 24 (14-63) IU/L Alkaline Phosphatase 105 (46-116) U/L Troponin I < 0.050 (0.000-0.056) ng/mL B-Natriuretic Peptide (<100) PG/ML Total Protein 7.6 (6.4-8.2) g/dL Albumin 3.0 L (3.4-5.0) g/dL Globulin 4.6 H (2.6-4.0) g/dL Albumin/Globulin Ratio 0.7 L (0.9-1.6) Free T4 (0.76-1.46) ng/dL TSH 3rd Generation 5.45 H (0.36-3.74) uIU/mL Urine Color Urine Appearance Urine pH (5.0-8.0) Ur Specific [place] (1.001-1.035) Urine Protein (NEGATIVE) mg/dL Urine Glucose (UA) (NEGATIVE) mg/dL Urine Ketones (NEGATIVE) mg/dL Urine Occult Blood (NEGATIVE) Urine Nitrite (NEGATIVE) Urine Bilirubin (NEGATIVE) Urine Urobilinogen (<2.0) EU/dL Ur Leukocyte Esterase (NEGATIVE) Urine RBC (0-2/HPF) Urine WBC (0-5/HPF) Ur Epithelial Cells (NONE-FEW) Urine Bacteria (NEGATIVE) SARS-CoV-2 RNA (LEROY) (NEGATIVE) 03/24/21 03/24/21 03/24/21 Range/Units 22:20 22:20 23:10 WBC (4.0-11.0) K/uL RBC (4.50-5.90) M/uL Hgb (13.0-17.0) g/dL Hct (38.0-50.0) % MCV (80.0-98.0) fL MCH (27.0-32.0) pg MCHC (31.0-37.0) g/dL RDW Std Deviation (28.0-62.0) fl RDW Coeff of Edson (11.0-15.0) % Plt Count (150-400) K/uL MPV (7.40-12.00) fL Neut % (Auto) (48.0-80.0) % Lymph % (Auto) (16.0-40.0) % [place] % (Auto) (0.0-15.0) % Eos % (Auto) (0.0-7.0) % Baso % (Auto) (0.0-1.5) % Neut # (Auto) (1.4-5.7) K/uL Lymph # (Auto) (0.6-2.4) K/uL [place] # (Auto) (0.0-0.8) K/uL Eos # (Auto) (0.0-0.7) K/uL Baso # (Auto) (0.0-0.1) K/uL Nucleated RBC % /100WBC Nucleated RBCs # K/uL INR APTT (18.6-31.3) SEC Sodium (136-148) mmol/L Potassium (3.5-5.1) mmol/L Chloride (98-107) mmol/L Carbon Dioxide (21.0-32.0) mmol/L BUN (7.0-18.0) mg/dL Creatinine (0.8-1.3) mg/dL Est Cr Clr Drug Dosing mL/min Estimated GFR (MDRD) ml/min Glucose (74-106) mg/dL Calcium (8.5-10.1) mg/dL Phosphorus (2.6-4.7) mg/dL Magnesium (1.8-2.4) mg/dL Total Bilirubin (0.2-1.0) mg/dL AST (15-37) IU/L ALT (14-63) IU/L Alkaline Phosphatase (46-116) U/L Troponin I (0.000-0.056) ng/mL B-Natriuretic Peptide 22 (<100) PG/ML Total Protein (6.4-8.2) g/dL Albumin (3.4-5.0) g/dL Globulin (2.6-4.0) g/dL Albumin/Globulin Ratio (0.9-1.6) Free T4 0.56 L (0.76-1.46) ng/dL TSH 3rd Generation (0.36-3.74) uIU/mL Urine Color YELLOW Urine Appearance CLEAR Urine pH 6.0 (5.0-8.0) Ur Specific [place] 1.025 (1.001-1.035) Urine Protein 30 H (NEGATIVE) mg/dL Urine Glucose (UA) NEGATIVE (NEGATIVE) mg/dL Urine Ketones NEGATIVE (NEGATIVE) mg/dL Urine Occult Blood SMALL H (NEGATIVE) Urine Nitrite NEGATIVE (NEGATIVE) Urine Bilirubin NEGATIVE (NEGATIVE) Urine Urobilinogen 0.2 (<2.0) EU/dL Ur Leukocyte Esterase NEGATIVE (NEGATIVE) Urine RBC 0-2 (0-2/HPF) Urine WBC 0-2 (0-5/HPF) Ur Epithelial Cells RARE (NONE-FEW) Urine Bacteria FEW (NEGATIVE) SARS-CoV-2 RNA (LEROY) (NEGATIVE) 03/25/21 Range/Units 03:35 WBC (4.0-11.0) K/uL RBC (4.50-5.90) M/uL Hgb (13.0-17.0) g/dL Hct (38.0-50.0) % MCV (80.0-98.0) fL MCH (27.0-32.0) pg MCHC (31.0-37.0) g/dL RDW Std Deviation (28.0-62.0) fl RDW Coeff of Edson (11.0-15.0) % Plt Count (150-400) K/uL MPV (7.40-12.00) fL Neut % (Auto) (48.0-80.0) % Lymph % (Auto) (16.0-40.0) % [place] % (Auto) (0.0-15.0) % Eos % (Auto) (0.0-7.0) % Baso % (Auto) (0.0-1.5) % Neut # (Auto) (1.4-5.7) K/uL Lymph # (Auto) (0.6-2.4) K/uL [place] # (Auto) (0.0-0.8) K/uL Eos # (Auto) (0.0-0.7) K/uL Baso # (Auto) (0.0-0.1) K/uL Nucleated RBC % /100WBC Nucleated RBCs # K/uL INR APTT (18.6-31.3) SEC Sodium (136-148) mmol/L Potassium (3.5-5.1) mmol/L Chloride (98-107) mmol/L Carbon Dioxide (21.0-32.0) mmol/L BUN (7.0-18.0) mg/dL Creatinine (0.8-1.3) mg/dL Est Cr Clr Drug Dosing mL/min Estimated GFR (MDRD) ml/min Glucose (74-106) mg/dL Calcium (8.5-10.1) mg/dL Phosphorus (2.6-4.7) mg/dL Magnesium (1.8-2.4) mg/dL Total Bilirubin (0.2-1.0) mg/dL AST (15-37) IU/L ALT (14-63) IU/L Alkaline Phosphatase (46-116) U/L Troponin I (0.000-0.056) ng/mL B-Natriuretic Peptide (<100) PG/ML Total Protein (6.4-8.2) g/dL Albumin (3.4-5.0) g/dL Globulin (2.6-4.0) g/dL Albumin/Globulin Ratio (0.9-1.6) Free T4 (0.76-1.46) ng/dL TSH 3rd Generation (0.36-3.74) uIU/mL Urine Color Urine Appearance Urine pH (5.0-8.0) Ur Specific [place] (1.001-1.035) Urine Protein (NEGATIVE) mg/dL Urine Glucose (UA) (NEGATIVE) mg/dL Urine Ketones (NEGATIVE) mg/dL Urine Occult Blood (NEGATIVE) Urine Nitrite (NEGATIVE) Urine Bilirubin (NEGATIVE) Urine Urobilinogen (<2.0) EU/dL Ur Leukocyte Esterase (NEGATIVE) Urine RBC (0-2/HPF) Urine WBC (0-5/HPF) Ur Epithelial Cells (NONE-FEW) Urine Bacteria (NEGATIVE) SARS-CoV-2 RNA (LEROY) NEGATIVE (NEGATIVE) Meds: Medications Generic Name Dose Route Start Last Admin Trade Name Freq PRN Reason Stop Dose Admin Albuterol/Ipratropium 3 ml 03/25/21 03:30 03/25/21 03:48 Albuterol/Ipratropium 3.0-0.5 Mg/3 Ml Neb Soln NEB 3 ml Q2H JANAE Administration Lactated Ringer's 1,000 mls @ 120 mls/hr 03/25/21 03:15 Ringers, Lactated IV ASDIRECTED JANAE Discontinued Medications Generic Name Dose Route Start Last Admin Trade Name Freq PRN Reason Stop Dose Admin Albuterol/Ipratropium 3 ml 03/25/21 00:59 03/25/21 01:21 Albuterol/Ipratropium 3.0-0.5 Mg/3 Ml Neb Soln NEB 03/25/21 01:00 3 ml ONETIME ONE Administration Piperacillin Sod/Tazobactam 100 mls @ 100 mls/hr 03/25/21 03:16 03/25/21 03:46 Sod 4.5 gm/ Sodium Chloride IV 03/25/21 04:15 100 mls/hr ONETIME ONE Administration Iopamidol 100 ml 03/25/21 00:08 03/25/21 00:08 Iopamidol 755 Mg/Ml 500 Ml Multipack Bottle IVPUSH 03/25/21 00:09 100 ml ONETIME STA Administration Methylprednisolone Sodium Succinate 40 mg 03/25/21 03:15 03/25/21 03:44 Methylprednisolone Sodium Succinate 40 Mg/1 Ml Sdv IVPUSH 03/25/21 03:16 40 mg ONETIME ONE Administration Morphine Sulfate 2 mg 03/25/21 01:57 03/25/21 02:11 Morphine 2 Mg/Ml Syringe IVPUSH 03/25/21 01:58 2 mg ONETIME ONE Administration Departure - Departure Time of Disposition: 03:42 Disposition: Admitted As Inpatient 68 Condition: Serious Clinical Impression: Cholecystitis, Hypoxia, Pulmonary nodule - Discharge Information Instructions: Pulmonary Nodule, [id number] Referrals: Chapin Bliss MD [Primary Care Provider] - Forms: ED Department Discharge Sepsis Event Note (ED) - Evaluation Sepsis Screening Result: No Definite Risk - Focused Exam Vital Signs: Vital Signs Temp Pulse Resp BP Pulse Ox 03/25/21 05:02 64 20 153/80 H 93 L 03/25/21 03:58 89 19 147/85 H 93 L 03/25/21 01:36 77 20 165/91 H 94 L 03/25/21 00:27 80 20 165/91 H 93 L 03/24/21 22:15 92 L 03/24/21 22:05 36.2 C 82 24 H 154/80 H 76 L - My Orders Last 24 Hours: My Active Orders 03/24/21 22:58 EKG Documentation Completion [RC] STAT 03/25/21 00:59 RT Aerosol Therapy [RC] ASDIRECTED 03/25/21 03:15 Lactated Ringers [Ringers, Lactated] 1,000 ml IV ASDIRECTED 03/25/21 03:26 RT Aerosol Therapy [RC] ASDIRECTED 03/25/21 03:30 Albuterol/Ipratropium [DuoNeb 3.0-0.5 MG/3 ML] 3 ml NEB Q2H 03/25/21 03:41 Admission Status [Patient Status] [ADT] Stat 03/25/21 Breakfast NPO [Nothing Per Oral Diet] [DIET] - Assessment/Plan Last 24 Hours: My Active Orders 03/24/21 22:58 EKG Documentation Completion [RC] STAT 03/25/21 00:59 RT Aerosol Therapy [RC] ASDIRECTED 03/25/21 03:15 Lactated Ringers [Ringers, Lactated] 1,000 ml IV ASDIRECTED 03/25/21 03:26 RT Aerosol Therapy [RC] ASDIRECTED 03/25/21 03:30 Albuterol/Ipratropium [DuoNeb 3.0-0.5 MG/3 ML] 3 ml NEB Q2H 03/25/21 03:41 Admission Status [Patient Status] [ADT] Stat 03/25/21 Breakfast NPO [Nothing Per Oral Diet] [DIET]
[2021-03-25] MEDS: Albuterol/Ipratropium 3.0-0.5 MG/3 ML Neb Soln NEB SCH ×5 (03:48→13:42)
[2021-03-25] MEDS ORDERED: Ondansetron 4 MG/2 ML SDV IVPUSH PRN (08:20)
--- NOTE | 2021-03-25 08:36 | PCM.HP.2 ---
H&P History of Present Illness - General Date of Service: 03/25/21 Admit Problem/Dx: Admission Diagnosis/Problem Admission Diagnosis/Problem Acute cholecystitis Source of Information: Patient, Family History Limitations: Reports: No Limitations - History of Present Illness Initial Comments - Free Text/Narative: This 80 year old with pmh of BPH, HTN, DM Type 2 and past smoker presented to the ED with complaints of "pain all over". Patient reported he intermittently have RUQ abdominal pain which then worsened and was constant with radiation all over his abdomen and to his back. The patient states that the pain starts around his waist, goes to his right side and radiates to his back and all over including his chest, back, legs. He describes it as intermittent and it p ossibly like a knife all over. He denies fevers and chills. He denies any chest pain, shortness of breath, diaphoresis, nausea or vomiting. He states that he cannot sleep when he cannot do anything because of the pain. He rates his pain as 8 out of 10 and it is worse when he takes a deep breath. He states there is no relieving factors as he has tried ibuprofen. In addition he states that his legs are swollen and he is unable to get them to go down. He denies any history of CHF, CAD. He reports he is a past smoker, no alcohol use and no recreational drug use. History very limited secondary to patient being lethargic. History obtained from ER note. In the ER no leukocytosis noted at 7,000 hemoglobin 18.5 platelet count 139,000. Sodium 140 potassium 4.2. BUN 25 creatinine 1.1. Glucose 156. UA negative Covid swab negative. Upon arrival to the ER patient was hypoxic 76% placed on 6 L and maintained 92%. Otherwise blood pressure and heart rate and temp stable in the ER. Patient not complaining of any overt shortness of breath. Abdominal CT as well as CTA of the chest obtained atelectasis noted in both lung bases on abdominal CT. Gallbladder shows questionable wall thickening on CT. Otherwise unremarkable. CTA of the chest obtained due to severity of hypoxia. This revealed normal cardiovascular structures no pulmonary embolism heart size is normal. No sign of the aneurysm or dissection in the thoracic aorta. Lungs again show dependent atelectasis emphysema also a 3 mm pulmonary nodule right upper lobe. Patient was treated with IV fluids along with Zosyn and Solu-Medrol for possible COPD exacerbation he was also treated with DuoNeb's. Patient was admitted for acute hypoxic respiratory failure secondary to suspected COPD exacerbation and acute cholecystitis. Regarding acute cholecystitis, Dr. Cristobal on-call surgeon was called from the ER. She was made aware of patient and recommended abdominal ultrasound and she would see patient in the morning. Upon arrival to MedSurg unit patient had significant decrease in mentation became more lethargic and was requiring up to 15 L nonrebreather to maintain sats at 90%. Hospitalist provider, ellen, notified at this time and at bedside to evaluate patient. Dr. Cristobal at bedside at this time as well reports that she feels this patient is not stable enough for any surgical intervention within our facility due to acute hypoxic respiratory failure and COPD. Please see her consultation for evaluation. ABG and chest x-ray obtained this morning. Initial ABG showed pH 7.2 CO2 82 HCO3 34 34, showing respiratory acidosis. Discussed patient with Dr. Conley this time will transfer to ICU and start BiPAP. Daughter Juany notified via telephone [phone]. She was notified of respiratory distress as well as transfer to ICU and likely transfer out of facility due to increasing respiratory needs. daughter arrived at bedside shortly after. Abdomen Pain Score (Numeric/FACES): 8 - Related Data Allergies/Adverse Reactions: Allergies Allergy/AdvReac Type Severity Reaction Status Date / Time Penicillins Allergy Hives Verified 03/24/21 22:02 Home Medications: Home Meds Tamsulosin [Flomax] 0.4 mg PO BEDTIME 10/17/18 [History] hydroCHLOROthiazide [Microzide] 25 mg PO BEDTIME 10/17/18 [History] Aspirin 81 mg PO BEDTIME 10/18/18 [History] Benazepril HCl [Lotensin] 20 mg PO BEDTIME 10/18/18 [History] Naproxen 500 mg PO BID PRN 10/18/18 [History] allopurinoL [Zyloprim] 300 mg PO BEDTIME 10/18/18 [History] atorvaSTATin [Lipitor] 20 mg PO BEDTIME 10/18/18 [History] Latanoprost 1 drop EYEBOTH BEDTIME 10/23/18 [History] metFORMIN HCl [Metformin HCl] 500 mg PO DAILY@0800 10/23/18 [History] timoloL maleate [Timoptic 0.5% Ophth Soln] 1 drop EYELF BID 10/23/18 [History] Fluticasone/Salmeterol [Advair 250-50] 2 puff INH BID 30 Days #1 diskus 10/25/18 [Rx] Lactated Ringers [Ringers, Lactated] 125 ml IV Q8H bag 03/25/21 [Rx] Levofloxacin/Dextrose 5%-Water [Levaquin in D5W 750 MG/150 ML] 750 mg IV Q24H bag 03/25/21 [Rx] metroNIDAZOLE/Normal Saline [Flagyl in NS 500 MG/100 ML] 500 mg IV QID bag 03/25/21 [Rx] Past Medical History HEENT History: Reports: None Cardiovascular History: Reports: High Cholesterol, Hypertension Respiratory History: Reports: None Gastrointestinal History: Reports: None Genitourinary History: Reports: BPH Musculoskeletal History: Reports: None Neurological History: Reports: Neuropathy, Peripheral Psychiatric History: Reports: None Endocrine/Metabolic History: Reports: Other (See Below) Other Endocrine/Metabolic History: pre-diabetic Hematologic History: Reports: None Immunologic History: Reports: None Oncologic (Cancer) History: Reports: None Dermatologic History: Reports: None - Infectious Disease History Infectious Disease History: Reports: Chicken Pox, Measles, Mumps - Past Surgical History HEENT Surgical History: Reports: Cataract Surgery Cardiovascular Surgical History: Reports: None Musculoskeletal Surgical History: Reports: None Social & Family History - Family History Family Medical History: No Pertinent Family History - Tobacco Use Tobacco Use Status *Q: Former Tobacco User Used Tobacco, but Quit: Yes Month/Year Tobacco Last Used: December 03 1993 - Caffeine Use Caffeine Use: Reports: None Caffeine Use Comment: very rarely a soda - Recreational Drug Use Recreational Drug Use: No - Living Situation & Occupation Living situation: Reports: , with Family Occupation: Retired H&P Review of Systems - Review of Systems: Review Of Systems: Unable To Obtain Reason Not Obtained: patient lethargic and easily falling asleep Exam - Exam Exam: See Below - Vital Signs Vital Signs: Last Vital Signs Temp 97.2 F 03/24/21 22:05 Pulse 81 03/25/21 06:41 Resp 19 03/25/21 06:41 BP 137/76 03/25/21 06:41 Pulse Ox 94 L 03/25/21 06:41 Weight: 114.022 kg - Exam Quality Assessment: Supplemental Oxygen General: Alert, Cooperative, Moderate Distress, Lethargic Lungs: Decreased Breath Sounds (bibasilar) Cardiovascular: Regular Rate, Regular Rhythm GI/Abdominal Exam: Normal Bowel Sounds, Soft, Distended, Tender (RUQ) Extremities: Normal Inspection, Normal Range of Motion, Non-Tender, No Pedal Edema Neuro Extensive - Mental Status: Alert Psychiatric: Alert (but lethargic, able to speak but falls asleep quickly) - Patient Data Lab Results Last 24 hrs: Laboratory Results - last 24 hr 03/24/21 03/24/21 03/24/21 Range/Units 22:20 22:20 22:20 WBC 7.93 (4.0-11.0) K/uL RBC 5.92 H (4.50-5.90) M/uL Hgb 18.5 H (13.0-17.0) g/dL Hct 59.2 H (38.0-50.0) % MCV 100.0 H (80.0-98.0) fL MCH 31.3 (27.0-32.0) pg MCHC 31.3 (31.0-37.0) g/dL RDW Std Deviation 62.3 H (28.0-62.0) fl RDW Coeff of Edson 17 H (11.0-15.0) % Plt Count 139 L (150-400) K/uL MPV 10.60 (7.40-12.00) fL Neut % (Auto) 66.4 (48.0-80.0) % Lymph % (Auto) 21.8 (16.0-40.0) % Summers % (Auto) 10.0 (0.0-15.0) % Eos % (Auto) 1.8 (0.0-7.0) % Baso % (Auto) 0.0 (0.0-1.5) % Neut # (Auto) 5.3 (1.4-5.7) K/uL Lymph # (Auto) 1.7 (0.6-2.4) K/uL Summers # (Auto) 0.8 (0.0-0.8) K/uL Eos # (Auto) 0.1 (0.0-0.7) K/uL Baso # (Auto) 0.0 (0.0-0.1) K/uL Nucleated RBC % 0.0 /100WBC Nucleated RBCs # 0 K/uL INR 1.14 APTT 27.9 (18.6-31.3) SEC Sodium 140 (136-148) mmol/L Potassium 4.2 (3.5-5.1) mmol/L Chloride 101 (98-107) mmol/L Carbon Dioxide 31.9 (21.0-32.0) mmol/L BUN 25 H (7.0-18.0) mg/dL Creatinine 1.1 (0.8-1.3) mg/dL Est Cr Clr Drug Dosing 55.35 mL/min Estimated GFR (MDRD) > 60.0 ml/min Glucose 156 H (74-106) mg/dL Calcium 8.8 (8.5-10.1) mg/dL Phosphorus 3.7 (2.6-4.7) mg/dL Magnesium 2.0 (1.8-2.4) mg/dL Total Bilirubin 0.8 (0.2-1.0) mg/dL AST 25 (15-37) IU/L ALT 24 (14-63) IU/L Alkaline Phosphatase 105 (46-116) U/L Troponin I < 0.050 (0.000-0.056) ng/mL B-Natriuretic Peptide (<100) PG/ML Total Protein 7.6 (6.4-8.2) g/dL Albumin 3.0 L (3.4-5.0) g/dL Globulin 4.6 H (2.6-4.0) g/dL Albumin/Globulin Ratio 0.7 L (0.9-1.6) Free T4 (0.76-1.46) ng/dL TSH 3rd Generation 5.45 H (0.36-3.74) uIU/mL Urine Color Urine Appearance Urine pH (5.0-8.0) Ur Specific Conrath (1.001-1.035) Urine Protein (NEGATIVE) mg/dL Urine Glucose (UA) (NEGATIVE) mg/dL Urine Ketones (NEGATIVE) mg/dL Urine Occult Blood (NEGATIVE) Urine Nitrite (NEGATIVE) Urine Bilirubin (NEGATIVE) Urine Urobilinogen (<2.0) EU/dL Ur Leukocyte Esterase (NEGATIVE) Urine RBC (0-2/HPF) Urine WBC (0-5/HPF) Ur Epithelial Cells (NONE-FEW) Urine Bacteria (NEGATIVE) SARS-CoV-2 RNA (LEROY) (NEGATIVE) 03/24/21 03/24/21 03/24/21 Range/Units 22:20 22:20 23:10 WBC (4.0-11.0) K/uL RBC (4.50-5.90) M/uL Hgb (13.0-17.0) g/dL Hct (38.0-50.0) % MCV (80.0-98.0) fL MCH (27.0-32.0) pg MCHC (31.0-37.0) g/dL RDW Std Deviation (28.0-62.0) fl RDW Coeff of Edson (11.0-15.0) % Plt Count (150-400) K/uL MPV (7.40-12.00) fL Neut % (Auto) (48.0-80.0) % Lymph % (Auto) (16.0-40.0) % Summers % (Auto) (0.0-15.0) % Eos % (Auto) (0.0-7.0) % Baso % (Auto) (0.0-1.5) % Neut # (Auto) (1.4-5.7) K/uL Lymph # (Auto) (0.6-2.4) K/uL Summers # (Auto) (0.0-0.8) K/uL Eos # (Auto) (0.0-0.7) K/uL Baso # (Auto) (0.0-0.1) K/uL Nucleated RBC % /100WBC Nucleated RBCs # K/uL INR APTT (18.6-31.3) SEC Sodium (136-148) mmol/L Potassium (3.5-5.1) mmol/L Chloride (98-107) mmol/L Carbon Dioxide (21.0-32.0) mmol/L BUN (7.0-18.0) mg/dL Creatinine (0.8-1.3) mg/dL Est Cr Clr Drug Dosing mL/min Estimated GFR (MDRD) ml/min Glucose (74-106) mg/dL Calcium (8.5-10.1) mg/dL Phosphorus (2.6-4.7) mg/dL Magnesium (1.8-2.4) mg/dL Total Bilirubin (0.2-1.0) mg/dL AST (15-37) IU/L ALT (14-63) IU/L Alkaline Phosphatase (46-116) U/L Troponin I (0.000-0.056) ng/mL B-Natriuretic Peptide 22 (<100) PG/ML Total Protein (6.4-8.2) g/dL Albumin (3.4-5.0) g/dL Globulin (2.6-4.0) g/dL Albumin/Globulin Ratio (0.9-1.6) Free T4 0.56 L (0.76-1.46) ng/dL TSH 3rd Generation (0.36-3.74) uIU/mL Urine Color YELLOW Urine Appearance CLEAR Urine pH 6.0 (5.0-8.0) Ur Specific Conrath 1.025 (1.001-1.035) Urine Protein 30 H (NEGATIVE) mg/dL Urine Glucose (UA) NEGATIVE (NEGATIVE) mg/dL Urine Ketones NEGATIVE (NEGATIVE) mg/dL Urine Occult Blood SMALL H (NEGATIVE) Urine Nitrite NEGATIVE (NEGATIVE) Urine Bilirubin NEGATIVE (NEGATIVE) Urine Urobilinogen 0.2 (<2.0) EU/dL Ur Leukocyte Esterase NEGATIVE (NEGATIVE) Urine RBC 0-2 (0-2/HPF) Urine WBC 0-2 (0-5/HPF) Ur Epithelial Cells RARE (NONE-FEW) Urine Bacteria FEW (NEGATIVE) SARS-CoV-2 RNA (LEROY) (NEGATIVE) 03/25/21 Range/Units 03:35 WBC (4.0-11.0) K/uL RBC (4.50-5.90) M/uL Hgb (13.0-17.0) g/dL Hct (38.0-50.0) % MCV (80.0-98.0) fL MCH (27.0-32.0) pg MCHC (31.0-37.0) g/dL RDW Std Deviation (28.0-62.0) fl RDW Coeff of Edson (11.0-15.0) % Plt Count (150-400) K/uL MPV (7.40-12.00) fL Neut % (Auto) (48.0-80.0) % Lymph % (Auto) (16.0-40.0) % Summers % (Auto) (0.0-15.0) % Eos % (Auto) (0.0-7.0) % Baso % (Auto) (0.0-1.5) % Neut # (Auto) (1.4-5.7) K/uL Lymph # (Auto) (0.6-2.4) K/uL Summers # (Auto) (0.0-0.8) K/uL Eos # (Auto) (0.0-0.7) K/uL Baso # (Auto) (0.0-0.1) K/uL Nucleated RBC % /100WBC Nucleated RBCs # K/uL INR APTT (18.6-31.3) SEC Sodium (136-148) mmol/L Potassium (3.5-5.1) mmol/L Chloride (98-107) mmol/L Carbon Dioxide (21.0-32.0) mmol/L BUN (7.0-18.0) mg/dL Creatinine (0.8-1.3) mg/dL Est Cr Clr Drug Dosing mL/min Estimated GFR (MDRD) ml/min Glucose (74-106) mg/dL Calcium (8.5-10.1) mg/dL Phosphorus (2.6-4.7) mg/dL Magnesium (1.8-2.4) mg/dL Total Bilirubin (0.2-1.0) mg/dL AST (15-37) IU/L ALT (14-63) IU/L Alkaline Phosphatase (46-116) U/L Troponin I (0.000-0.056) ng/mL B-Natriuretic Peptide (<100) PG/ML Total Protein (6.4-8.2) g/dL Albumin (3.4-5.0) g/dL Globulin (2.6-4.0) g/dL Albumin/Globulin Ratio (0.9-1.6) Free T4 (0.76-1.46) ng/dL TSH 3rd Generation (0.36-3.74) uIU/mL Urine Color Urine Appearance Urine pH (5.0-8.0) Ur Specific Conrath (1.001-1.035) Urine Protein (NEGATIVE) mg/dL Urine Glucose (UA) (NEGATIVE) mg/dL Urine Ketones (NEGATIVE) mg/dL Urine Occult Blood (NEGATIVE) Urine Nitrite (NEGATIVE) Urine Bilirubin (NEGATIVE) Urine Urobilinogen (<2.0) EU/dL Ur Leukocyte Esterase (NEGATIVE) Urine RBC (0-2/HPF) Urine WBC (0-5/HPF) Ur Epithelial Cells (NONE-FEW) Urine Bacteria (NEGATIVE) SARS-CoV-2 RNA (LEROY) NEGATIVE (NEGATIVE) Result Diagrams: 03/25/21 09:15 03/25/21 09:15 Sepsis Event Note - Evaluation Sepsis Screening Result: No Definite Risk - Focused Exam Vital Signs: Vital Signs Temp Pulse Resp BP Pulse Ox 03/25/21 06:41 81 19 137/76 94 L 03/25/21 06:04 82 18 142/82 H 93 L 03/25/21 05:02 64 20 153/80 H 93 L 03/25/21 03:58 89 19 147/85 H 93 L 03/25/21 01:36 77 20 165/91 H 94 L 03/25/21 00:27 80 20 165/91 H 93 L 03/24/21 22:15 92 L 03/24/21 22:05 97.2 F 82 24 H 154/80 H 76 L - Problem List (1) Acute cholecystitis SNOMED Code(s): 83625633 ICD Code: K81.0 - ACUTE CHOLECYSTITIS Status: Acute Current Visit: Yes (2) Acute respiratory failure with hypoxia and hypercapnia SNOMED Code(s): 906811540 ICD Code: J96.01 - ACUTE RESPIRATORY FAILURE WITH HYPOXIA; J96.02 - ACUTE RESPIRATORY FAILURE WITH HYPERCAPNIA Status: Acute Current Visit: Yes (3) HNASEL on CPAP SNOMED Code(s): 20556178 ICD Code: G47.33 - OBSTRUCTIVE SLEEP APNEA (ADULT) (PEDIATRIC); Z99.89 - DEPENDENCE ON OTHER ENABLING MACHINES AND DEVICES Status: Acute Current Visit: Yes (4) COPD (chronic obstructive pulmonary disease) SNOMED Code(s): 18213814 ICD Code: J44.9 - CHRONIC OBSTRUCTIVE PULMONARY DISEASE, UNSPECIFIED Status: Acute Current Visit: Yes (5) Pulmonary nodule SNOMED Code(s): 096816532 ICD Code: R91.1 - SOLITARY PULMONARY NODULE Status: Acute Current Visit: Yes (6) BPH (benign prostatic hyperplasia) SNOMED Code(s): 796444673 ICD Code: N40.0 - BENIGN PROSTATIC HYPERPLASIA WITHOUT LOWER URINRY TRACT SYMP Status: Chronic Priority: Medium Current Visit: No Qualifiers: Lower urinary tract symptom presence: symptoms present Lower urinary tract symptom detail: urinary hesitancy Qualified Code(s): N40.1 - Benign prostatic hyperplasia with lower urinary tract symptoms; R39.11 - Hesitancy of micturition (7) Hypertension SNOMED Code(s): 66731108 ICD Code: I10 - ESSENTIAL (PRIMARY) HYPERTENSION Status: Chronic Priority: High Current Visit: No Qualifiers: Hypertension type: essential hypertension (8) Obesity (BMI 30-39.9) SNOMED Code(s): 976647934, 047330628 ICD Code: E66.9 - OBESITY, UNSPECIFIED Status: Chronic Priority: Medium Current Visit: No (9) Dyslipidemia associated with type 2 diabetes mellitus SNOMED Code(s): 41472837 ICD Code: E11.69 - TYPE 2 DIABETES MELLITUS WITH OTHER SPECIFIED COMPLICATION; E78.5 - HYPERLIPIDEMIA, UNSPECIFIED Status: Resolved Priority: High Current Visit: No (10) Community acquired pneumonia SNOMED Code(s): 703741049 ICD Code: J18.9 - PNEUMONIA, UNSPECIFIED ORGANISM Status: Acute Current Visit: Yes Problem List Initiated/Reviewed/Updated: Yes Orders Last 24hrs: Active Orders 24 hr Category Date Time Status Admission Status [Patient Status] [ADT] Stat ADT 03/25/21 03:41 Active Transfer Patient (Change bed) [ADT] Routine ADT 03/25/21 08:14 Ordered Cardiac Monitoring [RC] CONTINUOUS Care 03/25/21 08:23 Active EKG Documentation Completion [RC] STAT Care 03/24/21 22:58 Active Intake and Output [RC] QSHIFT Care 03/25/21 08:23 Active Oxygen Therapy [RC] PRN Care 03/25/21 08:23 Active RT Aerosol Therapy [RC] ASDIRECTED Care 03/25/21 00:59 Active RT Aerosol Therapy [RC] ASDIRECTED Care 03/25/21 03:26 Active VTE/DVT Education [RC] PER UNIT ROUTINE Care 03/25/21 08:23 Active Vital Signs [RC] Q1HR Care 03/25/21 08:23 Active NPO [Nothing Per Oral Diet] [DIET] Diet 03/25/21 Breakfast Active Chest 1V Frontal [CR] Stat Exams 03/25/21 08:13 Ordered ABG [BLOOD GAS ARTERIAL] [BG] Routine Lab 03/25/21 08:20 Received Albuterol/Ipratropium [DuoNeb 3.0-0.5 MG/3 ML] Med 03/25/21 03:30 Active 3 ml NEB Q2H Lactated Ringers [Ringers, Lactated] 1,000 ml Med 03/25/21 03:15 Active IV ASDIRECTED Ondansetron [Zofran] Med 03/25/21 08:20 Active 4 mg IVPUSH Q4H PRN Resuscitation Status Routine Resus Stat 03/25/21 08:20 Ordered Medication Orders Albuterol/Ipratropium (Albuterol/Ipratropium 3.0-0.5 Mg/3 Ml Neb Soln) 3 ml NEB Q2H JANAE Last Admin: 03/25/21 07:52 Dose: 3 ml Documented by: Admin: 03/25/21 06:14 Dose: 3 ml Documented by: Admin: 03/25/21 03:48 Dose: 3 ml Documented by: VENESSA Lactated Ringer's (Ringers, Lactated) 1,000 mls @ 120 mls/hr IV ASDIRECTED JANAE Ondansetron HCl (Ondansetron 4 Mg/2 Ml Sdv) 4 mg IVPUSH Q4H PRN PRN Reason: Nausea Assessment/Plan Comment:: This 80-year-old male admitted with acute hypercapnic hypoxic respiratory failure and acute cholecystitis 1. Acute hypercapnic hypoxic respiratory failure/CAP -Chest x-ray after decompensation obtained showing atelectasis versus bibasilar infiltrates bilaterally -Patient placed on BiPAP due to respiratory acidosis noted on ABG. -Initial settings 10/5 with 100% FiO2. Repeat ABG 1 hour later showed increasing CO2 pH stable. BiPAP settings at that time changed to 13/5 FiO2 60%. With acute monitoring patient was then changed to 15/5 at this time 60 plan FiO2. -Patient remains somewhat sleepy and lethargic. Tolerating BiPAP well. -Noted eICU's note agree and appreciate assistance with patient. -Due to Zosyn allergy and recent rash per daughter's history. Will stop Zosyn. -Start Levaquin 750 IV daily -Lactic acid normal blood cultures obtained, at this time sepsis is not suspected -We will repeat ABG at noon. Discussed with Dr. Conley as well as Dr. Gerard Westbrook that if ABG remains the same patient will likely need intubation and transfer to higher level of care -Daughter Juany remains at bedside and has been updated on treatment plan and course of action with transfer likely and possible intubation. -Prior to patient becoming more lethargic I did discuss with him CODE STATUS and he was agreeable at the time to CPR as well as mechanical ventilation and intubation if needed. 2. Acute cholecystitis -Continue Levaquin and Flagyl -Repeat CMP shows no sniffing elevation in bilirubin or other LFTs -When he does wake up he does complain of right upper quadrant pain. -Remain n.p.o. -IV fluids LR 125 -Again Dr. Cristobal was consulted with current respiratory status she recommends patient to be transferred for cholecystostomy tube as this is unable to be performed within our facility. 3. DM type II -NovoLog sliding scale every 6 hours due to n.p.o. status VTE prophylaxis: Holding off at this time as patient may need surgical intervention, SCDs in place CODE STATUS: Full code as discussed with patient Dispo: Probable transfer to higher level of care DISCHARGE PLAN: Repeat ABG returned with no change. pH 7.27 PCO2 77. Patient mentation improving slightly. Patient needing higher level of care secondary to acute hypoxic/hypercapnic respiratory failure secondary to CAP/COPD and further surgical evaluation for acute cholecystitis with possible cholecystostomy tube placement. Dr Conley at bedside and discussed with patient along with family. Patient more alert now but again needs further higher level of care. Family and patiet in agreement for transfer at this time. Discussed case with CLARKE Meyers MD at [facility]. He has kindly accepted patient for transfer at this time. Patient to be transferred via flight to [place] at this time.
[2021-03-25] MEDS ORDERED: 50% Dextrose in Water 50 ML Syringe IVPUSH PRN (09:03)
[2021-03-25] MEDS ORDERED: Glucagon,Human Recombinant 1 MG Vial IM PRN (09:03)
--- NOTE | 2021-03-25 09:10 | CR ---
Indication: Worsening hypoxia Comparison: CT chest March 24, 2021 Technique: Single AP view chest Findings: There is hyperinflation and chronic interstitial change. There are again seen airspace opacities in the left greater than right lung bases likely representing persistent infiltrates. There is no pneumothorax. The cardiac silhouette is mildly prominent. The bony thorax is grossly intact. Impression: Persistent bibasilar airspace opacities likely representing infiltrates versus atelectasis. Dictated by Steve Patel MD @ 03/25/2021 9:08:[address] Steve Patel @ Mar 25 2021 9:08AM
[2021-03-25] MEDS ORDERED: Levofloxacin/Dextrose 5%-Water 750 MG in Premix Bag 1 BAG IV SCH (09:15)
--- NOTE | 2021-03-25 09:38 | PCM.SN.2 ---
- Free Text/Narrative Note: Patient is a 80 year old male with a history of DM II, COPD with chronic hypoxic respiratory failure, chronic cough, BPH, HLD, HTN, GERD who presented to the ER last night with pain throughout his abdomen. He was noted to be hypoxic on arrival with O2 sats of 76% on RA. He was worked up for possible PE, however this was negative. He had a CT abdomen pelvis that suggested possible gallbladder wall thickening. He had a RUQ US that showed biliary sludge, stones, gallbladder wall thickening, and positive US martinez's sign suggesting acute cholecytitis. He was admitted to medicine. This morning the patient is on 15L non-rebreather face mask and has increased work of breathing. He is sating 90% even after nebulizer treatments. His abdomen is soft and he has no martinez's sign this morning. He does complain of subjective tenderness with deep palpation in the RUQ. His venous pCO2 is 82 and CXR shows infiltrates. Medicine is concerned for pneumonia. Given his current respiratory status he would not be a candidate for surgery at our facility. He may need a cholecystostomy tube until he stabilizes. I recommended that he be transferred to a facility with greater resources for further management.
[2021-03-25 09:55] LABS: CARBON DIOXIDE,CO2 34.4 mmol/L (21.0-32.0); POTASSIUM,K 4.8 mmol/L (3.5-5.1)
--- NOTE | 2021-03-25 10:52 | PN ---
BEV Physician - Brief Progress [id number]/14/2021 10:38[facility] Qiana Yao ND - SHREYAS (JEREMY) - DEMIAN WETZEL, SRDate of Service 03/25/2021 10:38HP I/Events of Note eICU admission [id number] male with past history significant for DM 2, HTN and BPH who presented to hospital with abdominal pain. Patient mentions he has been having right upper q uadrant abdominal pain with radiation diffusely and describes it as knife like sensation with 8 out o f 10 in intensity. He also mentions of associated bilateral lower extremity edema. On arrival to th e ED patient was noted to be hypoxic requiring 6 L nasal cannula with otherwise stable vitals. Shameka timothy's work-up in the ED did reveal acute cholecystitis for which he was initiated on Zosyn along with IV fluids. Surgery was consulted and patient was admitted to the ICU for further evaluation.Patient seen on camera, currently on BiPAP, appears to be comfortable at this time without any distress.Vital signs reviewed. BiPAP 10/5, FiO2 100%Labs/EMR reviewedAcute cholecystitisAcute hypoxic/hypercapnic respiratory failurePlan-Surgery consulted and recommend cholecystostomy tube-Agree with empiric antib iotic coverage (blood culture sent and pending). Recommend obtaining procalcitonin, respiratory cult ure, urine Legionella/strep.-Agree with IV fluids-Agree with pain control-Agree with scheduled nebs g iven concern for COPD exacerbation-Agree with BiPAP. Recommend keeping delta of 5 and increasing IPA P/EPAP by 2 if patient has worsening hypoxia; if patient has worsening hypercapnia on repeat ABG anshul mmend increasing IPAP only to facilitate further CO2 clearance. We can assist in this regard as sharan red by primary team. (CT PE without embolism and did show dependent atelectasis, thus hypoxia likely driven by significant pain/atelectasis along with COPD exacerbation).Thank you for allowing us to pa rticipate in the care of this patient. Please do not hesitate to contact eICU for any questions, clar ification or assistance with implementation of above.Interventions Major-Hypercarbia - evaluation and management, Hypoxemia - evaluation and management, Infection - evaluation and management, Respirator y failure - evaluation and management 10: 52
[2021-03-25] MEDS ORDERED: Insulin Aspart 100 Units/ML 3 ML Pen SUBCUT SCH (12:00)
[2021-03-25] MEDS ORDERED: metroNIDAZOLE/Normal Saline 500 MG in Premix Bag 1 BAG IV SCH (12:00)
== END 2021-03-25 14:05 | DRG 444 ==
LOC: MW.ED 21:43 → MW.MS 03-25 03:41 → MW.ICU 03-25 08:21
PROVIDERS: ADMIT Surgery; ATTEND Internal Medicine
PROC: 5A09357 Assistance with Respiratory Ventilation, Less than 24 Consecutive Hours, Continuous Positive Airway Pressure (ICD-10-PCS; principal; 2021-03-24)
DX: K81.9 Cholecystitis, unspecified (principal); R09.02 Hypoxemia; I26.99 Other pulmonary embolism without acute cor pulmonale; K81.0 Acute cholecystitis; J96.01 Acute respiratory failure with hypoxia; N40.0 Benign prostatic hyperplasia without lower urinary tract symptoms; G62.9 Polyneuropathy, unspecified; R73.03 Prediabetes; Z87.891 Personal history of nicotine dependence; J18.9 Pneumonia, unspecified organism; J96.02 Acute respiratory failure with hypercapnia; J44.1 Chronic obstructive pulmonary disease with (acute) exacerbation; E87.2 Acidosis; Z20.822 Contact with and (suspected) exposure to COVID-19; I10 Essential (primary) hypertension; F17.210 Nicotine dependence, cigarettes, uncomplicated; E78.00 Pure hypercholesterolemia, unspecified; E11.42 Type 2 diabetes mellitus with diabetic polyneuropathy; G47.33 Obstructive sleep apnea (adult) (pediatric); R91.1 Solitary pulmonary nodule; N40.1 Benign prostatic hyperplasia with lower urinary tract symptoms; R39.11 Hesitancy of micturition; E78.5 Hyperlipidemia, unspecified; Z88.0 Allergy status to penicillin; Z98.49 Cataract extraction status, unspecified eye; Z79.82 Long term (current) use of aspirin; Z79.899 Other long term (current) drug therapy; Z79.84 Long term (current) use of oral hypoglycemic drugs
CPT/HCPCS: 36415; 71275; 74177; 76705; 80053; 81001; 83735; 83880; 84100; 84439; 84443; 84484; 85025; 85610; 85730; 93005; J2270; Q9967; U0002; 36600; 71045; 71045-26; 82803; 82947; 83605; 87040; 94640; 94660; 96365; 96375; 99291; J1815-GY; J1956; J2543; J2920; J3490; J7120; J7620-GY

== ENCOUNTER 2021-05-16 18:35 | Emergency (ER) | payer MEDICARE, OTHER ==
--- NOTE | 2021-05-16 21:25 | EDM.PDOC ---
ED HPI GENERAL MEDICAL PROBLEM - General Chief Complaint: Skin Complaint Stated Complaint: NEEDS A BANDAGE CHANGED Time Seen by Provider: 05/16/21 19:28 - History of Present Illness INITIAL COMMENTS - FREE TEXT/NARRATIVE: HISTORY AND PHYSICAL: History of present illness: This is a 80-year-old gentleman with a history significant for cholecystitis who currently has a biliary drain in place who presents ER today requesting changing of his dressing of his biliary drain secondary to it being in place for a couple weeks and currently he reports there were some leakage. Patient denies any recent fevers, shakes, chills, nausea, vomiting, diarrhea, dysuria, frequency, urgency, chest pain, shortness of breath, abdominal pain. Patient ports he has been tolerating p.o. solids and liquids well. Patient has no other complaints other than requesting a change of the dressing of his biliary drain. Review of systems: As per history of present illness and below otherwise all systems reviewed and negative. Past medical history: As per history of present illness and as reviewed below otherwise noncontributory. Surgical history: As per history of present illness and as reviewed below otherwise noncontributory. Social history: No reported history of drug abuse. Family history: As per history of present illness and as reviewed below otherwise noncontributory. Physical exam: This patient was seen and evaluated during the 2019 SARS-CoV-2 novel coronavirus pandemic period. Community viral transmission is ongoing at time of this encounter and the emergency department is operating under pandemic response procedures. Constitutional: Patient is oriented to person, place, and time. Appears well- developed and well-nourished. No distress. HEENT: Moist mucous membranes Head: Normocephalic and atraumatic Eyes: Right eye exhibits no discharge. Left eye exhibits no discharge. No scleral icterus Neck: Normal range of motion. No tracheal deviation present. Cardiovascular: Normal rate and regular rhythm. Pulmonary: Effort normal, no respiratory distress. Abd: Soft, nondistended, no rebound/guarding, no psoas or obturator signs, no tenderness at Mcberney's point, no Brar's sign. Pt does not present with an exam that would be consistent with an acute surgical abdomen at this time Musculoskeletal: Normal range of motion Neurologic: Alert and oriented to person, place and time. Skin: [place], warm and dry. Psychiatric: Normal mood and affect. Behavior is normal. Judgment and thought content normal. Nursing note and vital signs have been reviewed Patient's ER physical exam significant for a biliary drain identified in his right upper quadrant with active drainage of biliary fluid. The dressing itself was removed by the patient. There is no purulent discharge. No surrounding erythema. No tenderness to palpation. Diagnostics: [] Therapeutics: [] Assessment and plan: 80-year-old gentleman who presents ER today requesting change of dressing of his biliary drain. We will attempt to obtain the appropriate dressing change for the patient and we will change it for him if we are able to. Patient is not exhibiting any other concerns or symptoms at this time. Patient will be stable for discharge to home with continuing of his outpatient follow-up. Reassessment at the time of disposition demonstrates that the patient is in no acute distress. The patient has remained stable throughout the entire ED visit and is without objective evidence for acute process requiring urgent intervention or hospitalization. The patient is stable for discharge, counseling is provided as documented above, discussed symptomatic treatment and specific conditions for return. I have spoken with the patient/caregiver and discussed todays findings, in addition to providing specific details for the plan of care. Questions are answered and there is agreement with the plan. Definitive disposition and diagnosis as appropriate pending reevaluation and review of above. - Related Data Allergies Allergy/AdvReac Type Severity Reaction Status Date / Time Penicillins Allergy Hives Verified 03/24/21 22:02 Home Meds: Home Meds Tamsulosin [Flomax] 0.4 mg PO BEDTIME 10/17/18 [History] hydroCHLOROthiazide [Microzide] 25 mg PO BEDTIME 10/17/18 [History] Aspirin 81 mg PO BEDTIME 10/18/18 [History] Benazepril HCl [Lotensin] 20 mg PO BEDTIME 10/18/18 [History] Naproxen 500 mg PO BID PRN 10/18/18 [History] allopurinoL [Zyloprim] 300 mg PO BEDTIME 10/18/18 [History] atorvaSTATin [Lipitor] 20 mg PO BEDTIME 10/18/18 [History] Latanoprost 1 drop EYEBOTH BEDTIME 10/23/18 [History] metFORMIN HCl [Metformin HCl] 500 mg PO DAILY@0800 10/23/18 [History] timoloL maleate [Timoptic 0.5% Ophth Soln] 1 drop EYELF BID 10/23/18 [History] Fluticasone/Salmeterol [Advair 250-50] 2 puff INH BID 30 Days #1 diskus 10/25/18 [Rx] Lactated Ringers [Ringers, Lactated] 125 ml IV Q8H bag 03/25/21 [Rx] metroNIDAZOLE/Normal Saline [Flagyl in NS 500 MG/100 ML] 500 mg IV QID bag 03/25/21 [Rx] Aspirin 81 mg PO DAILY 05/16/21 [History] Past Medical History HEENT History: Reports: None Cardiovascular History: Reports: High Cholesterol, Hypertension Respiratory History: Reports: Pneumonia, Recurrent Gastrointestinal History: Reports: None Genitourinary History: Reports: BPH Musculoskeletal History: Reports: Gout Neurological History: Reports: Neuropathy, Peripheral Psychiatric History: Reports: None Endocrine/Metabolic History: Reports: Obesity/BMI 30+, Other (See Below) Other Endocrine/Metabolic History: pre-diabetic Hematologic History: Reports: None Immunologic History: Reports: None Oncologic (Cancer) History: Reports: None Dermatologic History: Reports: None - Infectious Disease History Infectious Disease History: Reports: Chicken Pox, Measles, Mumps - Past Surgical History HEENT Surgical History: Reports: Cataract Surgery Cardiovascular Surgical History: Reports: None Musculoskeletal Surgical History: Reports: Shoulder Surgery Other Musculoskeletal Surgeries/Procedures:: Back and knee surgery Social & Family History - Family History Family Medical History: No Pertinent Family History Oncologic: Reports: Colon Other Oncologic Family History: Pt's mother - Tobacco Use Tobacco Use Status *Q: Former Tobacco User Used Tobacco, but Quit: Yes Month/Year Tobacco Last Used: 2010 - Caffeine Use Caffeine Use: Reports: Coffee Caffeine Use Comment: very rarely a soda - Recreational Drug Use Recreational Drug Use: No - Living Situation & Occupation Living situation: Reports: , with Family Occupation: Retired ED ROS GENERAL - Review of Systems Review Of Systems: See Below ED EXAM, SKIN/RASH Exam: See Below Course - Vital Signs Last Recorded V/S: Last Vital Signs Temp 98.3 F 05/16/21 18:48 Pulse 79 05/16/21 18:48 Resp 18 05/16/21 18:48 BP 133/73 05/16/21 18:48 Pulse Ox 90 L 05/16/21 18:48 Departure - Departure Time of Disposition: 21:23 Disposition: Home, Self-Care 01 Condition: Good Clinical Impression: Change of dressing, Encounter for change or removal of surgical wound dressing, Biliary drain displacement - Discharge Information Instructions: Biliary Drainage Catheter Home Guide Referrals: Chapin Bliss MD [Primary Care Provider] - Additional Instructions: You were seen and evaluated in ER today for management and changing of your dressing of your biliary drain. Please make an appointment to follow-up with your primary care physician if you develop any new or concerning symptoms. The following information is given to patients seen in the emergency department who are being discharged to home. This information is to outline your options for follow-up care. We provide all patients seen in our emergency department with a follow-up referral. The need for follow-up, as well as the timing and circumstances, are variable depending upon the specifics of your emergency department visit. If you don't have a primary care physician on staff, we will provide you with a referral. We always advise you to contact your personal physician following an emergency department visit to inform them of the circumstance of the visit and for follow-up with them and/or the need for any referrals to a consulting specialist. The emergency department will also refer you to a specialist when appropriate. This referral assures that you have the opportunity for follow-up care with a specialist. All of these measure are taken in an effort to provide you with optimal care, which includes your follow-up. Under all circumstances we always encourage you to contact your private physician who remains a resource for coordinating your care. When calling for follow-up care, please make the office aware that this follow-up is from your recent emergency room visit. If for any reason you are refused follow-up, please contact the [facility] Emergency Department at and asked to speak to the emergency department charge nurse. [facility] [address] [place] [id number] [address] Sepsis Event Note (ED) - Focused Exam Vital Signs: Vital Signs Temp Pulse Resp BP Pulse Ox 05/16/21 18:48 98.3 F 79 18 133/73 90 L
== END 2021-05-16 21:30 | disposition home or self-care (01) ==
LOC: MW.ED 18:35
DX: T85.520A Displacement of bile duct prosthesis, initial encounter (principal); Z48.01 Encounter for change or removal of surgical wound dressing; E78.00 Pure hypercholesterolemia, unspecified; I10 Essential (primary) hypertension; E66.9 Obesity, unspecified; M10.9 Gout, unspecified; Z68.36 Body mass index [BMI] 36.0-36.9, adult; Z87.891 Personal history of nicotine dependence; Z79.82 Long term (current) use of aspirin; Z79.84 Long term (current) use of oral hypoglycemic drugs; Z88.0 Allergy status to penicillin; Z79.899 Other long term (current) drug therapy
CPT/HCPCS: 99282

== ENCOUNTER 2021-06-02 22:51 | Emergency (ER) | payer MEDICARE, OTHER ==
--- NOTE | 2021-06-03 01:28 | EDM.PDOC ---
ED HPI GENERAL MEDICAL PROBLEM - General Chief Complaint: General Stated Complaint: SURGICAL INCISION COMPLIACATIONS Time Seen by Provider: 06/03/21 01:07 Source of Information: Reports: Patient - History of Present Illness INITIAL COMMENTS - FREE TEXT/NARRATIVE: Patient status post surgery yesterday with ANASTACIA drain. He states that he pulled on the drain a little bit and there was some blood around the gauze. Patient denies any abdominal pain or fever or other symptoms at this time Right Abdomen Pain Score (Numeric/FACES): 3 - Related Data Allergies Allergy/AdvReac Type Severity Reaction Status Date / Time Penicillins Allergy Hives Verified 03/24/21 22:02 Home Meds: Home Meds Tamsulosin [Flomax] 0.4 mg PO BEDTIME 10/17/18 [History] hydroCHLOROthiazide [Microzide] 25 mg PO BEDTIME 10/17/18 [History] Aspirin 81 mg PO BEDTIME 10/18/18 [History] Benazepril HCl [Lotensin] 20 mg PO BEDTIME 10/18/18 [History] Naproxen 500 mg PO BID PRN 10/18/18 [History] allopurinoL [Zyloprim] 300 mg PO BEDTIME 10/18/18 [History] atorvaSTATin [Lipitor] 20 mg PO BEDTIME 10/18/18 [History] Latanoprost 1 drop EYEBOTH BEDTIME 10/23/18 [History] metFORMIN HCl [Metformin HCl] 500 mg PO DAILY@0800 10/23/18 [History] timoloL maleate [Timoptic 0.5% Ophth Soln] 1 drop EYELF BID 10/23/18 [History] Fluticasone/Salmeterol [Advair 250-50] 2 puff INH BID 30 Days #1 diskus 10/25/18 [Rx] Lactated Ringers [Ringers, Lactated] 125 ml IV Q8H bag 03/25/21 [Rx] metroNIDAZOLE/Normal Saline [Flagyl in NS 500 MG/100 ML] 500 mg IV QID bag 03/25/21 [Rx] Aspirin 81 mg PO DAILY 05/16/21 [History] Past Medical History HEENT History: Reports: None Cardiovascular History: Reports: High Cholesterol, Hypertension Respiratory History: Reports: Pneumonia, Recurrent Gastrointestinal History: Reports: None Genitourinary History: Reports: BPH Musculoskeletal History: Reports: Gout Neurological History: Reports: Neuropathy, Peripheral Psychiatric History: Reports: None Endocrine/Metabolic History: Reports: Obesity/BMI 30+, Other (See Below) Other Endocrine/Metabolic History: pre-diabetic Hematologic History: Reports: None Immunologic History: Reports: None Oncologic (Cancer) History: Reports: None Dermatologic History: Reports: None - Infectious Disease History Infectious Disease History: Reports: Chicken Pox, Measles, Mumps - Past Surgical History HEENT Surgical History: Reports: Cataract Surgery Cardiovascular Surgical History: Reports: None Musculoskeletal Surgical History: Reports: Shoulder Surgery Other Musculoskeletal Surgeries/Procedures:: Back and knee surgery Social & Family History - Family History Family Medical History: No Pertinent Family History Oncologic: Reports: Colon Other Oncologic Family History: Pt's mother - Tobacco Use Tobacco Use Status *Q: Former Tobacco User Used Tobacco, but Quit: Yes Month/Year Tobacco Last Used: 1999 - Caffeine Use Caffeine Use: Reports: None Caffeine Use Comment: very rarely a soda - Recreational Drug Use Recreational Drug Use: No - Living Situation & Occupation Living situation: Reports: , with Family Occupation: Retired ED ROS GENERAL - Review of Systems Review Of Systems: See Below Constitutional: Denies: Fever GI/Abdominal: Denies: Abdominal Pain Skin: Denies: Rash ED EXAM, GENERAL - Physical Exam Exam: See Below Free Text/Narrative:: CONSTITUTIONAL: well appearing in no acute distress SKIN: Some minor dried blood around the gauze of the ANASTACIA drain. This was cleaned by nursing and they removed a clot also from the lumen of the tube and is draining appropriately HENT: Normocephalic, atraumatic, NECK: normal range of motion PULMONARY: normal chest rise and fall, no respiratory distress or stridor NEUROLOGIC: normal speech, moves all extremities, grossly non-focal MUSCULOSKELETAL: no gross deformities, atraumatic PSYCHIATRIC: normal mood and affect Course - Vital Signs Text/Narrative:: Patient with dressing change to ANASTACIA drain. It is draining well at this time. No abdominal tenderness or pain. Last Recorded V/S: Last Vital Signs Temp 36.4 C 06/03/21 00:41 Pulse 75 06/03/21 00:41 Resp 20 06/03/21 00:41 BP 127/66 06/03/21 00:41 Pulse Ox 89 L 06/03/21 00:41 Departure - Departure Time of Disposition: 01:27 Disposition: DC[facility] 05 Condition: Good Clinical Impression: Dressing change - Discharge Information Instructions: How to Change Your Wound Dressing, [id number] Referrals: Chapin Bliss MD [Primary Care Provider] - Additional Instructions: Return for lack of drainage in the tube, fevers, abdominal pain, change or worsening condition Sepsis Event Note (ED) - Focused Exam Vital Signs: Vital Signs Temp Pulse Resp BP Pulse Ox 06/03/21 00:41 36.4 C 75 20 127/66 89 L 06/02/21 23:23 36.4 C 88 24 H 125/65 91 L
== END 2021-06-03 01:47 | disposition home or self-care (01) ==
LOC: MW.ED 22:51
DX: Z48.01 Encounter for change or removal of surgical wound dressing (principal); E78.00 Pure hypercholesterolemia, unspecified; I10 Essential (primary) hypertension; N40.0 Benign prostatic hyperplasia without lower urinary tract symptoms; M10.9 Gout, unspecified; E66.9 Obesity, unspecified; Z68.36 Body mass index [BMI] 36.0-36.9, adult; Z87.891 Personal history of nicotine dependence; Z88.0 Allergy status to penicillin; Z79.82 Long term (current) use of aspirin; Z79.899 Other long term (current) drug therapy
CPT/HCPCS: 99283

== ENCOUNTER 2021-11-12 19:51 | Emergency (ER) | payer MEDICARE, OTHER ==
[2021-11-12] MEDS ORDERED: Lactated Ringers 1,000 ML IV ONE (21:06)
[2021-11-12] MEDS ORDERED: Morphine 4 MG/ML VIAL IVPUSH ONE (21:06)
[2021-11-12 21:38] LABS: BLOOD UREA NITROGEN,BUN 11 mg/dL (7.0-18.0); CHLORIDE,CL 96 mmol/L (98-107); GLUCOSE RANDOM 110 mg/dL (74-106); POTASSIUM,K 4.2 mmol/L (3.5-5.1); SODIUM,NA 134 mmol/L (136-148)
[2021-11-12] MEDS ORDERED: Iopamidol 755 MG/ML 500 ML Multipack Bottle IVPUSH ONE (21:59)
[2021-11-12] MEDS ORDERED: cefTRIAXone 2 GM in Premix Bag 1 BAG IV ONE (23:40)
[2021-11-12] MEDS ORDERED: metroNIDAZOLE/Normal Saline 500 MG in Premix Bag 1 BAG IV ONE (23:41)
[2021-11-13] MEDS ORDERED: Lactated Ringers 1,000 ML IV STA (01:36)
== END 2021-11-13 02:15 ==
LOC: MW.ED 19:51
DX: K35.80 Unspecified acute appendicitis (principal); I10 Essential (primary) hypertension; E66.9 Obesity, unspecified; Z68.36 Body mass index [BMI] 36.0-36.9, adult; Z20.822 Contact with and (suspected) exposure to COVID-19; Z88.0 Allergy status to penicillin
CPT/HCPCS: 36415; 71046; 74177; 80053; 81001; 83605; 85025; 85610; 93005; 96365; 96375; 99284; J0696; J2270; J3490; J7120; Q9967; U0002

== ENCOUNTER 2024-07-11 06:44 | Observation (INO) | payer MEDICARE, OTHER ==
[~2024-07-11 06:44] MED LIST: Famotidine 20 MG/2 ML SDV ONE
[2024-07-11] MEDS ORDERED: Ropivacaine 49.25 ML, Ketorolac 30 MG, EPINEPHrine 0.5 MG, cloNIDine 80 MCG in Sodium C... INJECT SCH (07:00)
[2024-07-11] MEDS ORDERED: propofoL 50 ML ONE (07:25)
[2024-07-11] MEDS: Famotidine 20 MG/2 ML SDV IVPUSH SCH (07:30)
[2024-07-11] MEDS ORDERED: Ropivacaine 0.5% 5 MG/ML 30 ML SDV ONE (07:40)
[2024-07-11] MEDS ORDERED: Lidocaine 2% 5 ML SDV ONE (07:41)
[2024-07-11] MEDS ORDERED: fentaNYL 100 MCG/2 ML SDV ONE (07:41)
[2024-07-11] MEDS ORDERED: Tranexamic Acid 1,000 MG in Sodium Chloride 0.9% 100 ML IV ONE (08:00)
[2024-07-11] MEDS ORDERED: ceFAZolin 2 GM in Sodium Chloride 0.9% 50 ML IV SCH (08:00)
[2024-07-11] MEDS ORDERED: fentaNYL 50 MCG/ML SDV IVPUSH PRN (08:04)
[2024-07-11] MEDS ORDERED: Ondansetron 4 MG/2 ML SDV IVPUSH PRN ×2 (08:04→11:27)
[2024-07-11] MEDS ORDERED: Metoclopramide 10 MG/2 ML SDV IVPUSH PRN (08:04)
[2024-07-11] MEDS ORDERED: HYDROmorphone 1 MG/ML Syringe IVPUSH PRN ×2 (08:04→11:34)
[2024-07-11] MEDS ORDERED: Albuterol 0.083% 2.5 MG/3 ML Neb Soln NEB PRN (08:04)
[2024-07-11] MEDS ORDERED: Phenylephrine HCl In 0.9% NaCl 1 MG/10 ML Syringe IVPUSH PRN (08:04)
[2024-07-11] MEDS ORDERED: Naloxone 0.4 MG/ML SDV IVPUSH PRN (08:04)
[2024-07-11] MEDS ORDERED: Morphine 2 MG/ML SYRINGE IVPUSH PRN (08:04)
[2024-07-11] MEDS: Lactated Ringers 1,000 ML IV SCH (08:07)
[2024-07-11] MEDS ORDERED: ceFAZolin 2 GM Vial ONE (09:01)
[2024-07-11] MEDS ORDERED: Tranexamic Acid 1,000 MG/10 ML Vial ONE (09:01)
[2024-07-11] MEDS ORDERED: ceFAZolin 1 GM Vial ONE ×2 (09:10→09:59)
[2024-07-11] MEDS ORDERED: dexmedeTOMIDine HCl 200 MCG/2 ML SDV ONE (09:19)
[2024-07-11] MEDS ORDERED: Propofol 200 MG/20 ML SDV ONE ×2 (10:00→10:27)
[2024-07-11] MEDS ORDERED: traMADol 50 MG Tab PO PRN ×2 (11:27)
[2024-07-11] MEDS ORDERED: Sodium Chloride 0.9% 2.5 ML Syringe FLUSH PRN (11:27)
[2024-07-11] MEDS ORDERED: Sodium Chloride 0.9% 10 ML Syringe FLUSH PRN (11:27)
[2024-07-11] MEDS ORDERED: diphenhydrAMINE 25 MG Cap PO PRN (11:27)
[2024-07-11] MEDS: Acetaminophen 325 MG Tab PO SCH (13:19)
[2024-07-11] MEDS ORDERED: Albuterol/Ipratropium 3.0-0.5 MG/3 ML Neb Soln NEB PRN (14:42)
[2024-07-11] MEDS ORDERED: Sodium Chloride 0.65% Nasal Spray 45 ML Bottle NAS PRN (14:42)
[2024-07-11] MEDS ORDERED: 50% Dextrose in Water 50 ML Syringe IVPUSH PRN (14:42)
[2024-07-11] MEDS ORDERED: Glucagon,Human Recombinant 1 MG Vial IM PRN (14:42)
[2024-07-11 15:27] LABS: HEMATOCRIT 35.1 % (42.0-52.0); HEMOGLOBIN 11.3 g/dL (14.0-18.0); MEAN CORPUSCULAR HGB CONC 32.2 g/dL (32.0-36.0); MEAN CORPUSCULAR VOLUME 96.2 fL (83.0-99.0); MEAN PLATELET VOLUME 9.4 fL (9.4-12.4); PLATELET COUNT,PLT 141 K/uL (150-400); RED BLOOD CELL COUNT 3.65 M/uL (4.52-5.90); WHITE BLOOD CELL COUNT,WBC 8.44 K/uL (3.9-11.3)
[2024-07-11 15:59] LABS: CARBON DIOXIDE,CO2 32.1 mmol/L (21.0-32.0); CREATININE 1.1 mg/dL (0.8-1.3); EST CRCL DRUG DOSING (CG) 52.67 mL/min; POTASSIUM,K 4.3 mmol/L (3.5-5.1)
[2024-07-11] MEDS ORDERED: Albuterol 8 GM Inhaler INH PRN (16:00)
[2024-07-11 16:27] LABS: LYMPHOCYTES ABSOLUTE MAN 1.69 K/uL (1.00-4.80); LYMPHOCYTES PERCENT MAN 20 % (24-44); MONOCYTES PERCENT MAN 13 % (0-8); SEG NEUTROPHILS ABSOLUTE MAN 5.65 K/uL (1.80-7.70); SEG NEUTROPHILS PERCENT MAN 67 % (41-71)
[2024-07-11] MEDS: Insulin Aspart 100 Units/ML 3 ML Pen SUBCUT SCH (17:21)
[2024-07-11] MEDS: ceFAZolin 2 GM in Sodium Chloride 0.9% 50 ML IV SCH (17:41)
[2024-07-11] MEDS: GLYCOPYRROLATE INH SCH (21:22)
[2024-07-11] MEDS: BUDESONIDE INH SCH (21:22)
[2024-07-11] MEDS: FORMOTEROL INH SCH (21:22)
[2024-07-11] MEDS: atorvaSTATin 20 MG Tab PO SCH (21:23)
[2024-07-11] MEDS: Tamsulosin 0.4 MG Cap.ER PO SCH (21:23)
[2024-07-11] MEDS: Allopurinol 300 MG Tab PO SCH (21:23)
[2024-07-11] MEDS: Docusate Sodium 100 MG Cap PO SCH (21:24)
[2024-07-11] MEDS: Aspirin 325 MG Tab PO SCH (21:31)
[2024-07-12 06:33] LABS: HEMATOCRIT 34.3 % (42.0-52.0); HEMOGLOBIN 10.5 g/dL (14.0-18.0)
[2024-07-12] MEDS: Levothyroxine 50 MCG Tab PO SCH (06:41)
[2024-07-12 06:51] LABS: CARBON DIOXIDE,CO2 31.2 mmol/L (21.0-32.0); CREATININE 1.2 mg/dL (0.8-1.3); EST CRCL DRUG DOSING (CG) 48.28 mL/min
[2024-07-12] MEDS: Polyethylene Glycol 3350 Powder 17 GM Packet PO SCH (08:58)
[2024-07-12] MEDS: Allopurinol 300 MG Tab PO SCH (08:59)
[2024-07-12] MEDS: Famotidine 20 MG Tab PO SCH (08:59)
[2024-07-12] MEDS: Cholecalciferol (Vitamin D3) 25 MCG Tab PO SCH (08:59)
[2024-07-12] MEDS: Tamsulosin 0.4 MG Cap.ER PO SCH (08:59)
[2024-07-12] MEDS: atorvaSTATin 20 MG Tab PO SCH (09:01)
[2024-07-12] MEDS: oxyCODONE 5 MG Tab PO PRN (12:28)
== END 2024-07-12 16:35 | disposition home or self-care (01) ==
LOC: MW.SDS 06:44 → MW.MS 11:00 → MW.SDS 11:00 → MW.MS 12:31
PROVIDERS: ADMIT Orthopaedic Surgery; ATTEND Orthopaedic Surgery
DX: M17.11 Unilateral primary osteoarthritis, right knee (principal); J44.9 Chronic obstructive pulmonary disease, unspecified; J43.1 Panlobular emphysema; I11.0 Hypertensive heart disease with heart failure; I50.9 Heart failure, unspecified; E11.9 Type 2 diabetes mellitus without complications; K21.9 Gastro-esophageal reflux disease without esophagitis; E03.9 Hypothyroidism, unspecified; I25.10 Atherosclerotic heart disease of native coronary artery without angina pectoris; Z79.84 Long term (current) use of oral hypoglycemic drugs; Z79.890 Hormone replacement therapy; Z79.899 Other long term (current) drug therapy
CPT/HCPCS: 27447; 36415; 64447; 73560; 80048; 82947; 85007; 85014; 85018; 85027; 86850; 86900; 86901; 97110; 97116; 97161; A9270; C1776; J0171; J0690; J0735; J1885; J2704; J2795; J3010; J3490; J7120; 01402; 99100

== ENCOUNTER 2024-07-16 10:20 | Inpatient (IN) | payer MEDICARE, OTHER ==
[2024-07-16] MEDS ORDERED: Sodium Chloride 0.9% 2.5 ML Syringe FLUSH PRN ×2 (10:43→15:06)
[2024-07-16] MEDS ORDERED: Sodium Chloride 0.9% 10 ML Syringe FLUSH PRN ×2 (10:43→15:06)
[2024-07-16 11:35] LABS: BASOPHILS ABSOLUTE AUTO 0.01 K/uL (0.00-0.20); BASOPHILS PERCENT AUTO 0.1 % (0.0-1.0); EOSINOPHILS PERCENT AUTO 4.1 % (0.0-6.0); HEMATOCRIT 29.4 % (42.0-52.0); HEMOGLOBIN 9.5 g/dL (14.0-18.0); LYMPHOCYTES PERCENT AUTO 19.7 % (24.0-44.0); MEAN CORPUSCULAR HEMOGLOBIN 30.7 pg (28.0-32.0); MEAN CORPUSCULAR HGB CONC 32.3 g/dL (32.0-36.0); MEAN CORPUSCULAR VOLUME 95.1 fL (83.0-99.0); MEAN PLATELET VOLUME 9.1 fL (9.4-12.4); MONOCYTES ABSOLUTE AUTO 1.44 K/uL (0.00-0.80); MONOCYTES PERCENT AUTO 14.9 % (0.0-8.0); NEUTROPHILS ABSOLUTE AUTO 5.79 K/uL (1.80-7.70); NEUTROPHILS PERCENT AUTO 60.2 % (41.0-71.0); PLATELET COUNT,PLT 226 K/uL (150-400); RED BLOOD CELL COUNT 3.09 M/uL (4.52-5.90); WHITE BLOOD CELL COUNT,WBC 9.64 K/uL (3.9-11.3)
[2024-07-16 12:04] LABS: A/G RATIO 0.6 (0.9-1.6); ALBUMIN 2.6 g/dL (3.4-5.0); BILIRUBIN TOTAL 1.1 mg/dL (0.2-1.0); CALCIUM 8.7 mg/dL (8.5-10.1); CARBON DIOXIDE,CO2 31.4 mmol/L (21.0-32.0); CREATININE 1.2 mg/dL (0.8-1.3); EST CRCL DRUG DOSING (CG) 46.71 mL/min; MAGNESIUM 1.7 mg/dL (1.8-2.4); PROTEIN TOTAL,TP 7.3 g/dL (6.4-8.2)
[2024-07-16] MEDS: Ondansetron 4 MG/2 ML SDV IVPUSH ONE (12:21)
[2024-07-16] MEDS: fentaNYL 50 MCG/ML SDV IVPUSH ONE (12:21)
[2024-07-16] MEDS: ceFAZolin 1 GM in Sodium Chloride 0.9% 50 ML IV SCH (12:59)
[2024-07-16] MEDS: Iopamidol 755 MG/ML 500 ML Multipack Bottle IVPUSH STA (13:24)
[2024-07-16] MEDS ORDERED: Acetaminophen 325 MG Tab PO PRN (15:06)
[2024-07-16] MEDS ORDERED: Ondansetron 4 MG/2 ML SDV IVPUSH PRN (15:06)
[2024-07-16] MEDS ORDERED: Albuterol/Ipratropium 3.0-0.5 MG/3 ML Neb Soln NEB PRN (15:06)
[2024-07-16] MEDS ORDERED: Glucagon,Human Recombinant 1 MG Vial IM PRN (15:11)
[2024-07-16] MEDS ORDERED: 50% Dextrose in Water 50 ML Syringe IVPUSH PRN (15:11)
[2024-07-16] MEDS ORDERED: Albuterol 8 GM Inhaler INH PRN (15:12)
[2024-07-16] MEDS: Furosemide 40 MG/4 ML VIAL IVPUSH ONE (15:51)
[2024-07-16] MEDS: Cefepime 2 GM in Sodium Chloride 0.9% 50 ML IV SCH (15:51)
[2024-07-16] MEDS: Heparin Sodium 5,000 Units/ML Vial SUBCUT SCH (15:52)
[2024-07-16] MEDS: Acetaminophen 325 MG Tab PO SCH (15:52)
[2024-07-16] MEDS: Polyethylene Glycol 3350 Powder 17 GM Packet PO SCH (15:59)
[2024-07-16] MEDS ORDERED: Pneumococcal Polyvalent-23 Vaccine 0.5 ML SDV IM ONE (16:41)
[2024-07-16] MEDS: VANCOmycin 2 GM/400 ML 2 GM in Premix Bag 1 BAG IV ONE (17:01)
[2024-07-16] MEDS: Insulin Aspart 100 Units/ML 3 ML Pen SUBCUT SCH (17:05)
[2024-07-16 19:45] LABS: APPEARANCE,URINE CLEAR; BILIRUBIN,URINE NEGATIVE (NEGATIVE); COLOR,URINE YELLOW; GLUCOSE,URINE NEGATIVE (NEGATIVE); KETONES,URINE NEGATIVE (NEGATIVE); LEUKOCYTE ESTERASE,URINE NEGATIVE (NEGATIVE); NITRITE,URINE NEGATIVE (NEGATIVE); OCCULT BLOOD,URINE TRACE-INTACT (NEGATIVE); PH,URINE 5.5 (5.0-8.0); PROTEIN,URINE NEGATIVE (NEGATIVE); UROBILINOGEN,URINE 0.2 EU/dL (<2.0)
[2024-07-16 20:03] LABS: BACTERIA,URINE RARE (NEGATIVE); EPITHELIAL CELLS,URINE OCCASIONAL (NONE-FEW); RBC,URINE 0-2 (0-2/HPF); WBC,URINE 0-2 (0-5/HPF)
[2024-07-16] MEDS: atorvaSTATin 20 MG Tab PO SCH (20:42)
[2024-07-16] MEDS: Sennosides/Docusate Sodium 50-8.6 MG Tab PO SCH (20:42)
[2024-07-16] MEDS: traMADol 50 MG Tab PO PRN (21:04)
[2024-07-16] MEDS: GLYCOPYR INH SCH (21:05)
[2024-07-16] MEDS: FORMOTEROL INH SCH (21:05)
[2024-07-16] MEDS: BUDESONIDE INH SCH (21:05)
[2024-07-17] MEDS: Heparin Sodium 5,000 Units/ML Vial SUBCUT SCH (05:01)
[2024-07-17 06:28] LABS: BASOPHILS ABSOLUTE AUTO 0.01 K/uL (0.00-0.20); BASOPHILS PERCENT AUTO 0.1 % (0.0-1.0); EOSINOPHILS ABSOLUTE AUTO 0.39 K/uL (0.00-0.45); EOSINOPHILS PERCENT AUTO 5.1 % (0.0-6.0); HEMATOCRIT 29.2 % (42.0-52.0); IMMATURE GRAN ABSOLUTE AUTO 0.07 K/uL (0.00-0.05); IMMATURE GRAN PERCENT AUTO 0.9 % (0.0-0.4); LYMPHOCYTES ABSOLUTE AUTO 1.69 K/uL (1.00-4.80); MEAN CORPUSCULAR HEMOGLOBIN 29.8 pg (28.0-32.0); MEAN CORPUSCULAR HGB CONC 30.8 g/dL (32.0-36.0); MEAN CORPUSCULAR VOLUME 96.7 fL (83.0-99.0); MONOCYTES ABSOLUTE AUTO 1.09 K/uL (0.00-0.80); MONOCYTES PERCENT AUTO 14.2 % (0.0-8.0); NEUTROPHILS ABSOLUTE AUTO 4.42 K/uL (1.80-7.70); NEUTROPHILS PERCENT AUTO 57.7 % (41.0-71.0); NRBC ABSOLUTE 0.02 K/uL (0.00-0.02); NRBC PERCENT 0.3 /100WBC (0.0-0.2); PLATELET COUNT,PLT 224 K/uL (150-400); RED BLOOD CELL COUNT 3.02 M/uL (4.52-5.90); WHITE BLOOD CELL COUNT,WBC 7.67 K/uL (3.9-11.3)
[2024-07-17 07:05] LABS: CALCIUM 8.6 mg/dL (8.5-10.1); CARBON DIOXIDE,CO2 32.3 mmol/L (21.0-32.0); CREATININE 1.2 mg/dL (0.8-1.3); EST CRCL DRUG DOSING (CG) 46.71 mL/min; MAGNESIUM 1.8 mg/dL (1.8-2.4)
[2024-07-17] MEDS: Levothyroxine 50 MCG Tab PO SCH (07:32)
[2024-07-17] MEDS: Tamsulosin 0.4 MG Cap.ER PO SCH (09:28)
[2024-07-17] MEDS: Cholecalciferol (Vitamin D3) 25 MCG Tab PO SCH (09:28)
[2024-07-17] MEDS: Aspirin 325 MG Tab PO SCH (09:28)
[2024-07-17] MEDS: Allopurinol 300 MG Tab PO SCH (09:28)
[2024-07-17] MEDS: Furosemide 40 MG/4 ML VIAL IVPUSH ONE (10:47)
[2024-07-17] MEDS: VANCOmycin 1.5 GM/300 ML 1.5 GM in Premix Bag 1 BAG IV SCH (16:22)
[2024-07-18 05:46] LABS: BASOPHILS ABSOLUTE AUTO 0.01 K/uL (0.00-0.20); BASOPHILS PERCENT AUTO 0.1 % (0.0-1.0); EOSINOPHILS ABSOLUTE AUTO 0.41 K/uL (0.00-0.45); EOSINOPHILS PERCENT AUTO 4.5 % (0.0-6.0); HEMATOCRIT 28.7 % (42.0-52.0); IMMATURE GRAN ABSOLUTE AUTO 0.12 K/uL (0.00-0.05); IMMATURE GRAN PERCENT AUTO 1.3 % (0.0-0.4); LYMPHOCYTES ABSOLUTE AUTO 1.78 K/uL (1.00-4.80); LYMPHOCYTES PERCENT AUTO 19.7 % (24.0-44.0); MEAN CORPUSCULAR HEMOGLOBIN 30.1 pg (28.0-32.0); MEAN CORPUSCULAR HGB CONC 31.4 g/dL (32.0-36.0); MEAN PLATELET VOLUME 8.8 fL (9.4-12.4); MONOCYTES ABSOLUTE AUTO 1.25 K/uL (0.00-0.80); MONOCYTES PERCENT AUTO 13.8 % (0.0-8.0); NEUTROPHILS ABSOLUTE AUTO 5.47 K/uL (1.80-7.70); NEUTROPHILS PERCENT AUTO 60.6 % (41.0-71.0); PLATELET COUNT,PLT 248 K/uL (150-400); RED BLOOD CELL COUNT 2.99 M/uL (4.52-5.90); WHITE BLOOD CELL COUNT,WBC 9.04 K/uL (3.9-11.3)
[2024-07-18 06:08] LABS: CALCIUM 8.5 mg/dL (8.5-10.1); CARBON DIOXIDE,CO2 34.3 mmol/L (21.0-32.0); CREATININE 1.1 mg/dL (0.8-1.3); EST CRCL DRUG DOSING (CG) 50.95 mL/min; MAGNESIUM 1.7 mg/dL (1.8-2.4)
[2024-07-18] MEDS: Magnesium Sulfate/Water Premix 2 GM in Premix Bag 1 BAG IV ONE (08:15)
[2024-07-18] MEDS: Bisacodyl 10 MG Supp RECTAL ONE (15:17)
[2024-07-18] MEDS ORDERED: FLU (Fluad Triv) TS24-25 (65UP)/MF59C/PF 45 MCG/0.5 ML Syringe IM ONE (16:45)
[2024-07-19 05:59] LABS: BASOPHILS ABSOLUTE AUTO 0.01 K/uL (0.00-0.20); BASOPHILS PERCENT AUTO 0.1 % (0.0-1.0); EOSINOPHILS ABSOLUTE AUTO 0.37 K/uL (0.00-0.45); EOSINOPHILS PERCENT AUTO 4.3 % (0.0-6.0); HEMATOCRIT 29.6 % (42.0-52.0); HEMOGLOBIN 9.2 g/dL (14.0-18.0); IMMATURE GRAN ABSOLUTE AUTO 0.09 K/uL (0.00-0.05); IMMATURE GRAN PERCENT AUTO 1.1 % (0.0-0.4); LYMPHOCYTES ABSOLUTE AUTO 1.73 K/uL (1.00-4.80); LYMPHOCYTES PERCENT AUTO 20.3 % (24.0-44.0); MEAN CORPUSCULAR HGB CONC 31.1 g/dL (32.0-36.0); MEAN CORPUSCULAR VOLUME 96.4 fL (83.0-99.0); MEAN PLATELET VOLUME 8.6 fL (9.4-12.4); MONOCYTES ABSOLUTE AUTO 1.08 K/uL (0.00-0.80); MONOCYTES PERCENT AUTO 12.7 % (0.0-8.0); NEUTROPHILS ABSOLUTE AUTO 5.25 K/uL (1.80-7.70); NEUTROPHILS PERCENT AUTO 61.5 % (41.0-71.0); PLATELET COUNT,PLT 302 K/uL (150-400); RED BLOOD CELL COUNT 3.07 M/uL (4.52-5.90); WHITE BLOOD CELL COUNT,WBC 8.53 K/uL (3.9-11.3)
[2024-07-19 06:19] LABS: CALCIUM 8.8 mg/dL (8.5-10.1); CARBON DIOXIDE,CO2 35.6 mmol/L (21.0-32.0); CREATININE 1.1 mg/dL (0.8-1.3); EST CRCL DRUG DOSING (CG) 50.95 mL/min; POTASSIUM,K 4.2 mmol/L (3.5-5.1)
[2024-07-20 06:16] LABS: BASOPHILS ABSOLUTE AUTO 0.01 K/uL (0.00-0.20); BASOPHILS PERCENT AUTO 0.1 % (0.0-1.0); EOSINOPHILS ABSOLUTE AUTO 0.38 K/uL (0.00-0.45); EOSINOPHILS PERCENT AUTO 4.9 % (0.0-6.0); HEMATOCRIT 28.7 % (42.0-52.0); HEMOGLOBIN 9.2 g/dL (14.0-18.0); IMMATURE GRAN ABSOLUTE AUTO 0.11 K/uL (0.00-0.05); IMMATURE GRAN PERCENT AUTO 1.4 % (0.0-0.4); LYMPHOCYTES ABSOLUTE AUTO 1.66 K/uL (1.00-4.80); LYMPHOCYTES PERCENT AUTO 21.4 % (24.0-44.0); MEAN CORPUSCULAR HEMOGLOBIN 30.7 pg (28.0-32.0); MEAN CORPUSCULAR HGB CONC 32.1 g/dL (32.0-36.0); MEAN CORPUSCULAR VOLUME 95.7 fL (83.0-99.0); MEAN PLATELET VOLUME 8.5 fL (9.4-12.4); MONOCYTES PERCENT AUTO 12.9 % (0.0-8.0); NEUTROPHILS ABSOLUTE AUTO 4.61 K/uL (1.80-7.70); NEUTROPHILS PERCENT AUTO 59.3 % (41.0-71.0); PLATELET COUNT,PLT 296 K/uL (150-400); WHITE BLOOD CELL COUNT,WBC 7.77 K/uL (3.9-11.3)
[2024-07-20 06:37] LABS: CALCIUM 8.7 mg/dL (8.5-10.1); CARBON DIOXIDE,CO2 35.3 mmol/L (21.0-32.0); CREATININE 1.1 mg/dL (0.8-1.3); EST CRCL DRUG DOSING (CG) 50.95 mL/min; POTASSIUM,K 4.4 mmol/L (3.5-5.1)
[2024-07-20] MEDS: Furosemide 20 MG Tab PO SCH (18:27)
[2024-07-21 05:57] LABS: BASOPHILS ABSOLUTE AUTO 0.01 K/uL (0.00-0.20); BASOPHILS PERCENT AUTO 0.1 % (0.0-1.0); EOSINOPHILS ABSOLUTE AUTO 0.41 K/uL (0.00-0.45); EOSINOPHILS PERCENT AUTO 5.4 % (0.0-6.0); HEMATOCRIT 30.1 % (42.0-52.0); HEMOGLOBIN 9.4 g/dL (14.0-18.0); IMMATURE GRAN ABSOLUTE AUTO 0.14 K/uL (0.00-0.05); IMMATURE GRAN PERCENT AUTO 1.8 % (0.0-0.4); LYMPHOCYTES ABSOLUTE AUTO 1.68 K/uL (1.00-4.80); MEAN CORPUSCULAR HGB CONC 31.2 g/dL (32.0-36.0); MEAN CORPUSCULAR VOLUME 96.2 fL (83.0-99.0); MEAN PLATELET VOLUME 8.4 fL (9.4-12.4); MONOCYTES ABSOLUTE AUTO 1.02 K/uL (0.00-0.80); MONOCYTES PERCENT AUTO 13.3 % (0.0-8.0); NEUTROPHILS ABSOLUTE AUTO 4.39 K/uL (1.80-7.70); NEUTROPHILS PERCENT AUTO 57.4 % (41.0-71.0); PLATELET COUNT,PLT 313 K/uL (150-400); RED BLOOD CELL COUNT 3.13 M/uL (4.52-5.90); WHITE BLOOD CELL COUNT,WBC 7.65 K/uL (3.9-11.3)
[2024-07-21 06:15] LABS: CALCIUM 8.6 mg/dL (8.5-10.1); CARBON DIOXIDE,CO2 34.5 mmol/L (21.0-32.0); CREATININE 1.1 mg/dL (0.8-1.3); EST CRCL DRUG DOSING (CG) 50.95 mL/min; POTASSIUM,K 4.2 mmol/L (3.5-5.1)
[2024-07-22] MEDS: VANCOmycin 1.75 GM/350 ML 1.75 GM in Premix Bag 1 BAG IV SCH (21:31)
== END 2024-07-24 12:00 | disposition home or self-care (01) | DRG 603 ==
LOC: MW.ED 10:20 → MW.MS 13:51 → UNDODISIN 07-24 12:00
PROVIDERS: ADMIT Family Medicine; ATTEND Internal Medicine
DX: L03.115 Cellulitis of right lower limb (principal); J42 Unspecified chronic bronchitis; N40.1 Benign prostatic hyperplasia with lower urinary tract symptoms; R39.11 Hesitancy of micturition; Z75.8 Other problems related to medical facilities and other health care; E78.00 Pure hypercholesterolemia, unspecified; H54.7 Unspecified visual loss; G47.33 Obstructive sleep apnea (adult) (pediatric); M10.9 Gout, unspecified; E66.9 Obesity, unspecified; E03.9 Hypothyroidism, unspecified; Z68.41 Body mass index [BMI] 40.0-44.9, adult; S80.11XA Contusion of right lower leg, initial encounter; I27.20 Pulmonary hypertension, unspecified; Z88.0 Allergy status to penicillin; Z79.82 Long term (current) use of aspirin; Z79.899 Other long term (current) drug therapy; Z79.84 Long term (current) use of oral hypoglycemic drugs; Z79.890 Hormone replacement therapy; Z90.49 Acquired absence of other specified parts of digestive tract; Z90.89 Acquired absence of other organs; Z98.49 Cataract extraction status, unspecified eye; Z98.890 Other specified postprocedural states; Z96.651 Presence of right artificial knee joint; Z68.38 Body mass index [BMI] 38.0-38.9, adult
CPT/HCPCS: 36415; 71045; 71275; 80053; 83605; 83735; 83880; 84484; 85025; 87040 ×2; 93005; 93971; 96365; 96375; 99285; J0690; J2405; J3010; J3490; Q9967; 80048; 80202; 81001; 82947; 93010; 93306; 97110-GP; 97140-GO; 97162-GP; 97165-GO; 97168-GO; 99222; 99232; 99238; 99284; A9270-GY; J0692; J1644; J1815-GY; J1940; J3371; J3372; J3475; J7050